=== PATIENT | female | born 1985 | race Caucasian/White ===

== ENCOUNTER 2018-04-10 00:42 | Observation (INO) | payer SELFPAY ==
[2018-04-10] MEDS ORDERED: ASPIRIN 81 MG TABLET, CHEWABLE PO ONE (01:01)
--- NOTE | 2018-04-10 01:02 | ER Document Report ---
ED Medical Screen (RME) - General Chief Complaint: Chest Pain Stated Complaint: CHEST PAIN/NAUSEA/SHORTNESS OF BREATH Time Seen by Provider: 04/10/18 00:55 Mode of Arrival: Ambulatory Information source: Patient Notes: Timothy is a 32-year-old female comes emergency room complaining of chest pain onset 2 hours prior to arrival. The pain woke her up out of sleep and is on the left side of her chest and radiates down her arm in the left side. States the whole side of her arm is tingly. She admits to being slightly short of breath. She states that she had a major MS back in May of this past year. She admits to be in a type II diabetic which is Lantus dependent so insulin- dependent diabetic taking oral medications as well. She states her family has a strong history of cardiac problems her mother father and all the people on that side of the family. She admits to smoking 1/2 pack cigarettes a day. - HPI Onset: Other - 2 hours prior to arrival Onset/Duration: Sudden, Persistent, Worse Quality of pain: Sharp, Stabbing, Throbbing Pain Level: 4 Associated Symptoms: Cough (nonproductive), Nausea. denies: Vomiting Exacerbated by: Movement, Other - Exertion Relieved by: Denies, Other - Still rates the pain a 7 out of 10 Similar symptoms previously: Yes Recently seen / treated by doctor: No - Related Data Smoking: Non-smoker Past Medical History - General Information source: Patient - Social History Cigarette use (# per day): Yes - Half-pack to a pack a day Chew tobacco use (# tins/day): No Frequency of alcohol use: None Drug Abuse: None Lives with: Family, Spouse/Significant other Family history: Reviewed & Not Pertinent Review of Systems - Review of Systems Constitutional: No symptoms reported EENT: No symptoms reported Cardiovascular: Chest pain Respiratory: Cough, Short of breath Gastrointestinal: No symptoms reported Genitourinary: No symptoms reported Female Genitourinary: No symptoms reported Musculoskeletal: No symptoms reported Skin: No symptoms reported Hematologic/Lymphatic: No symptoms reported Neurological/Psychological: No symptoms reported -: Yes All other systems reviewed and negative Physical Exam - Vital signs Interpretation: Hypertensive - Respiratory Respiratory status: No respiratory distress Chest status: Tender Breath sounds: Decreased air movement, Rhonchi, Wheezing Chest palpation: Normal - Cardiovascular Rhythm: Regular Heart sounds: Normal auscultation Murmur: No - Neurological Neuro grossly intact: Yes Cognition: Normal Orientation: AAOx4 Kenneth Coma Scale Eye Opening: Spontaneous [place] Coma Scale Verbal: Oriented [place] Coma Scale Motor: Obeys Commands [place] Coma Scale Total: 15 Speech: Normal Doctor's Discharge - Discharge Clinical Impression: Chest pain Qualifiers: Chest pain type: unspecified Qualified Code(s): R07.9 - Chest pain, unspecified Forms: Elevated Blood Pressure
--- NOTE | 2018-04-10 01:18 | ER Document Report ---
ED General - General Chief Complaint: Chest Pain Stated Complaint: CHEST PAIN/NAUSEA/SHORTNESS OF BREATH Time Seen by Provider: 04/10/18 00:55 Mode of Arrival: Ambulatory Notes: Patient is a 32-year-old female with a previous history of IA who presents with complaint of chest pain started tonight. She recently moved here from [place]. She had an IA in May of last year. She was seen in [facility]. There she had a heart cath which showed that she had a 70% blockage; however, her artery is too narrow to place a stent and therefore the continue with medical therapy. She currently is on metoprolol and aspirin. She states she has been on Plavix however because the better taste in her mouth and therefore they stopped the medication. She also used to be on a statin however she says "my cholesterol got too low" and therefore they stopped that medication as well. She does not yet have a doctor since moving to this area. She does take medications for diabetes as well. She says her blood sugar usually runs between 2 and 300. The chest pain is substernal left-sided and radiating into the neck and back. She feels a little short of breath with it. No leg pain or leg swelling. No history of PE or DVT. - Related Data Allergies/Adverse Reactions: trazodone Allergy (Verified 04/10/18 01:10) Past Medical History - General Information source: Patient - Social History Smoking Status: Unknown if Ever Smoked Cigarette use (# per day): Yes - Half-pack to a pack a day Chew tobacco use (# tins/day): No Frequency of alcohol use: None Drug Abuse: None Lives with: Family, Spouse/Significant other Family History: CAD Review of Systems - Review of Systems Notes: My Normal Review Basic REVIEW OF SYSTEMS: CONSTITUTIONAL : Denies fever, chills, or sweats. Denies recent illness. EENT: Denies eye, ear, throat, or mouth pain or symptoms. Denies nasal or sinus congestion. CARDIOVASCULAR: Has chest pain RESPIRATORY: Denies cough, cold, or chest congestion. Denies shortness of breath, difficulty breathing, or wheezing. GASTROINTESTINAL: Denies abdominal pain. Denies nausea, vomiting, or diarrhea. MUSCULOSKELETAL: Denies neck or back pain or joint pain or swelling. SKIN: Denies rash or skin lesions. NEUROLOGICAL: Denies altered mental status or loss of consciousness. ALL OTHER SYSTEMS REVIEWED AND NEGATIVE. Physical Exam - Vital signs Vitals: Temp Pulse Resp BP Pulse Ox 97.8 F 82 20 156/85 H 100 04/10/18 00:59 04/10/18 00:59 04/10/18 00:59 04/10/18 00:59 04/10/18 00:59 - Notes Notes: General Appearance: Well nourished, alert, cooperative, no acute distress, moderate obvious discomfort. Vitals: reviewed, See vital signs table. Eyes: PERRL, EOMI, Conjuctiva clear Mouth: No decreasd moisture Chest wall: No reproducible pain to palpation of chest wall. Lungs: No wheezing, No rales, No rhonci, No accessory muscle use, good air exchange bilaterally. Heart: Normal rate, Regular rythm, No murmur, no rub Abdomen: Normal BS, soft, No rigidity, No abdominal tenderness, No guarding, no rebound, no abdominal masses, no organomegaly Extremities: strength 5/5 in all extremities, good pulses in all extremities, no swelling or tenderness in the extremities, no edema. Skin: warm, dry, appropriate color, no rash Neuro: speech clear, oriented x 3, normal affect, responds appropriately to questions. Course - Re-evaluation Re-evalutation: 04/10/18 02:05 Patient still have significant pain after nitro. She says the nitro is never really helped in the past. We will give her a dose of morphine. I will recheck her EKG. initial troponin is negative. 04/10/18 02:06 04/10/18 03:01 Patient's repeat EKG is normal-appearing. She still having some pain but says it is improving some since morphine. She says she does have some anxiety because she is scared because of her history. I will give her small dose of Ativan. I talked to patient about admission to the hospital and she is agreeable to this. I will speak with the hospitalist. 04/10/18 04:32 Patient's chest pain has improved significantly but she still has some mild chest pain. Ativan did help with some of her anxiety. I did speak with the hospitalist, Dr. Rodgers, who agrees to evaluate the patient for admission. - Vital Signs Vital signs: Temp Pulse Resp BP Pulse Ox 97.8 F 82 16 138/77 H 96 04/10/18 00:59 04/10/18 00:59 04/10/18 03:31 04/10/18 03:31 04/10/18 03:31 - Laboratory Result Diagrams: 04/10/18 01:15 04/10/18 01:15 Laboratory results interpreted by me: 04/10/18 04/10/18 01:15 01:15 WBC 11.8 H RBC 5.50 H MCH 26.4 L RDW 15.0 H Absolute Neutrophils 8.9 H Sodium 136.9 L Potassium 5.2 H Glucose 209 H - EKG Interpretation by Me Additional EKG results interpreted by me: 04/10/18 01:17 EKG is reviewed and interpreted by me. EKG shows sinus rhythm with a rate of [address] segment elevation or depression. No ischemic T wave inversions. RI interval, QRS duration, QTc intervals are within normal range. No old EKG available for comparison. 04/10/18 02:22 EKG #2 is reviewed and interpreted by me. EKG shows sinus rhythm with a rate of [address] segment elevation or depression. No ischemic T wave inversions. RI interval, QRS duration, QTc intervals are within normal range. Discharge - Discharge Clinical Impression: Chest pain Qualifiers: Chest pain type: unspecified Qualified Code(s): R07.9 - Chest pain, unspecified Condition: Stable Disposition: ADMITTED OBSERVATION Admitting Provider: Hospitalist Unit Admitted: Telemetry Forms: Elevated Blood Pressure
[2018-04-10 01:32] LABS: ABSOLUTE BASOPHILS # (AUTO) 0.1 10^3/uL (0.0-0.2); ABSOLUTE EOSINOPHILS # (AUTO) 0.2 10^3/uL (0.0-0.6); ABSOLUTE MONOCYTES (AUTO) 0.6 10^3/uL (0.1-1.4); ABSOLUTE NEUT (AUTO) 8.9 10^3/uL (1.7-8.2); HEMATOCRIT 44.4 % (36.0-47.0); HEMOGLOBIN 14.5 g/dL (12.0-15.5); MEAN CORPUSCULAR HEMOGLOBIN 26.4 pg (27.0-33.4); MEAN CORPUSCULAR HGB CONC 32.7 g/dL (32.0-36.0); MEAN CORPUSCULAR VOLUME 81 fl (80-97); MONOCYTES % (AUTO) 5.1 % (3-13); PLATELET COUNT 296 10^3/uL (150-450); SEGMENTED NEUTROPHILS % (AUTO) 74.9 % (42-78); TOTAL CELLS COUNTED % (AUTO) 100 %; WHITE BLOOD COUNT 11.8 10^3/uL (4.0-10.5)
[2018-04-10] MEDS: NITROGLYCERIN 0.4 MG/TAB 25 TAB/BOTTLE SL PRN ×2 (01:33→02:16)
[2018-04-10 01:44] LABS: ALANINE AMINOTRANSFERASE 21 U/L (9-52); ALBUMIN 4.5 g/dL (3.5-5.0); ALKALINE PHOSPHATASE 111 U/L (38-126); ANION GAP 12 (5-19); ASPARTATE AMINO TRANSFERASE 16 U/L (14-36); BILIRUBIN,DIRECT 0.3 mg/dL (0.0-0.4); BILIRUBIN,TOTAL 0.4 mg/dL (0.2-1.3); BLOOD UREA NITROGEN 11 mg/dL (7-20); CALCIUM 9.6 mg/dL (8.4-10.2); CARBON DIOXIDE 24 mmol/L (22-30); CHLORIDE 101 mmol/L (98-107); GLUCOSE 209 mg/dL (75-110); POTASSIUM 5.2 mmol/L (3.6-5.0); SODIUM 136.9 mmol/L (137-145); TOTAL PROTEIN 7.3 g/dL (6.3-8.2)
[2018-04-10 01:55] LABS: CREATINE KINASE MB 0.53 ng/mL (<4.55)
[2018-04-10 01:57] LABS: TROPONIN I < 0.012 ng/mL
--- NOTE | 2018-04-10 02:04 | RADIOLOGY REPORT (SQ) ---
CLINICAL HISTORY: chest pain COMPARISON: None. TECHNIQUE: XR CHEST 1 VIEW 04/10/2018 1:25 AM CDT FINDINGS: Cardiac silhouette is normal in size. Lungs are clear without consolidation, atelectasis, mass or edema. There is no pleural effusion. There is no pneumothorax. There are no acute osseous findings. IMPRESSION: Clear lungs.
[2018-04-10] MEDS ORDERED: MORPHINE SULFATE 10 MG/ML INJ IV ONE ×2 (02:05→03:01)
[2018-04-10] MEDS ORDERED: LORAZEPAM INJ 2 MG/1 ML VIAL IV ONE (03:01)
[2018-04-10] MEDS ORDERED: PROMETHAZINE HCL INJ 25 MG/1 ML VIAL IV PRN (04:32)
[2018-04-10] MEDS ORDERED: PROMETHAZINE HCL 25 MG TABLET PO PRN (04:32)
[2018-04-10] MEDS ORDERED: ACETAMINOPHEN 325 MG TABLET PO PRN (04:32)
[2018-04-10] MEDS ORDERED: NITROGLYCERIN 0.4 MG/TAB 25 TAB/BOTTLE SL PRN (04:44)
[2018-04-10 04:48] LABS: APPEARANCE,URINE CLEAR; BILIRUBIN,URINE NEGATIVE (NEGATIVE); COLOR,URINE STRAW; GLUCOSE, URINE NEGATIVE (NEGATIVE); KETONES,URINE NEGATIVE (NEGATIVE); LEUKOCYTE ESTERASE,URINE NEGATIVE (NEGATIVE); NITRITE,URINE NEGATIVE (NEGATIVE); PROTEIN,URINE NEGATIVE (NEGATIVE); URINE SPECIFIC GRAVITY 1.011; UROBILINOGEN,URINE NEGATIVE mg/dL (<2.0)
[2018-04-10 05:02] LABS: URINE AMPHETAMINES SCREEN NEGATIVE; URINE BARBITURATES SCREEN NEGATIVE; URINE BENZODIAZEPINES SCREEN NEGATIVE; URINE COCAINE SCREEN NEGATIVE; URINE MARIJUANA (THC) SCREEN NEGATIVE; URINE METHADONE SCREEN NEGATIVE; URINE PHENCYCLIDINE SCREEN NEGATIVE
[2018-04-10] MEDS ORDERED: DEXTROSE 50%-WATER 25 GM/50 ML DISP.SYRIN IV PRN ×2 (05:21)
[2018-04-10] MEDS ORDERED: DEXTROSE 40% GEL 15 GM TUBE PO PRN ×2 (05:21)
[2018-04-10] MEDS ORDERED: GLUCAGON,HUMAN RECOMB 1 MG INJ IM PRN (05:21)
--- NOTE | 2018-04-10 06:13 | EKG REPORT ---
SEVERITY:- BORDERLINE ECG - SINUS RHYTHM BORDERLINE PROLONGED QT INTERVAL : Confirmed by: Pepito Hall MD 10-Apr-2018 06:13:24
--- NOTE | 2018-04-10 06:13 | EKG REPORT ---
SEVERITY:- NORMAL ECG - SINUS RHYTHM : Confirmed by: Pepito Hall MD 10-Apr-2018 06:13:14
[2018-04-10] MEDS: MORPHINE SULFATE 10 MG/ML INJ IV PRN ×4 (06:34→23:30)
[2018-04-10] MEDS ORDERED: METOPROLOL TARTRATE PF/INJ 5 MG/5 ML SDV IV PRN (06:37)
--- NOTE | 2018-04-10 06:37 | PDOC H&P ---
History of Present Illness Admission Date/PCP: 04/10/18 04:37 None Patient complains of: Chest pain History of Present Illness: ABRAHAM CROCKER is a 32 year old female with medical history of myocardial infarctions diagnosed May 2017 in [place] who comes to the emergency department complaining of chest pain. Patient tells me that she was sleeping and just woke up suddenly with severe nausea followed by left side chest pain radiated to the left shoulder "ache" in nature, 10/10 intensity, associated with numbness, tingling, sore, aching of both upper extremities. Took Pepcid but did not help well and she was feeling that it was hurting when she swallows. Complains of hands swelling, sweating, weakness, shaking, shortness of breath, dizziness. Denies vomiting, abdominal pain, diarrhea or urinary symptoms. Tells me that she feels similar when she had her heart attack last year. Tells me that she woke little distances as she feels tired easily Patient had a stress test in [place] July or August this year, as per her was inconclusive. Her last cardiac catheterization was May 2017 when she was diagnosed with DC, cardiology told her that the left arteries of her heart were abnormally small with 1 having 70% stenosis. She visited 2 different mortuary beautician for 2 different opinions one wanted to do a CABG with bypass and the other one just medical therapy. Tells me that recently was taken off statins. Nitroglycerin given in the emergency and several doses of morphine the patient still complains of pain 5-6/10 intensity. EKG shows sinus rhythm with a ventricular rate of 80 bpm, no ST elevations, ST depressions or T wave inversions, repeated EKG unremarkable. Past Medical History Cardiac Medical History: Reports: Myocardial Infarction - May 2017, Hyperlipidema, Hypertension Endocrine Medical History: Reports: Diabetes Mellitus Type 2 Psychiatric Medical History: Reports: General Anxiety Disorder, Post Traumatic Stress Disorder Past Surgical History Past Surgical History: Reports: Cholecystectomy Social History Lives with: Family, Spouse/Significant other Smoking Status: Current Every Day Smoker - 1 pack/day Frequency of Alcohol Use: None Hx Recreational Drug Use: No Hx Prescription Drug Abuse: No Past Social History Note: Moved from [place] January 2018, currently lives with her sister and fianc. - Advance Directive Resuscitation Status: Full Code Family History Family History: CAD Parental Family History Reviewed: Yes - As above Children Family History Reviewed: NA Sibling(s) Family History Reviewed.: NA Medication/Allergy Allergies/Adverse Reactions: trazodone Allergy (Verified 04/10/18 01:10) Review of Systems Review of Systems: As outlined in the HPI, all others negative Physical Exam Vital Signs: Temp Pulse Resp BP Pulse Ox 97.8 F 82 12 154/89 H 96 04/10/18 00:59 04/10/18 00:59 04/10/18 05:01 04/10/18 05:00 04/10/18 05:01 Additional comments: General appearance: Well-developed, obese, alert and cooperative, and appears to be in no acute distress Head: Normocephalic Eyes: PEERL, EOMI, vision is grossly intact. Ears: External auditory canal and tympanic membranes clear, hearing grossly intact. Nose: No nasal discharge. Throat: Oral cavity and pharynx normal. No inflammation, swelling, exudate or lesions. Neck: Neck supple, nontender without lymphadenopathy, masses or thyromegaly. Cardiac: Normal S1 and S2. No S3, S4 or murmurs. Rhythm is regular. There is no peripheral edema, cyanosis or pallor. Extremities are warm and well perfused. Capillary refill is less than 2 seconds. No carotid bruits. Thorax : No reproducible pain to palpation Lungs: Clear to auscultation and percussion without rales, rhonchi, wheezing or diminished breath sounds. Not using accessory muscles. Abdomen: Positive bowel sounds. Soft. Nondistended, nontender. No guarding or rebound. No masses. No hepatosplenomegaly Extremities: No significant deformity or joint abnormality. No edema. Peripheral pulses intact. No varicosities. Neurological: Cranial nerves II through XII grossly intact. Strength and sensation symmetric and intact throughout. Reflexes 2+ throughout. Skin: Skin normal color, texture and turgor with no lesions or eruptions, warm and dry. Psychiatric: The mental examination revealed the patient was oriented to person , place, and time. The patient was able to demonstrate good judgment on recent , without hallucinations, abnormal affect or abnormal behaviors. Results Laboratory Results: 04/10/18 04/10/18 04/10/18 01:15 01:15 01:15 WBC 11.8 H RBC 5.50 H Hgb 14.5 Hct 44.4 MCV 81 MCH 26.4 L MCHC 32.7 RDW 15.0 H Plt Count 296 Seg Neutrophils % 74.9 Lymphocytes % 17.0 Monocytes % 5.1 Eosinophils % 2.0 Basophils % 1.0 Absolute Neutrophils 8.9 H Absolute Lymphocytes 2.0 Absolute Monocytes 0.6 Absolute Eosinophils 0.2 Absolute Basophils 0.1 Sodium 136.9 L Potassium 5.2 H Chloride 101 Carbon Dioxide 24 Anion Gap 12 BUN 11 Creatinine 0.73 Est GFR ( Amer) > 60 Est GFR (Non-Af Amer) > 60 Glucose 209 H Calcium 9.6 Magnesium 1.9 Total Bilirubin 0.4 Direct Bilirubin 0.3 AST 16 ALT 21 Alkaline Phosphatase 111 CK-MB (CK-2) 0.53 Troponin I < 0.012 Total Protein 7.3 Albumin 4.5 Serum HCG, Qual Urine Color Urine Appearance Urine pH Ur Specific Dike Urine Protein Urine Glucose (UA) Urine Ketones Urine Blood Urine Nitrite Urine Bilirubin Urine Urobilinogen Ur Leukocyte Esterase Urine WBC (Auto) Urine Bacteria (Auto) Squamous Epi Cells Auto Urine Mucus (Auto) Urine Opiates Screen Urine Methadone Screen Ur Barbiturates Screen Ur Phencyclidine Scrn Ur Amphetamines Screen U Benzodiazepines Scrn Urine Cocaine Screen U Marijuana (THC) Screen 04/10/18 04/10/18 04/10/18 01:15 03:15 03:15 WBC RBC Hgb Hct MCV MCH MCHC RDW Plt Count Seg Neutrophils % Lymphocytes % Monocytes % Eosinophils % Basophils % Absolute Neutrophils Absolute Lymphocytes Absolute Monocytes Absolute Eosinophils Absolute Basophils Sodium Potassium Chloride Carbon Dioxide Anion Gap BUN Creatinine Est GFR ( Amer) Est GFR (Non-Af Amer) Glucose Calcium Magnesium Total Bilirubin Direct Bilirubin AST ALT Alkaline Phosphatase CK-MB (CK-2) Troponin I Total Protein Albumin Serum HCG, Qual NEGATIVE Urine Color STRAW Urine Appearance CLEAR Urine pH 6.0 Ur Specific Dike 1.011 Urine Protein NEGATIVE Urine Glucose (UA) NEGATIVE Urine Ketones NEGATIVE Urine Blood NEGATIVE Urine Nitrite NEGATIVE Urine Bilirubin NEGATIVE Urine Urobilinogen NEGATIVE Ur Leukocyte Esterase NEGATIVE Urine WBC (Auto) 0 Urine Bacteria (Auto) TRACE Squamous Epi Cells Auto 4 Urine Mucus (Auto) RARE Urine Opiates Screen UNCONFIRMED POSITIVE Urine Methadone Screen NEGATIVE Ur Barbiturates Screen NEGATIVE Ur Phencyclidine Scrn NEGATIVE Ur Amphetamines Screen NEGATIVE U Benzodiazepines Scrn NEGATIVE Urine Cocaine Screen NEGATIVE U Marijuana (THC) Screen NEGATIVE EKG Comments: Sinus rhythm with ventricular rate in the 80s, case elevation, ST depression or T wave impression Impressions: Chest X-Ray 04/10/18 01:25 IMPRESSION: Clear lungs. Assessment & Plan - Diagnosis (1) Chest pain Qualifiers: Chest pain type: unspecified Qualified Code(s): R07.9 - Chest pain, unspecified Is this a current diagnosis for this admission?: Yes Plan: Patient comes to the emergency department with sudden onset of chest pain, her symptoms are atypical but tells me that it is similar to when she had her heart attack May 2017. Last stress test July or August of this year, will have to request records. We will keep the patient on telemetry monitoring, complete cardiac markers x3, so far the first 1 is negative with 2 EKGs unremarkable. Stress test. Nitroglycerin sublingual and IV morphine as needed , of note that the patient request frequent dose of morphine. Hemoglobin A1c and lipid panel in the morning. (2) Diabetes mellitus type 2 in obese Is this a current diagnosis for this admission?: Yes Plan: Continue with home medications. Accu-Cheks q. before meals and at bedtime, insulin lispro sliding scale and hypoglycemia protocol. Hemoglobin A1c. (3) Hypertension Is this a current diagnosis for this admission?: Yes Plan: Continue home antihypertensive medications, IV Lopressor as needed. (4) Coronary artery disease Is this a current diagnosis for this admission?: Yes Plan: Patient with history of myocardial infarction on May 2017. Continue with home medications. Surprised that she was taken off of statins. To request records in [place]. (5) Nicotine dependence Qualifiers: Nicotine product type: cigarettes Is this a current diagnosis for this admission?: Yes Plan: Cigarettes 1 pack/day. Nicotine patch 21 mg/day - Time Time Spent: 50 to 70 Minutes
[2018-04-10] MEDS ORDERED: PANTOPRAZOLE SODIUM 40 MG VIAL IV ONE (06:38)
[2018-04-10 09:02] LABS: CHOLESTEROL 219.79 mg/dL (0-200); TRIGLYCERIDES 232 mg/dL (<150)
[2018-04-10] MEDS: ENOXAPARIN SODIUM INJ 40 MG/0.4 ML DISP.SYRIN SUBCUT SCH (09:10)
[2018-04-10 09:13] LABS: DIRECT LDL 155 mg/dL (<100)
[2018-04-10 09:18] LABS: VLDL CHOLESTEROL 46.4 mg/dL (10-31)
[2018-04-10] MEDS: NICOTINE 14 MG/24 HR PATCH.TD24 TD PRN (11:26)
[2018-04-10] MEDS ORDERED: FAMOTIDINE 20 MG TABLET PO PRN (11:54)
[2018-04-10] MEDS ORDERED: (PENDING PHARMACY ID) (Sertraline Hcl [Zoloft] 25 MG) PO SCH (12:00)
[2018-04-10] MEDS: SERTRALINE HCL 50 MG TABLET PO SCH (12:28)
[2018-04-10] MEDS: METOPROLOL TARTRATE 50 MG TABLET PO SCH ×2 (12:28→21:10)
[2018-04-10] MEDS: INSULIN GLARGINE,HUM.REC.ANLOG 300 UNIT/3 ML INSULN.PEN SUBCUT SCH (12:29)
--- NOTE | 2018-04-10 17:41 | Progress Note ---
Provider Note Provider Note: When I came in to see her, she was sitting propped up in the bed with her eyes closed, leaning slightly forward, and her mouth open and her tongue sticking out a little bit. She was a little difficult to arouse. When she finally woke up she could barely open her eyes, and her speech was slurred but her mouth movements were symmetrical. I was concerned that she was oversedated, and seeing as how her morphine was ordered every 3 hours, in interest of her safety and the desire to avoid any adverse event I increased the interval on her morphine from every 3 hours to 6 hours to avoid oversedation. Her first 2 troponins are negative. A third troponin is pending. Apparently they did not want to do her stress test today because the third troponin was not back at the time I saw her.
[2018-04-10] MEDS: INSULIN LISPRO 100 UNIT/ML 3 ML VIAL SUBCUT PRN ×2 (17:43→23:30)
[2018-04-10] MEDS: TEMAZEPAM 7.5 MG CAPSULE PO PRN (21:11)
[2018-04-11 05:23] LABS: CHOLESTEROL 228.52 mg/dL (0-200); TRIGLYCERIDES 304 mg/dL (<150)
[2018-04-11] MEDS: MORPHINE SULFATE 10 MG/ML INJ IV PRN ×3 (05:30→21:57)
[2018-04-11 05:34] LABS: DIRECT LDL 142 mg/dL (<100)
[2018-04-11 05:42] LABS: VLDL CHOLESTEROL 60.8 mg/dL (10-31)
[2018-04-11] MEDS: NICOTINE 14 MG/24 HR PATCH.TD24 TD PRN (12:08)
[2018-04-11] MEDS: LORATADINE 10 MG TABLET PO SCH (12:09)
[2018-04-11] MEDS: ASPIRIN 81 MG TABLET, ENT COATED PO SCH (12:09)
[2018-04-11] MEDS: METOPROLOL TARTRATE 50 MG TABLET PO SCH ×2 (12:09→21:58)
[2018-04-11] MEDS: SERTRALINE HCL 50 MG TABLET PO SCH (12:10)
[2018-04-11] MEDS: ENOXAPARIN SODIUM INJ 40 MG/0.4 ML DISP.SYRIN SUBCUT SCH (12:11)
--- NOTE | 2018-04-11 12:17 | PDOC PROGRESS REPORT ---
Subjective Progress Note for:: 04/11/18 Subjective:: ABRAHAM CROCKER is a 32 year old female with medical history of myocardial infarctions diagnosed May 2017 in [place] who comes to the emergency department complaining of chest pain. Patient tells me that she was sleeping and just woke up suddenly with severe nausea followed by left side chest pain radiated to the left shoulder "ache" in nature, 10/10 intensity, associated with numbness, tingling, sore, aching of both upper extremities. Patient was found to be somnolent by Dr. Jones yesterday who decreased her morphine to every 6 hours. She has been complaining that her pain is not adequately controlled. But her rating of her pain seems disproportionate to clinical findings. Serial troponins have been negative x4 EKG is essentially normal. Patient has this cardiac history from [place] and records have been requested. Reason For Visit: CHEST PAIN Physical Exam Vital Signs: Temp Pulse Resp BP Pulse Ox 97.5 F 72 16 107/61 97 04/11/18 07:35 04/11/18 07:35 04/11/18 07:35 04/11/18 07:35 04/11/18 07:35 Intake & Output 04/10/18 04/11/18 04/12/18 06:59 06:59 06:59 Intake Total 1016 Output Total 1400 Balance -384 General appearance: PRESENT: mild distress Head exam: PRESENT: atraumatic, normocephalic Neck exam: ABSENT: carotid bruit, JVD, lymphadenopathy, thyromegaly Respiratory exam: PRESENT: clear to auscultation shakila. ABSENT: rales, rhonchi, wheezes Cardiovascular exam: PRESENT: RRR, other - Dull constant pain left chest left shoulder. ABSENT: diastolic murmur, rubs, systolic murmur GI/Abdominal exam: PRESENT: normal bowel sounds, soft, tenderness - Mild midepigastric tenderness. ABSENT: distended, guarding, mass, organolmegaly, rebound Extremities exam: PRESENT: full ROM. ABSENT: calf tenderness, clubbing, pedal edema Psychiatric exam: PRESENT: anxious Results Laboratory Results: 04/11/18 03:47 Magnesium 2.0 Triglycerides 304 H Cholesterol 228.52 H LDL Cholesterol Direct 142 H VLDL Cholesterol 60.8 H HDL Cholesterol 34 L 04/10/18 04/10/18 04/10/18 07:59 13:40 19:15 Troponin I < 0.012 < 0.012 < 0.012 Impressions: Chest X-Ray 04/10/18 01:25 IMPRESSION: Clear lungs. Assessment & Plan - Diagnosis (1) Chest pain Qualifiers: Chest pain type: unspecified Qualified Code(s): R07.9 - Chest pain, unspecified Is this a current diagnosis for this admission?: Yes Plan: Chest pain in a patient who claims to have underlying coronary disease. Patient 's EKG is unimpressive troponins are serial negative x4 now. Patient was unable to get her stress test due to drinking a caffeinated beverage. Given the fact her pain is constant it seems unlikely this is cardiac. Her saturations were in the high 90s on room air. Because of the disproportionate level of pain and the ongoing complaint will obtain a CT a of the chest to rule out both pulmonary embolism and other underlying pathologies as patient is a smoker. Continue her IV morphine for the present we will not increase the frequency as there is no clear etiology for her pain. She is requesting anxiolytics as well which will be not be given due to her somnolent nature yesterday. I have discussed the case with Dr. Bonilla who will see the patient in consultation will obtain an echocardiogram we will also obtain an ESR and CRP for noncardiac causes of her chest pain. Have asked nursing to request cardiac catheterization records from [place] (2) Diabetes mellitus type 2 in obese Is this a current diagnosis for this admission?: Yes Plan: Hemoglobin A1c 8.9. Continue sliding scale and increase Lantus to 16 units (3) Hypertension Is this a current diagnosis for this admission?: Yes Plan: Normotensive no change in blood pressure medications continue to monitor (4) Coronary artery disease Is this a current diagnosis for this admission?: Yes Plan: I requested records from [place]. Consult cardiology. Patient's not at goal with her cholesterol and states that her statins were recently discontinued unclear if this was an allergic reaction or drug intolerance. Will have to it discuss further with patient as she is not at goal currently. (5) Nicotine dependence Qualifiers: Nicotine product type: cigarettes Is this a current diagnosis for this admission?: Yes Plan: Smoking cessation urged. Continue NicoDerm while in hospital - Time Time Spent with patient: 25-34 minutes
[2018-04-11] MEDS: INSULIN GLARGINE,HUM.REC.ANLOG 300 UNIT/3 ML INSULN.PEN SUBCUT SCH ×2 (12:23→14:25)
--- NOTE | 2018-04-11 14:15 | RADIOLOGY REPORT (SQ) ---
EXAM DESCRIPTION: CTA CHEST COMPLETED DATE/TIME: 04/11/2018 2:00 pm REASON FOR STUDY: left chest pain COMPARISON: None. TECHNIQUE: CT scan of the chest performed using helical scanning technique with dynamic intravenous contrast injection. Images reviewed with lung, soft tissue and bone windows. Reconstructed coronal and sagittal MPR images reviewed. Additional 3 dimensional post-processing performed to develop Maximal Intensity Projection images (PA P). All images stored on PACS. All CT scanners at this facility use dose modulation, iterative reconstruction, and/or weight based d osing when appropriate to reduce radiation dose to as low as reasonably achievable (ALARA). [facility]: Dose Right [facility]: CareDose [facility]: Dose Right [facility]: Teradose 4D [facility]: Vupen CONTRAST TYPE AND DOSE: contrast/concentration: Isovue 350.00 mg/ml; Total Contrast Delivered: 69.0 ml; Total Saline Delivered: 110.0 ml Contrast bolus optimized for the pulmonary arteries. Not diagnostic for the aorta. RENAL FUNCTION: BUN 11, creatinine 0.73 RADIATION DOSE: CT Rad equipment meets quality standard of care and radiation dose reduction techniq ues were employed. CTDIvol: 1.9 - 14.8 mGy. DLP: 545 mGy-cm. . LIMITATIONS: None. FINDINGS: LUNGS AND PLEURA: No masses, infiltrates, or pneumothorax. No pleural effusions or pleura l calcifications. AORTA AND GREAT VESSELS: No aneurysm. Contrast bolus not optimized for the aorta. HEART: No pericardial effusion. No significant coronary artery calcifications. PULMONARY ARTERIES: No emboli visualized in the main pulmonary arteries or the segmental branches. HILAR AND MEDIASTINAL STRUCTURES: No identified masses or abnormal nodes. HARDWARE: None in the chest. UPPER ABDOMEN: No significant findings. Limited exam. THYROID AND OTHER SOFT TISSUES: No thyroid masses. There are small bilateral axilla lymph nodes most likely reactive. BONES: No acute or significant finding. 3D MIPS: Confirm above findings. OTHER: No other significant finding. IMPRESSION: NORMAL CTA OF THE CHEST. NO PULMONARY EMBOLI. COMMENT: Quality ID # [id number]: Final reports with documentation of one or more dose reduction techniques (e.g., Automated exposure control, adjustment of the mA and/or kV according to patient size, use of iterative reconstruction technique) TECHNICAL DOCUMENTATION: JOB ID: [id number] [employer]- All Rights Reserved Reading location - IP[facility]workstation name: [facility]
[2018-04-11] MEDS: INSULIN LISPRO 100 UNIT/ML 3 ML VIAL SUBCUT PRN ×3 (14:25→21:59)
--- NOTE | 2018-04-11 18:05 | XCELERA REPORT ---
[address] [address] Transthoracic Echocardiogram Report Name: ABRAHAM CROCKER Age: 32 yrs Gender: Female : 1985 Patient Status: Inpatient Patient Location: [address] [place] [address] Study Date: 04/11/2018 02:52 PM Procedure: A complete two-dimensional transthoracic echocardiogram was performed (2D, M-mode, spectral and color flow Doppler). The study was technically difficult with many images being suboptimal in quality. Reason For Study: cad prior mi CP Ordering Physician: HECTOR SOUZA Performed By: Sherrie Nunez Interpretation Summary The study was technically difficult with many images being suboptimal in quality. The left ventricular ejection fraction is preserved. Consider additional methods to assess LVEF such as MUGA scan, CTA heart, cardiac MRI, TYRESE, etc. if clinically indicated. There is borderline concentric left ventricular hypertrophy. The left ventricle is grossly normal size. Doppler measurements suggest normal left ventricular diastolic function Wall motion cannot be accurately commented on, but no definite regional wall motion abnormalities noted. The right ventricular systolic function is normal. The right atrium is normal. The left atrial size is normal. There is no mitral regurgitation noted. There is no mitral valve stenosis. No aortic regurgitation is present. There is no aortic valve stenosis There is a trace or physiologic amount of tricuspid regurgitation There is no tricuspid stenosis. The aortic root is not well visualized but is probably normal size. The inferior vena cava was not well visualized There is no pericardial effusion. MMode/2D Measurements & Calculations RVDd: 2.5 cm LVIDd: 5.6 cm FS: 35.6 % Ao root diam: 2.8 cm IVSd: 0.76 cm LVIDs: 3.6 cm EDV(Teich): 155.7 ml Ao root area: 6.1 cm2 LVPWd: 0.91 cm ESV(Teich): 55.4 ml EF(Teich): 64.4 % Doppler Measurements & Calculations MV E max faith: MV dec slope: Ao V2 max: LV V1 max P.0 cm/sec 125.3 cm/sec 2.6 mmHg MV A max faith: 487.9 cm/sec2 Ao max PG: LV V1 max: 76.5 cm/sec MV dec time: 0.15 sec6.3 mmHg 80.8 cm/sec MV E/A: 0.97 PA V2 max: TR max faith: 75.2 cm/sec 218.8 cm/sec PA max P.3 mmHg TR max P.1 mmHg Left Ventricle The left ventricle is grossly normal size. There is borderline concentric left ventricular hypertrophy. The left ventricular ejection fraction is preserved. Consider additional methods to assess LVEF such as MUGA scan, CTA heart, cardiac MRI, TYRESE, etc. if clinically indicated. Doppler measurements suggest normal left ventricular diastolic function. Wall motion cannot be accurately commented on, but no definite regional wall motion abnormalities noted. Right Ventricle Borderline right ventricular enlargement. There is normal right ventricular wall thickness. The right ventricular systolic function is normal. Atria The right atrium is normal. The left atrial size is normal. Interarterial septum not well visualized and not well dopplered. Cannot comment on ASD/PFO presence. Mitral Valve The mitral valve leaflets are sclerotic, but show no functional abnormalities. There is no mitral valve stenosis. There is no mitral regurgitation noted. Aortic Valve The aortic valve is not well visualized secondary to technical limitations. There is no aortic valve stenosis. No aortic regurgitation is present. Tricuspid Valve The tricuspid valve is not well visualized secondary to technical limitations. There is no tricuspid stenosis. There is a trace or physiologic amount of tricuspid regurgitation. Pulmonic Valve The pulmonic valve is not well visualized. Great Vessels The aortic root is not well visualized but is probably normal size. The inferior vena cava was not well visualized. Effusions There is no pericardial effusion. : HECTOR SOUZA > Frannie Bonilla
--- NOTE | 2018-04-11 19:31 | PDOC CONSULTATION ---
Consultation Consult Date: 04/11/18 Attending physician:: KAREN SALMON Consult reason:: Chest pain History of Present Illness Admission Date/PCP: 04/10/18 04:37 Patient complains of: Chest pain History of Present Illness: ABRAHAM CROCKER is a 32 year old female with medical history of myocardial infarctions diagnosed May 2017 in [place] who comes to the emergency department complaining of chest pain. Patient tells me that she was sleeping and just woke up suddenly with severe nausea followed by left side chest pain radiated to the left shoulder "ache" in nature, 10/10 intensity, associated with numbness, tingling, sore, aching of both upper extremities. Took Pepcid but did not help well and she was feeling that it was hurting when she swallows. Complains of hands swelling, sweating, weakness, shaking, shortness of breath, dizziness. Denies vomiting, abdominal pain, diarrhea or urinary symptoms. Tells me that she feels similar when she had her heart attack last year. Tells me that she woke little distances as she feels tired easily Patient had a stress test in [place] July or August this year, as per her was inconclusive. Her last cardiac catheterization was May 2017 when she was diagnosed with HI, cardiology told her that the left arteries of her heart were abnormally small with 1 having 70% stenosis. She visited 2 different test puller for 2 different opinions one wanted to do a CABG with bypass and the other one just medical therapy. Tells me that recently was taken off statins. Nitroglycerin given in the emergency and several doses of morphine the patient still complains of pain 5-6/10 intensity. EKG shows sinus rhythm with a ventricular rate of 80 bpm, no ST elevations, ST depressions or T wave inversions, repeated EKG unremarkable. This history was reviewed with the patient and confirmed. There is still awaiting to get official report from the hospital where she had the heart catheterization performed. Past Medical History Cardiac Medical History: Reports: Myocardial Infarction - May 2017, Hyperlipidema, Hypertension Endocrine Medical History: Reports: Diabetes Mellitus Type 2 Psychiatric Medical History: Reports: Depression, General Anxiety Disorder, Post Traumatic Stress Disorder Past Surgical History Past Surgical History: Reports: Cardiac Catheterization, Cholecystectomy Social History Information Source: Patient Lives with: Family, Spouse/Significant other Smoking Status: Current Every Day Smoker Frequency of Alcohol Use: None Hx Recreational Drug Use: No Hx Prescription Drug Abuse: No - Advance Directive Resuscitation Status: Full Code Family History Family History: CAD Parental Family History Reviewed: Yes Children Family History Reviewed: Yes Sibling(s) Family History Reviewed.: Yes Medication/Allergy Home Medications: Aspirin [Ecotrin 81 mg EC Tablet] 81 mg PO DAILY 04/10/18 Famotidine [Pepcid 20 mg Tablet] 20 mg PO DAILYP PRN 04/10/18 Insulin Glargine,Hum.rec.anlog [Lantus Solostar] 12 units SQ DAILY 04/10/18 Loratadine [Claritin 10 mg Tablet] 10 mg PO DAILY 04/10/18 Metoprolol Tartrate [Lopressor 50 mg Tablet] 75 mg PO Q12 04/10/18 Sertraline HCl [Zoloft] 25 mg PO DAILY 04/10/18 Allergies/Adverse Reactions: trazodone Allergy (Verified 04/10/18 01:10) Review of Systems Review of Systems: Please see history of present illness and past medical history as wall. Constitutional: No fever or chills reported. Head : No recent chronic headaches, recent head injury. Eyes: No recent eye pain, diplopia, redness, discharge, acute visual changes. Ears: No recent chronic ear pain, acute hearing loss, ear discharge. Oral cavity: No recent ulcerations, bleeding, oral cavity discomfort. Neck: No recent acute neck pain reported. Hematologic: No recent easy bruising or bleeding. Lymphatic: No recent lymph node enlargement reported. Cardiovascular system review: See history of present illness. Respiratory system review: No hemoptysis or blood clots in the lungs reported. Shortness of breath on exertion Gastrointestinal system review: Negative for any recent acute hematemesis, melena. Genitourinary system review: No recent acute or chronic hematuria, flank pain, UTI etc. reported. Skin system review: Negative for any recent abnormal bruising, no rash, no pruritus reported. Neurologic: No prior history of strokes, mini strokes, seizure disorder. Psychologic: No history of major psychosis or major depression reported. Musculoskeletal: Minor aches and pains reported. No acute joint swelling reported. Endocrine: No recent polyuria, polydipsia, recent heat or cold intolerance. Physical Exam Vital Signs: Temp Pulse Resp BP Pulse Ox 98.3 F 64 16 137/81 H 100 04/11/18 15:32 04/11/18 15:32 04/11/18 15:32 04/11/18 15:32 04/11/18 15:32 Intake & Output 04/10/18 04/11/18 04/12/18 06:59 06:59 06:59 Intake Total 1016 857 Output Total 1400 1450 Balance -384 -593 Exam: GENERAL: well-nourished and in no acute distress. Alert and oriented x3 HEAD: Atraumatic, normocephalic. EYES: Pupils equal round and reactive to light, extraocular movements intact, sclera anicteric, conjunctiva are normal. ENT: TMs normal, nares patent, oropharynx clear without exudates. Moist mucous membranes. No oral ulcerations or bleeding gums noted NECK: supple without lymphadenopathy. Trachea is central. No cervical or axillary lymphadenopathy noted. Carotids are 2+, JVD WNL LUNGS: Respiration seems nonlabored, no significant accessory muscle action noted. Breath sounds clear to auscultation bilaterally and equal noted. No wheezes rales or rhonchi noted. No significant dullness noted on percussion. CHEST: Palpation of the chest wall shows significant chest wall tenderness. 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 ABDOMEN: Soft, no significant tenderness appreciated, normoactive bowel sounds. No guarding, no rebound. No rigidity noted . No masses appreciated. EXTREMITIES: Pedal pulses are 1-2+, no calf tenderness noted. No clubbing or cyanosis. negative pedal edema noted NEUROLOGICAL: Focused neurological exam showed no significant neurologic deficit. Normal speech, no focal weakness appreciated. PSYCH: Normal mood, normal affect. Judgment and insight within normal limits. SKIN: No significant ecchymosis, skin is noted to be warm. MUSCULOSKELETAL EXAM: No significant acute joint swelling noted. Results Laboratory Results: 04/11/18 04/11/18 03:47 03:47 Magnesium 2.0 C-Reactive Protein 33.0 H Triglycerides 304 H Cholesterol 228.52 H LDL Cholesterol Direct 142 H VLDL Cholesterol 60.8 H HDL Cholesterol 34 L 04/10/18 04/10/18 04/10/18 07:59 13:40 19:15 Troponin I < 0.012 < 0.012 < 0.012 EKG Comments: Shows sinus rhythm. No acute ST-T wave changes are noted. Impressions: Chest X-Ray 04/10/18 01:25 IMPRESSION: Clear lungs. Chest/Abdomen CTA 04/11/18 00:00 IMPRESSION: NORMAL CTA OF THE CHEST. NO PULMONARY EMBOLI. Assessment & Plan - Diagnosis (1) Chest pain Qualifiers: Chest pain type: unspecified Qualified Code(s): R07.9 - Chest pain, unspecified Is this a current diagnosis for this admission?: Yes (2) Dyslipidemia Is this a current diagnosis for this admission?: Yes (3) Coronary artery disease Qualifiers: Coronary Disease-Associated Artery/Lesion type: [place] artery [place] vs. transplanted heart: [place] heart Is this a current diagnosis for this admission?: Yes (4) Diabetes mellitus type 2 in obese Is this a current diagnosis for this admission?: Yes (5) Hypertension Qualifiers: Hypertension type: essential hypertension Qualified Code(s): I10 - Essential (primary) hypertension Is this a current diagnosis for this admission?: Yes (6) Nicotine dependence Qualifiers: Nicotine product type: cigarettes Is this a current diagnosis for this admission?: Yes - Notes Notes: Chest pain: Multiple different etiologies exist. Patient does have some chest wall tenderness. Patient has known history of CAD and multiple cardiac risk factors. Agree that a nuclear stress test is indicated. This was therefore scheduled. 2D echocardiogram reviewed shows normal LVEF. Dyslipidemia: We will start patient on statin therapy. CAD: To be evaluated further with a nuclear stress test. In the meantime will recommend aggressive risk factor modification and medical management. Diabetes: This is being expertly managed by the hospitalist. Hypertension: Blood pressure goal is 135/85 or less in this young lady with diabetes and known CAD. Nicotine dependence: Patient has been advised to quit smoking. Obesity: Patient will benefit from weight loss and possible evaluation for sleep apnea syndrome if clinically indicated. - Time Time Spent: 30 to 50 Minutes - CODE STATUS was discussed, patient remains full code. Surrogate decision-maker patient's . Multiple medical problems were addressed. More than 50% of the time spent coordinating care, discussing management plans with involved caregivers. Management plans discussed with involved personnels. Medical decision making was of moderate to high complexity , patient's has multiple comorbidities. Medications reviewed and adjusted accordingly: Yes
--- NOTE | 2018-04-11 21:05 | EKG REPORT ---
SEVERITY:- NORMAL ECG - SINUS RHYTHM : Confirmed by: Frannie Bonilla 11-Apr-2018 21:04:59
[2018-04-11] MEDS: TEMAZEPAM 7.5 MG CAPSULE PO PRN (21:58)
[2018-04-11] MEDS ORDERED: ATORVASTATIN CALCIUM 40 MG TABLET PO SCH (22:00)
[2018-04-12] MEDS: MORPHINE SULFATE 10 MG/ML INJ IV PRN ×2 (05:35→11:48)
[2018-04-12 06:05] LABS: ABSOLUTE BASOPHILS # (AUTO) 0.1 10^3/uL (0.0-0.2); ABSOLUTE EOSINOPHILS # (AUTO) 0.2 10^3/uL (0.0-0.6); ABSOLUTE LYMPHOCYTES (AUTO) 2.3 10^3/uL (0.5-4.7); ABSOLUTE MONOCYTES (AUTO) 0.5 10^3/uL (0.1-1.4); ABSOLUTE NEUT (AUTO) 7.1 10^3/uL (1.7-8.2); BASOPHILS % (AUTO) 0.6 % (0-2); HEMATOCRIT 40.9 % (36.0-47.0); HEMOGLOBIN 13.5 g/dL (12.0-15.5); LYMPHOCYTES % (AUTO) 22.5 % (13-45); MEAN CORPUSCULAR HEMOGLOBIN 26.2 pg (27.0-33.4); MEAN CORPUSCULAR HGB CONC 33.1 g/dL (32.0-36.0); MEAN CORPUSCULAR VOLUME 79 fl (80-97); MONOCYTES % (AUTO) 4.7 % (3-13); PLATELET COUNT 255 10^3/uL (150-450); RED BLOOD COUNT 5.15 10^6/uL (3.72-5.28); RED CELL DISTRIBUTION WIDTH 14.8 % (11.5-14.0); SEGMENTED NEUTROPHILS % (AUTO) 70.2 % (42-78); TOTAL CELLS COUNTED % (AUTO) 100 %; WHITE BLOOD COUNT 10.2 10^3/uL (4.0-10.5)
[2018-04-12 06:28] LABS: ANION GAP 10 (5-19); BLOOD UREA NITROGEN 14 mg/dL (7-20); CALCIUM 9.6 mg/dL (8.4-10.2); CARBON DIOXIDE 26 mmol/L (22-30); CHLORIDE 100 mmol/L (98-107); GLUCOSE 169 mg/dL (75-110); POTASSIUM 5.1 mmol/L (3.6-5.0); SODIUM 136.4 mmol/L (137-145)
[2018-04-12] MEDS ORDERED: FAMOTIDINE 20 MG TABLET PO SCH (10:00)
[2018-04-12] MEDS ORDERED: RANOLAZINE 500 MG TAB.SR.12H PO SCH (10:00)
[2018-04-12] MEDS: ENOXAPARIN SODIUM INJ 40 MG/0.4 ML DISP.SYRIN SUBCUT SCH (10:01)
[2018-04-12] MEDS: LORATADINE 10 MG TABLET PO SCH (10:02)
[2018-04-12] MEDS: METOPROLOL TARTRATE 50 MG TABLET PO SCH (10:02)
[2018-04-12] MEDS: SERTRALINE HCL 50 MG TABLET PO SCH (10:03)
[2018-04-12] MEDS: ASPIRIN 81 MG TABLET, ENT COATED PO SCH (10:04)
[2018-04-12] MEDS: INSULIN GLARGINE,HUM.REC.ANLOG 300 UNIT/3 ML INSULN.PEN SUBCUT SCH (10:06)
--- NOTE | 2018-04-12 10:46 | EKG REPORT ---
SEVERITY:- NORMAL ECG - SINUS RHYTHM : Confirmed by: Frannie Bonilla 12-Apr-2018 10:45:10
[2018-04-12] MEDS: INSULIN LISPRO 100 UNIT/ML 3 ML VIAL SUBCUT PRN (11:48)
[2018-04-12] MEDS ORDERED: METOPROLOL TARTRATE 50 MG TABLET PO SCH (11:50)
[2018-04-12] MEDS ORDERED: AMINOPHYLLINE INJ/PF 250 MG/10 ML SDV IV ONE (11:52)
[2018-04-12] MEDS ORDERED: REGADENOSON INJ 0.4 MG/5 ML DISP.SYRIN IV ONE (11:52)
[2018-04-12 12:20] VITALS: BP 138/80
[2018-04-12] MEDS: NICOTINE 14 MG/24 HR PATCH.TD24 TD PRN (12:36)
--- NOTE | 2018-04-12 13:22 | DRAGON STRESS TEST REPORT ---
INTRAVENOUS LEXISCAN CARDIOLITE STRESS TEST USING SINGLE PHOTON EMMISION COMPUTERIZED TOMOGRAPHIC. DATE OF PROCEDURE: April 12, 2018, INDICATION : Chest pain CARDIAC RISK FACTORS: Diabetes, hypertension, history of previous HI and CAD RESTING EKG: Sinus rhythm, no acute ST-T wave changes are noted STRESS EKG: No significant ST segment changes noted with LexiScan bolus REASON FOR TERMINATION: Protocol. PROCEDURE REPORT: Baseline heart rate 70 beats per minute with blood pressure of 129/68. Patient had no significant complaints. Patient was bolused with Lexiscan 0.4 mg intravenously followed by saline bolus. Heart rate at 2 minutes post bolus 98 with a blood pressure of 113/68. 3 minutes post bolus heart rate 87 with blood pressure of 116/77. No significant EKG changes were noted. Patient had no significant complaints during the procedure or postprocedure. CONCLUSIONS: Normal EKG and hemodynamic response to IV LexiScan. NUCLEAR DATA: At rest the patient was given 12.46 millicuries of technetium 99 sestamibi injected intravenously. As per protocol rest gated SPECT images were obtained. On day of stress test, the patient was given intravenous LexiScan at a dose of 0.4 mg in 5 mL intravenously, followed by flush with normal saline. Subsequently the stress dose of 38.4 millicuries of technetium 99 sestamibi was injected intravenously. As per protocol stress gated images were obtained. NUCLEAR INTERPRETATION: Both raw and processed data were used for interpretation. Visual, qualitative, computer-generated quantitative data was used. There was good myocardial uptake of technetium compound. Motion artifact and soft tissue attenuations were noted. Increased visceral uptake was noted. No definitive areas of transient perfusion defect noted, No definitive areas of fixed perfusion defect or scars noted. EKG gated imaging showed LV EF at 61 %, rest and stress gated EF similar visually. T. I D. ratio was 1.23. Lung heart ratio noted to be within normal limits 0.31. No significant extracardiac and abnormal radiotracer activities were noted. RV free wall uptake was noted to be WNL. IMPRESSION: Also refer to comments under nuclear interpretation. Also test results needs to be interpreted in the context of pretest probability. 1. No definitive areas of transient perfusion defect noted. 2. There is no definitive scintigraphic evidence of myocardial infarction/scar. 3. EKG gated imaging shows left ventricular ejection fraction of approx. 61 %. 4. Clinical correlation requested as worse disease and or balanced ischemia could be missed. In approximately 10% of the cases Lexiscan may not cause adequate vasodilatory stress. RECOMMENDATIONS: Aggressive risk factor modification and medical management. Further evaluation may be needed if continued symptoms or other high risk indicators are noted on clinical evaluation. Close cardiology follow-up is also recommended. Clinical correlation with echocardiogram derived ejection fraction. Inability to exercise by itself can lead to increased cardiovascular event risks. Consider cardiology consultation and or follow-up if clinically indicated. I am available for cardiology evaluation and consultation if requested by the microsystems engineer, unless patient already has a baker bench. Dr. Max Bonilla. MRCP Board certified in cardiology and sleep medicine. Board certified in nuclear cardiology, adult echocardiography. JAZMIN
--- NOTE | 2018-04-12 14:13 | PDOC DISCHARGE SUMMARY ---
General - Admit/Disc Date/PCP Admission Date/Primary Care Provider: 04/10/18 04:37 Discharge Date: 04/12/18 - Discharge Diagnosis (1) Chest pain Is this a current diagnosis for this admission?: Yes Summary: Noncardiac in nature. Negative stress test normal echocardiogram negative troponins x4 (2) Diabetes mellitus type 2 in obese Is this a current diagnosis for this admission?: Yes Summary: Hemoglobin A1c 9.0 patient received diabetes education is recommended that she have her regimen adjusted to minimize insulin other atherogenic drugs due to her early onset coronary disease. (3) Hypertension Is this a current diagnosis for this admission?: Yes Summary: Normotensive on current regimen (4) Coronary artery disease Is this a current diagnosis for this admission?: Yes Summary: Cardiac cath from May 2017 revealed a normal ejection fraction a 50% LAD a proximal 70% first diagonal and proximal 70% obtuse marginal. Stress test was negative. It was suspected patient may have had vasospasm during the first catheterization. She will follow-up with cardiology. She is been counseled on aggressive dietary and medical treatments for her coronary artery disease. Additionally strongly counseled on smoking cessation (5) Nicotine dependence Is this a current diagnosis for this admission?: Yes Summary: Up to 2 packs a day counseled that in light she discontinue smoking her coronary disease will accelerate given her young age this is a risk factor that she can maintain control of. - Additional Information Resuscitation Status: Full Code Discharge Diet: As Tolerated, Cardiac, Diabetic Discharge Activity: Activity As Tolerated, Balance Activity w/Rest Prescriptions: Amlodipine Besylate 2.5 mg PO DAILY #30 tab Atorvastatin Calcium [Lipitor 40 mg Tablet] 40 mg PO QHS #30 tablet Ranolazine [Ranexa 500 mg Tab.sr] 500 mg PO Q12 #60 tab.sr.12h Home Medications: Aspirin [Ecotrin 81 mg EC Tablet] 81 mg PO DAILY 04/10/18 Insulin Glargine,Hum.rec.anlog [Lantus Solostar] 12 units SQ DAILY 04/10/18 Loratadine [Claritin 10 mg Tablet] 10 mg PO DAILY 04/10/18 Sertraline HCl [Zoloft] 25 mg PO DAILY 04/10/18 Acetaminophen [Tylenol 325 mg Tablet] 650 mg PO Q4HP PRN tablet 04/12/18 Amlodipine Besylate 2.5 mg PO DAILY #30 tab 04/12/18 Atorvastatin Calcium [Lipitor 40 mg Tablet] 40 mg PO QHS #30 tablet 04/12/18 Famotidine [Pepcid 20 mg Tablet] 20 mg PO BID tablet 04/12/18 Metoprolol Tartrate [Lopressor 50 mg Tablet] 50 mg PO Q12 #60 04/12/18 Nicotine [Nicoderm 14 mg/24 Hr Transdermal Patch] 1 each TD DAILYP PRN patch.td24 04/12/18 Ranolazine [Ranexa 500 mg Tab.sr] 500 mg PO Q12 #60 tab.sr.12h 04/12/18 History of Present Illness Patient complains of: Chest pain History of Present Illness: ABRAHAM CROCKER is a 32 year old female with medical history of myocardial infarctions diagnosed May 2017 in [place] who comes to the emergency department complaining of chest pain. Patient tells me that she was sleeping and just woke up suddenly with severe nausea followed by left side chest pain radiated to the left shoulder "ache" in nature, 10/10 intensity, associated with numbness, tingling, sore, aching of both upper extremities. Took Pepcid but did not help well and she was feeling that it was hurting when she swallows. Complains of hands swelling, sweating, weakness, shaking, shortness of breath, dizziness. Denies vomiting, abdominal pain, diarrhea or urinary symptoms. Tells me that she feels similar when she had her heart attack last year. Tells me that she woke little distances as she feels tired easily Patient had a stress test in [place] July or August this year, as per her was inconclusive. Her last cardiac catheterization was May 2017 Hospital Course Hospital Course: She was admitted to a telemetry bed. Serial cardiac enzymes were negative x4. EKG remained normal throughout the hospital stay. Her pain was a deep dull with some sharp characteristics that was left-sided chest pain radiating to the shoulder. It never eased up the first 24 hours. It was suspected this was musculoskeletal or pleuritic. A CTA was performed which ruled out pulmonary embolism or other intrathoracic etiologies for her chest pain. Medical records from [place] were requested patient did have a cardiac catheterization in May 2017 that showed a normal ejection fraction. She had a non-STEMI RI with a troponin peak of 0.4 at that time. Her anatomy showed a 70% first diagonal 70% obtuse marginal and a 50% LAD. She was placed on Lipitor 80. She states that 1 of her doctors discontinued her statin because her cholesterol was too low. She was counseled that she needs the statin she was concerned about drug effects if she decided to get . She was counseled that given her multiple comorbid conditions she needs to plan a and not just get . And she would be high risk. Her cholesterol was poorly controlled due to the lack of drug therapy she was reinitiated on Lipitor 40. A nuclear stress test was performed which showed no inducible ischemia. Echocardiogram showed normal ejection fraction. Consultation with cardiology was obtained and it was recommended she follow-up with Dr. Bonilla post discharge. Ranexa was initiated as there was concern of possible vasospasm on the catheterization her beta-earle was decreased to 50 mg twice daily and amlodipine 2.5 mg daily was added. She was counseled on tobacco cessation as she is a heavy smoker and it is accelerating her disease process. Is also recommended she see an farm management agent to have her medical regimen minimize insulin and other pro-atherogenic drugs while maximizing her control. She did not have a primary care provider and a consultation with diabetes education as well as discharge planning was obtained prior to discharge. As her chest pain was noncardiac it was recommended she use Pepcid on an ongoing basis for reflux and if the pain in the shoulder continues then possible pleurisy or musculoskeletal cause could be treated with Aleve [id number]. Physical Exam Vital Signs: Temp Pulse Resp BP Pulse Ox 98.1 F 62 16 138/80 H 100 04/12/18 12:41 04/12/18 12:41 04/12/18 12:41 04/12/18 12:41 04/12/18 12:41 Intake & Output 04/11/18 04/12/18 04/13/18 06:59 06:59 06:59 Intake Total 1016 857 Output Total 1400 1450 Balance -384 -593 Weight 86.5 kg General appearance: PRESENT: no acute distress, well-developed, well-nourished Eye exam: PRESENT: conjunctiva pink, EOMI, PERRLA. ABSENT: scleral icterus Neck exam: ABSENT: carotid bruit, JVD, lymphadenopathy, thyromegaly Respiratory exam: PRESENT: clear to auscultation sh[place]ila. ABSENT: rales, rhonchi, wheezes Cardiovascular exam: PRESENT: RRR. ABSENT: diastolic murmur, rubs, systolic murmur GI/Abdominal exam: PRESENT: normal bowel sounds, soft. ABSENT: distended, guarding, mass, organolmegaly, rebound, tenderness Neurological exam: PRESENT: alert, awake, oriented to person, oriented to place , oriented to time, oriented to situation, CN II-XII grossly intact. ABSENT: altered, reflexes normal, abnormal gait, ataxia, motor sensory deficit, normal gait, aphasic, other Psychiatric exam: PRESENT: depressed, flat affect Results Laboratory Results: 04/12/18 05:35 04/12/18 05:35 04/12/18 04/12/18 05:35 05:35 WBC 10.2 RBC 5.15 Hgb 13.5 Hct 40.9 MCV 79 L MCH 26.2 L MCHC 33.1 RDW 14.8 H Plt Count 255 Seg Neutrophils % 70.2 Lymphocytes % 22.5 Monocytes % 4.7 Eosinophils % 2.0 Basophils % 0.6 Absolute Neutrophils 7.1 Absolute Lymphocytes 2.3 Absolute Monocytes 0.5 Absolute Eosinophils 0.2 Absolute Basophils 0.1 Sodium 136.4 L Potassium 5.1 H Chloride 100 Carbon Dioxide 26 Anion Gap 10 BUN 14 Creatinine 0.84 Est GFR ( Amer) > 60 Est GFR (Non-Af Amer) > 60 Glucose 169 H Calcium 9.6 Magnesium 1.8 04/10/18 04/10/18 04/10/18 07:59 13:40 19:15 Troponin I < 0.012 < 0.012 < 0.012 Impressions: Chest X-Ray 04/10/18 01:25 IMPRESSION: Clear lungs. Chest/Abdomen CTA 04/11/18 00:00 IMPRESSION: NORMAL CTA OF THE CHEST. NO PULMONARY EMBOLI. Qualifiers - * PATIENT BEING DISCHARGED WITH ANY OF THE FOLLOWING DIAGNOSIS: No Plan Time Spent: Greater than 30 Minutes
--- NOTE | 2018-04-12 19:42 | PDOC PROGRESS REPORT ---
Subjective Progress Note for:: 04/12/18 Subjective:: Patient seems to be doing better with gradual improvement. Patient continues with some chest pain but all her cardiac enzymes and EKGs were negative. Chest pain had musculoskeletal quality therefore patient underwent a nuclear stress testing. This procedure, risk benefits were discussed with the patient in detail. Patient denying any PND, orthopnea. Patient denied any sustained palpitations, dizziness, syncope, near syncope. Patient denying any fever chills. Patient denying any other significant discomfort. Patient is maintaining sinus rhythm. Review of systems: Rest review of systems negative. Medications: Medications have been reviewed. Reason For Visit: CHEST PAIN Physical Exam Vital Signs: Temp Pulse Resp BP Pulse Ox 98.1 F 62 16 138/80 H 100 04/12/18 12:41 04/12/18 12:41 04/12/18 12:41 04/12/18 12:41 04/12/18 12:41 Intake & Output 04/11/18 04/12/18 04/13/18 06:59 06:59 06:59 Intake Total 1016 857 Output Total 1400 1450 Balance -384 -593 Weight 86.5 kg Exam: GENERAL: well-nourished and in no acute distress. Alert and oriented x3 HEAD: Atraumatic, normocephalic. EYES: Pupils equal round and reactive to light, extraocular movements intact, sclera anicteric, conjunctiva are normal. ENT: TMs normal, nares patent, oropharynx clear without exudates. Moist mucous membranes. No oral ulcerations or bleeding gums noted NECK: supple without lymphadenopathy. Trachea is central. No cervical or axillary lymphadenopathy noted. Carotids are 2+, JVD WNL LUNGS: Respiration seems nonlabored, no significant accessory muscle action noted. Breath sounds clear to auscultation bilaterally and equal noted. No wheezes rales or rhonchi noted. No significant dullness noted on percussion. CHEST: Palpation of the chest wall shows positive significant chest wall tenderness. HEART: [place] [employer], No PSH, 1/6 FREDI aortic area, 1/6 estrada systolic murmur mitral area, no rubs, no gallops. ABDOMEN: Soft, no significant tenderness appreciated, normoactive bowel sounds. No guarding, no rebound. No rigidity noted . No masses appreciated. EXTREMITIES: Pedal pulses are 1-2+, no calf tenderness noted. No clubbing or cyanosis. negative pedal edema noted NEUROLOGICAL: Focused neurological exam showed no significant neurologic deficit. Normal speech, no focal weakness appreciated. PSYCH: Normal mood, normal affect. Judgment and insight within normal limits. SKIN: No significant ecchymosis, skin is noted to be warm. MUSCULOSKELETAL EXAM: No significant acute joint swelling noted. Results Laboratory Results: 04/12/18 05:35 04/12/18 05:35 04/12/18 04/12/18 05:35 05:35 WBC 10.2 RBC 5.15 Hgb 13.5 Hct 40.9 MCV 79 L MCH 26.2 L MCHC 33.1 RDW 14.8 H Plt Count 255 Seg Neutrophils % 70.2 Lymphocytes % 22.5 Monocytes % 4.7 Eosinophils % 2.0 Basophils % 0.6 Absolute Neutrophils 7.1 Absolute Lymphocytes 2.3 Absolute Monocytes 0.5 Absolute Eosinophils 0.2 Absolute Basophils 0.1 Sodium 136.4 L Potassium 5.1 H Chloride 100 Carbon Dioxide 26 Anion Gap 10 BUN 14 Creatinine 0.84 Est GFR ( Amer) > 60 Est GFR (Non-Af Amer) > 60 Glucose 169 H Calcium 9.6 Magnesium 1.8 04/10/18 04/10/18 04/10/18 07:59 13:40 19:15 Troponin I < 0.012 < 0.012 < 0.012 EKG Comments: Shows sinus rhythm without any sustained tachycardia or bradycardia. Impressions: Chest X-Ray 04/10/18 01:25 IMPRESSION: Clear lungs. Chest/Abdomen CTA 04/11/18 00:00 IMPRESSION: NORMAL CTA OF THE CHEST. NO PULMONARY EMBOLI. Assessment & Plan - Diagnosis (1) Chest pain Qualifiers: Chest pain type: unspecified Qualified Code(s): R07.9 - Chest pain, unspecified Is this a current diagnosis for this admission?: Yes (2) Dyslipidemia Is this a current diagnosis for this admission?: Yes (3) Coronary artery disease Qualifiers: Coronary Disease-Associated Artery/Lesion type: [place] artery [place] vs. transplanted heart: [place] heart Is this a current diagnosis for this admission?: Yes (4) Diabetes mellitus type 2 in obese Is this a current diagnosis for this admission?: Yes (5) Hypertension Qualifiers: Hypertension type: essential hypertension Qualified Code(s): I10 - Essential (primary) hypertension Is this a current diagnosis for this admission?: Yes (6) Nicotine dependence Qualifiers: Nicotine product type: cigarettes Is this a current diagnosis for this admission?: Yes - Notes Notes: Chest pain: Patient claims chest pain is improved. This was evaluated with a nuclear stress test. Nuclear stress test was negative for any significant areas of ischemia or any significant areas of scar. The nuclear stress test is felt to be relatively low risk. Patient informed that occasionally single- vessel disease and balanced ischemia could be missed. Patient advised aggressive risk factor modification and medical therapy. Patient informed that further evaluation may become necessary if symptoms worsens or there is a development of new symptoms indicative of angina or angina equivalent symptom. Dyslipidemia: We will start patient on statin therapy. Patient was actually started on Lipitor 40 mg p.o. nightly. CAD: Patient has been advised aggressive risk factor modification and medical management. Patient to report any worsening chest pain. Diabetes: This is being expertly managed by the hospitalist. Hypertension: Blood pressure goal is 135/85 or less in this young lady with diabetes and known CAD. Nicotine dependence: Patient has been advised to quit smoking. Obesity: Patient will benefit from weight loss and possible evaluation for sleep apnea syndrome if clinically indicated. - Time Time with patient: Greater than 35 minutes - Patient was seen multiple times. Total time exceeds 40 minutes. In the morning nuclear stress test procedure, risks benefits, alternatives were discussed. Patient seen during the stress test. Patient also seen after stress test when results were discussed with the patient in detail. Patient's questions were answered. Nuclear stress test results were discussed with the patient. Patient was informed that no definitive evidence of pharmacologic stress-induced ischemia noted. No definite fixed defects were noted. Patient informed that occasionally significant single vessel disease or balanced ischemia could be missed. However based on the current study results, would recommend aggressive risk factor modification and medical therapy. It may also be worthwhile to consider evaluation or empiric management of other causes of chest pain. Should no other cause be found and if persistent in having chest pain, then cardiac catheterization should be considered. Right now, recommendations are for aggressive risk factor modification and medical management. More than 50% of the time spent coordinating care, discussing management plans with involved caregivers. Management plans discussed with involved personnels. Medical decision making was of moderate to high complexity, patient's has multiple comorbidities. Medications reviewed and adjusted accordingly: Yes
[2018-04-13] MEDS ORDERED: AMLODIPINE BESYLATE 2.5 MG TABLET PO SCH (10:00)
== END 2018-04-12 14:47 | disposition home or self-care (01) ==
LOC: ER 00:42 → EH 04:37 → 5 06:19
PROVIDERS: ADMIT Internal Medicine; ATTEND Internal Medicine
DX: R07.89 Other chest pain (principal); E11.9 Type 2 diabetes mellitus without complications; I10 Essential (primary) hypertension; I25.10 Atherosclerotic heart disease of native coronary artery without angina pectoris; E66.9 Obesity, unspecified; F17.210 Nicotine dependence, cigarettes, uncomplicated; R20.0 Anesthesia of skin; R20.2 Paresthesia of skin; R11.0 Nausea; R53.83 Other fatigue; M79.89 Other specified soft tissue disorders; R61 Generalized hyperhidrosis; R06.02 Shortness of breath; R42 Dizziness and giddiness; K21.9 Gastro-esophageal reflux disease without esophagitis; F32.9 Major depressive disorder, single episode, unspecified; E78.5 Hyperlipidemia, unspecified; R47.81 Slurred speech; R40.0 Somnolence; F41.9 Anxiety disorder, unspecified; R05 Cough; I25.2 Old myocardial infarction; Z68.32 Body mass index [BMI] 32.0-32.9, adult; Z23 Encounter for immunization; Z82.49 Family history of ischemic heart disease and other diseases of the circulatory system; Z79.82 Long term (current) use of aspirin; Z79.4 Long term (current) use of insulin; Z90.49 Acquired absence of other specified parts of digestive tract
CPT/HCPCS: 93005 ×2; 96376; 99285; 96374; 96375; 36415 ×3; 82553; 82962 ×3; 83735 ×3; 84703; 85025 ×2; 85652; 86140; 80048; 80053; 81001; 84484; 80307; 83036 ×2; 80061 ×2; 93306; 93017; 71045; 78452; 71275; 90686; 93010 ×2; G0008; A9500; J2785; J1815 ×4; J2270 ×3; J1650 ×2; J2060; J3490 ×2; J0280; Q9969; 90471; G0378

== ENCOUNTER 2018-05-04 21:40 | Emergency (ER) | payer SELFPAY ==
--- NOTE | 2018-05-04 22:48 | ER Document Report ---
ED General - General Chief Complaint: Dizziness Stated Complaint: DIZZY, SHORT OF BREATH, Time Seen by Provider: 05/04/18 22:31 Notes: Is a 32-year-old female with a history of acute coronary syndrome/and STEMI, who was not stented, and who is noncompliant with her medications for hypertension hyper lipidemia with a strong family history of coronary disease who presents with abrupt onset of "blackness in my head started turning" 45 minutes prior to arrival while laying still in bed. She describes dizziness and vertigo like the world is spinning with some nausea. She also is having trouble with gait, and her sister reports she is been reliably falling to the right since she started walking 45 minutes ago. She has no unilateral weakness numbness tingling or speech deficits. She is not aware that she is ever had a stroke. No history of brain tumors, no recent major surgeries, no active bleeding. She seen at the [facility] but is not connected with a primary care physician. She is morbidly obese. TRAVEL OUTSIDE OF THE [place] IN LAST 30 DAYS: No - Related Data Allergies/Adverse Reactions: trazodone Allergy (Verified 05/04/18 23:01) Past Medical History - Social History Smoking Status: Current Every Day Smoker Smoking Education Provided: Yes - The patient ED visit today was directly related to their abuse of tobacco. Frequency of alcohol use: None Family History: CAD Patient has suicidal ideation: No Patient has homicidal ideation: No - Past Medical History Cardiac Medical History: Reports: Hx Heart Attack - May 2017, Hx Hypercholesterolemia, Hx Hypertension Endocrine Medical History: Reports: Hx Diabetes Mellitus Type 2 Renal/ Medical History: Denies: Hx Peritoneal Dialysis Psychiatric Medical History: Reports: Hx Depression, Hx Post Traumatic Stress Disorder Past Surgical History: Reports: Hx Cardiac Catheterization, Hx Cholecystectomy Review of Systems - Review of Systems Notes: REVIEW OF SYSTEMS GEN: Denies fever, chills, weight loss ENT: Denies sore throat, nasal discharge, ear pain EYES: Denies blurry vision, eye pain, discharge CV: Denies chest pain, palpitations, edema RESP: Denies cough, shortness of breath, wheezing GI: Denies abdominal pain, nausea, vomiting, diarrhea MSK: Denies joint pain/swelling, edema, SKIN: Denies rash, skin lesions LYMPH: Denies swollen glands/lymph nodes NEURO: Dizziness vertigo incoordination of gait and ataxia PSYCH: Denies depression, suicidal or homicidal ideation PHYSICAL EXAMINATION General: No acute distress, well-nourished Head: Atraumatic, normocephalic ENT: Mouth normal, oropharynx moist, no exudates or tonsillar enlargement Eyes: Conjunctiva normal, pupils equal, lids normal Neck: No JVD, supple, no guarding CVS: Normal rate, regular rhythm, no murmurs Resp: No resp distress, equal and normal breath sounds bilaterally GI: Nondistended, soft, no tenderness to palpation, no rebound or guarding Ext: No deformities, no edema, normal range of motion in upper and lower ext Back: No CVA or midline TTP Skin: No rash, warm Lymphatic: No lymphadeopathy noted Neuro: Awake, alert. Face symmetric. GCS 15. Rightward beating nystagmus on lateral gaze. Mild right dysmetria. Truncal and gait ataxia with reliable falling to the right. Drinks and sensation in bilateral upper and lower extremities is intact. Neglect, no aphasia no memory deficits. 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 Differential would include migraine, peripheral vertigo, however her ataxia is concerning in the setting of multiple cardiac risk factors. She is well within the window for TPA. Activated acute stroke with charge nurse, ordered CT/CTA, spoke with transfer center at [facility] at 10:45 PM. Initial stroke scale is 3. 05/04/18 23:[address] Frances from [facility], assuming no large vessel occlusion or bleed he agrees with the ministration of TPA. This was ordered, but will hold pending read of CT, coagulation factors, and a discussion with the patient. 11:10 PM I discussed with the patient at length, along with her sister, who incidentally has received TPA in the past for a stroke, and she is still not sure. We have time given that her last known normal was 1 hour and 13 minutes ago. Sooner the better so I will speak with them soon for decision. She was counseled on the risks and benefits of TPA. Awaiting call from radiology, and hospitalist from [facility] who will accept the patient to the ICU. My read of the CT shows no bleed, read of the CTA shows no large vessel occlusion. Formal read negative of CTA. Patient is receiving TPA and has signed a consent. Included 4% bleed, 2% . 05/04/18 23:36 05/05/18 00:26 Reassessed at 12:20 AM. Nursing notes that she had an episode of anxiety and shortness of breath typical for her, and I have given her 0.5 mg of Ativan dose. Reassessing her she is now calm with no respiratory distress or signs of allergy. TPA infusion is running, NIH stroke score is still 3 with the persistence of her dysmetria and nystagmus but I am unable to test her ataxia at this time. [facility] transport is 30 minutes out. - Vital Signs Vital signs: Temp Pulse Resp BP Pulse Ox 98.1 F 91 15 131/68 H 97 05/04/18 21:48 05/05/18 00:15 05/05/18 00:16 05/05/18 00:16 05/05/18 00:16 - Laboratory Result Diagrams: 05/04/18 22:22 05/04/18 22:22 Laboratory results interpreted by me: 05/04/18 05/04/18 05/04/18 22:22 22:22 23:03 WBC 13.2 H RDW 14.9 H Absolute Neutrophils 9.2 H Glucose 216 H POC Glucose 220 H AST 40 H Critical Care Note - Critical Care Note Total time excluding time spent on procedures (mins): 71 Comments: The above patient is critically ill. Not including procedures, but including direct re-evaluations, speaking with patient and/or consultants, interpreting results, and documenting, I spent the total amount of minute listed listed above on critical care time Discharge - Discharge Clinical Impression: Vertigo Stroke Qualifiers: CVA mechanism: other Qualified Code(s): I63.89 - Other cerebral infarction Condition: Critical Disposition: [facility]
[2018-05-04] MEDS ORDERED: ALTEPLASE INJ 100 MG VIAL IV ONE (22:49)
[2018-05-04] MEDS ORDERED: LABETALOL HCL INJ 20 MG/4 ML DISP.SYRIN IV ONE ×2 (22:49→23:00)
[2018-05-04 23:12] LABS: ABSOLUTE BASOPHILS # (AUTO) 0.1 10^3/uL (0.0-0.2); ABSOLUTE EOSINOPHILS # (AUTO) 0.2 10^3/uL (0.0-0.6); ABSOLUTE MONOCYTES (AUTO) 0.6 10^3/uL (0.1-1.4); ABSOLUTE NEUT (AUTO) 9.2 10^3/uL (1.7-8.2); BASOPHILS % (AUTO) 0.9 % (0-2); EOSINOPHILS % (AUTO) 1.6 % (0-6); HEMATOCRIT 40.9 % (36.0-47.0); HEMOGLOBIN 13.7 g/dL (12.0-15.5); MEAN CORPUSCULAR HGB CONC 33.5 g/dL (32.0-36.0); MEAN CORPUSCULAR VOLUME 81 fl (80-97); MONOCYTES % (AUTO) 4.4 % (3-13); PLATELET COUNT 299 10^3/uL (150-450); RED BLOOD COUNT 5.08 10^6/uL (3.72-5.28); RED CELL DISTRIBUTION WIDTH 14.9 % (11.5-14.0); SEGMENTED NEUTROPHILS % (AUTO) 70.1 % (42-78); TOTAL CELLS COUNTED % (AUTO) 100 %; WHITE BLOOD COUNT 13.2 10^3/uL (4.0-10.5)
[2018-05-04 23:13] LABS: INTERNATIONAL RATION (INR) 0.82; PROTHROMBIN TIME 11.7 SEC (11.4-15.4)
--- NOTE | 2018-05-04 23:15 | RADIOLOGY REPORT (SQ) ---
EXAM DESCRIPTION: XR CHEST 1 VIEW COMPLETED DATE/TME: 05/04/2018 00:00 CLINICAL HISTORY: 32 years Female r/o stroke COMPARISON: 04/10/2018 FINDINGS: The cardiomediastinal silhouette appears unremarkable. No consolidating infiltrates or pleural effusions. No pneumothorax. IMPRESSION: No acute abnormality is identified.
--- NOTE | 2018-05-04 23:18 | RADIOLOGY REPORT (SQ) ---
EXAM DESCRIPTION: CT NECK ANGIOGRAPHY WITHOUT THEN WITH IV CONTRAST COMPLETED DATE/TME: 05/04/2018 22:45 CLINICAL HISTORY: 32 years, Female, R cerebellar sx COMPARISON: None. TECHNIQUE: 349 Images stored on PACS. All CT scanners at this facility use dose modulation, iterative reconstruction, and/or weight based dosing when appropriate to reduce radiation dose to as low as reasonably achievable (ALARA). [facility]: Dose Right [facility]: CareDose [facility]: Dose Right [facility]: Teradose 4D [facility]: [employer] LIMITATIONS: None. FINDINGS: Axial images were obtained with coronal and sagittal MIPS reconstructions, performed on a dedicated workstation. The origins of the great vessels are widely patent. The left common carotid artery originates from the innominate. Visualized lung apices are unremarkable. The bilateral subclavian arteries are widely patent. The cervical portions of the vertebral arteries are widely patent bilaterally. The bilateral common carotid arteries are widely patent. The cervical portions of the internal carotid arteries are widely patent bilaterally. No CTA evidence for stenosis, vascular encasement, or displacement. Imaging was continued into the brain. The vertebral basilar system is unremarkable. The petrous portions of the internal carotid arteries are widely patent. The [place] of [place] appears intact. Surrounding soft tissues are unremarkable. IMPRESSION: Unremarkable CTA of the neck. TECHNICAL DOCUMENTATION: Quality ID # [id number]: Final reports with documentation of one or more dose reduction techniques (e.g., Automated exposure control, adjustment of the mA and/or kV according to patient size, use of iterative reconstruction technique) 2010 [employer]- All Rights Reserved
--- NOTE | 2018-05-04 23:20 | RADIOLOGY REPORT (SQ) ---
EXAM DESCRIPTION: CT HEAD WITHOUT IV CONTRAST COMPLETED DATE/TME: 05/04/2018 22:43 CLINICAL HISTORY: 32 years Female stroke, right cerebellar symptoms, acute onset vertigo COMPARISON: None. TECHNIQUE: Contiguous axial CT images obtained through the brain without IV contrast. This exam was performed according to our department optimization program which includes automated exposure control, adjustment of the mA and/or kv according to patient size and/or use of iterative reconstruction technique. FINDINGS: The ventricles and sulci are within normal limits for the patient's age. No midline shift or mass effect. No masses identified. No acute intracranial hemorrhage. No fluid or significant mucosal thickening in the visualized paranasal sinuses. No depressed calvarial fractures. IMPRESSION: No acute intracranial abnormality is identified. Dr. Kim was called and notified of the findings at 10:19 PM central time.
[2018-05-04 23:24] LABS: ALANINE AMINOTRANSFERASE 20 U/L (9-52); ALBUMIN 4.4 g/dL (3.5-5.0); ALKALINE PHOSPHATASE 110 U/L (38-126); ANION GAP 12 (5-19); ASPARTATE AMINO TRANSFERASE 40 U/L (14-36); BILIRUBIN,DIRECT 0.3 mg/dL (0.0-0.4); BILIRUBIN,TOTAL 0.3 mg/dL (0.2-1.3); BLOOD UREA NITROGEN 15 mg/dL (7-20); CALCIUM 9.2 mg/dL (8.4-10.2); CARBON DIOXIDE 29 mmol/L (22-30); CHLORIDE 101 mmol/L (98-107); CREATINE KINASE 37 U/L (30-135); GLUCOSE 216 mg/dL (75-110); POTASSIUM 4.8 mmol/L (3.6-5.0); SODIUM 142.4 mmol/L (137-145); TOTAL PROTEIN 7.6 g/dL (6.3-8.2)
[2018-05-04 23:35] LABS: CREATINE KINASE MB 0.33 ng/mL (<4.55)
[2018-05-04 23:36] LABS: TROPONIN I < 0.012 ng/mL
[2018-05-04] MEDS ORDERED: LORAZEPAM INJ 2 MG/1 ML VIAL IV ONE (23:51)
--- NOTE | 2018-05-05 00:15 | RADIOLOGY REPORT (SQ) ---
EXAM DESCRIPTION: CT HEAD ANGIOGRAPHY WITHOUT THEN WITH IV CONTRAST COMPLETED DATE/TME: 05/04/2018 22:45 CLINICAL HISTORY: 32 years, Female, R cerebellar sx COMPARISON: None. TECHNIQUE: 128 Images stored on PACS. All CT scanners at this facility use dose modulation, iterative reconstruction, and/or weight based dosing when appropriate to reduce radiation dose to as low as reasonably achievable (ALARA). [facility]: Dose Right [facility]: CareDose [facility]: Dose Right [facility]: Teradose 4D [facility]: Criers Podium LIMITATIONS: None. FINDINGS: The vertebral basilar system is unremarkable. Negative for basilar tip aneurysm. The petrous and remaining intracranial portions of the internal carotid arteries are widely patent. There is no CTA evidence for aneurysm or arteriovenous malformation. No CTA evidence for stenosis, vascular encasement, or displacement. [place] is intact and unremarkable IMPRESSION: Unremarkable CTA brain TECHNICAL DOCUMENTATION: Quality ID # 436: Final reports with documentation of one or more dose reduction techniques (e.g., Automated exposure control, adjustment of the mA and/or kV according to patient size, use of iterative reconstruction technique) 2010 [employer]- All Rights Reserved
[2018-05-05 01:00] VITALS: BP 118/73
--- NOTE | 2018-05-05 10:41 | EKG REPORT ---
SEVERITY:- NORMAL ECG - SINUS RHYTHM : Confirmed by: Frannie Bonilla 05-May-2018 10:40:43
== END 2018-05-05 01:16 | disposition short-term general hospital (02) ==
LOC: ER 21:40
DX: R42 Dizziness and giddiness (principal); I63.89 Other cerebral infarction; R06.02 Shortness of breath; F17.200 Nicotine dependence, unspecified, uncomplicated; E78.00 Pure hypercholesterolemia, unspecified; I10 Essential (primary) hypertension; E11.9 Type 2 diabetes mellitus without complications; I25.2 Old myocardial infarction; Z90.49 Acquired absence of other specified parts of digestive tract
CPT/HCPCS: 93005; 99291; 96374; 96375; 36415; 82553; 82962; 82550; 85025; 85610; 85730; 80053; 84484; 71045; 70450; 70496; 70498; 93010; J3490; J2997; J2060

== ENCOUNTER 2018-07-26 01:55 | Emergency (ER) | payer SELFPAY ==
[2018-07-26 02:22] VITALS: BP 157/84
--- NOTE | 2018-07-26 22:54 | EKG REPORT ---
SEVERITY:- NORMAL ECG - SINUS RHYTHM : Confirmed by: Frannie Bonilla 26-Jul-2018 22:53:31
== END 2018-07-26 04:55 | disposition left against medical advice (07) ==
LOC: ER 01:55
DX: Z53.21 Procedure and treatment not carried out due to patient leaving prior to being seen by health care provider (principal); R07.9 Chest pain, unspecified
CPT/HCPCS: 93005; 93010

== ENCOUNTER 2018-08-07 10:58 | Observation (INO) | payer SELFPAY ==
--- NOTE | 2018-08-07 11:50 | RADIOLOGY REPORT (SQ) ---
EXAM DESCRIPTION: CHEST SINGLE VIEW COMPLETED DATE/TIME: 08/07/2018 11:39 am REASON FOR STUDY: cp COMPARISON: 05/04/2018 EXAM PARAMETERS: NUMBER OF VIEWS: One view. TECHNIQUE: Single frontal radiographic view of the chest acquired. RADIATION DOSE: NA LIMITATIONS: None. FINDINGS: LUNGS AND PLEURA: No opacities, masses or pneumothorax. No pleural effusion. MEDIASTINUM AND HILAR STRUCTURES: No masses. Contour normal. HEART AND VASCULAR STRUCTURES: Heart normal in size. Normal vasculature. BONES: No acute findings. HARDWARE: None in the chest. OTHER: No other significant finding. IMPRESSION: 1. No significant interval changes since the previous examination dated 05/04/2018. No acute findings. TECHNICAL DOCUMENTATION: JOB ID: [id number] [employer]- All Rights Reserved Reading location - IP/workstation name: [email or web address]
--- NOTE | 2018-08-07 12:06 | ER Document Report ---
ED Medical Screen (RME) - General Chief Complaint: Chest Pain Stated Complaint: CHEST PAIN Time Seen by Provider: 08/07/18 12:01 Notes: Patient is a 32-year-old female with history of heart disease that presents to the emergency department for chief complaint of chest pain. Patient reports started around 3 AM this morning describes as a heaviness in her left chest and squeezing in nature, has had pain like this before, states she has had elevated troponins before, she took 4 baby aspirin at home this morning. ROS: Other than noted above, the 12 point review of systems was reviewed with the patient and were negative, all pertinent findings are included in the HPI. PHYSICAL EXAMINATION: Vital signs reviewed. GENERAL: Patient appears uncomfortable HEAD: Atraumatic, normocephalic. EYES: Pupils equal round extraocular movements intact, conjunctiva are normal. ENT: Nares patent NECK: Normal range of motion CV: Heart regular rate and rhythm LUNGS: No respiratory distress Musculoskeletal: Normal range of motion NEUROLOGICAL: Normal speech PSYCH: Normal mood, normal affect. MDM: Patient seen and examined for rapid initial assessment. Vital signs reviewed. A comprehensive ED assessment and evaluation of the patient, analysis of test results and completion of the medical decision making process will be conducted by additional ED providers. *Note is created using voice recognition software and may contain spelling, syntax or grammatical errors. TRAVEL OUTSIDE OF THE [place] IN LAST 30 DAYS: No - Related Data Allergies/Adverse Reactions: trazodone Allergy (Verified 05/04/18 23:01) Past Medical History - Social History Family history: Reviewed & Not Pertinent - Past Medical History Cardiac Medical History: Reports: Hx Heart Attack - May 2017, Hx Hypercholesterolemia, Hx Hypertension Endocrine Medical History: Reports: Hx Diabetes Mellitus Type 2 Renal/ Medical History: Denies: Hx Peritoneal Dialysis Psychiatric Medical History: Reports: Hx Depression, Hx Post Traumatic Stress Disorder Past Surgical History: Reports: Hx Cardiac Catheterization, Hx Cholecystectomy - Immunizations History of Influenza Vaccine for 03/2017 - 08/2017 Season: No Physical Exam - Vital signs Vitals: Temp Pulse Resp BP Pulse Ox 98.7 F 93 22 H 165/108 H 100 08/07/18 11:12 08/07/18 11:12 08/07/18 11:12 08/07/18 11:12 08/07/18 11:12 Course - Vital Signs Vital signs: Temp Pulse Resp BP Pulse Ox 98.7 F 93 22 H 165/108 H 100 08/07/18 11:12 08/07/18 11:12 08/07/18 11:12 08/07/18 11:12 08/07/18 11:12
[2018-08-07] MEDS ORDERED: MORPHINE SULFATE 10 MG/ML INJ IV ONE ×2 (12:07→16:28)
[2018-08-07] MEDS ORDERED: ONDANSETRON HCL INJ/PF 4 MG/2 ML SDV IV ONE (12:07)
[2018-08-07 14:50] LABS: ALANINE AMINOTRANSFERASE 16 U/L (9-52); ALBUMIN 3.3 g/dL (3.5-5.0); ALKALINE PHOSPHATASE 116 U/L (38-126); ANION GAP 8 (5-19); ASPARTATE AMINO TRANSFERASE 34 U/L (14-36); BILIRUBIN,DIRECT 0.4 mg/dL (0.0-0.4); BILIRUBIN,TOTAL 0.7 mg/dL (0.2-1.3); BLOOD UREA NITROGEN 23 mg/dL (7-20); CALCIUM 9.6 mg/dL (8.4-10.2); CARBON DIOXIDE 26 mmol/L (22-30); CHLORIDE 111 mmol/L (98-107); GLUCOSE 83 mg/dL (75-110); POTASSIUM 3.8 mmol/L (3.6-5.0); SODIUM 145.3 mmol/L (137-145); TOTAL PROTEIN 6.8 g/dL (6.3-8.2)
[2018-08-07 15:51] LABS: ABSOLUTE BASOPHILS # (AUTO) 0.1 10^3/uL (0.0-0.2); ABSOLUTE EOSINOPHILS # (AUTO) 0.1 10^3/uL (0.0-0.6); ABSOLUTE LYMPHOCYTES (AUTO) 3.2 10^3/uL (0.5-4.7); ABSOLUTE MONOCYTES (AUTO) 0.4 10^3/uL (0.1-1.4); ABSOLUTE NEUT (AUTO) 8.3 10^3/uL (1.7-8.2); EOSINOPHILS % (AUTO) 1.1 % (0-6); HEMATOCRIT 47.1 % (36.0-47.0); HEMOGLOBIN 15.9 g/dL (12.0-15.5); LYMPHOCYTES % (AUTO) 26.6 % (13-45); MEAN CORPUSCULAR HEMOGLOBIN 26.8 pg (27.0-33.4); MEAN CORPUSCULAR HGB CONC 33.6 g/dL (32.0-36.0); MEAN CORPUSCULAR VOLUME 80 fl (80-97); MONOCYTES % (AUTO) 3.1 % (3-13); PLATELET COUNT 302 10^3/uL (150-450); RED BLOOD COUNT 5.92 10^6/uL (3.72-5.28); RED CELL DISTRIBUTION WIDTH 14.4 % (11.5-14.0); SEGMENTED NEUTROPHILS % (AUTO) 68.2 % (42-78); TOTAL CELLS COUNTED % (AUTO) 100 %; WHITE BLOOD COUNT 12.1 10^3/uL (4.0-10.5)
[2018-08-07] MEDS ORDERED: NORMAL SALINE 1000 ML 1,000 ML IV ONE (16:24)
--- NOTE | 2018-08-07 17:04 | EKG REPORT ---
SEVERITY:- BORDERLINE ECG - SINUS RHYTHM BORDERLINE PROLONGED QT INTERVAL : Confirmed by: Pepito Hall MD 07-Aug-2018 17:04:13
--- NOTE | 2018-08-07 17:26 | RADIOLOGY REPORT (SQ) ---
EXAM DESCRIPTION: CT ABD/PELVIS NO ORAL OR IV COMPLETED DATE/TIME: 08/07/2018 5:03 pm REASON FOR STUDY: acute renal failure COMPARISON: None. TECHNIQUE: CT scan of the abdomen and pelvis performed without intravenous or oral contrast. Images reviewed with lung, soft tissue, and bone windows. Reconstructed coronal and sagittal MPR images revi ewed. All images stored on PACS. All CT scanners at this facility use dose modulation, iterative reconstruction, and/or weight based d osing when appropriate to reduce radiation dose to as low as reasonably achievable (ALARA). [facility]: Dose Right [facility]: CareDose [facility]: Dose Right [facility]: Teradose 4D [facility]: Smart Trigence RADIATION DOSE: CT Rad equipment meets quality standard of care and radiation dose reduction techniq ues were employed. CTDIvol: 13.6 mGy. DLP: 747 mGy-cm.mGy. LIMITATIONS: None. FINDINGS: LOWER CHEST: No significant findings. No nodules or infiltrates. NON-CONTRASTED LIVER, SPLEEN, ADRENALS: Evaluation limited by lack of IV contrast. No identified sign ificant masses. PANCREAS: No masses. No peripancreatic inflammatory changes. GALLBLADDER: Surgically absent. RIGHT KIDNEY AND URETER: No suspicious masses. Assessment limited by lack of IV contrast. No signif icant calcifications. No hydronephrosis or hydroureter. LEFT KIDNEY AND URETER: No suspicious masses. Assessment limited by lack of IV contrast. No signifi cant calcifications. No hydronephrosis or hydroureter. AORTA AND RETROPERITONEUM: No aneurysm. No retroperitoneal masses or adenopathy. BOWEL AND PERITONEAL CAVITY: No obvious masses or inflammatory changes. No free fluid. APPENDIX: Normal. PELVIS, BLADDER, AND ABDOMINAL WALL:No abnormal masses. No free fluid. Bladder normal. BONES: No significant findings. OTHER: No other significant finding. IMPRESSION: NO SIGNIFICANT OR ACUTE PROCESS IN THE ABDOMEN OR PELVIS. COMMENT: Quality ID # 436: Final reports with documentation of one or more dose reduction techniques (e.g., Automated exposure control, adjustment of the mA and/or kV according to patient size, use of iterative reconstruction technique) TECHNICAL DOCUMENTATION: JOB ID: [id number] [employer]- All Rights Reserved Reading location - IP/workstation name: [email or web address]
--- NOTE | 2018-08-07 17:48 | ER Document Report ---
ED General - General Chief Complaint: Chest Pain Stated Complaint: CHEST PAIN Time Seen by Provider: 08/07/18 12:01 Mode of Arrival: Ambulatory Information source: Patient Notes: This is a 32-year-old female with a history of PTSD, hypertension, diabetes, anxiety. Patient presents to the emergency room with decreased p.o. intake, weakness, dizziness. She does have some sharp chest pain which is worsened with movement. She denies any nausea or vomiting. She denies any abdominal pain. TRAVEL OUTSIDE OF THE [place] IN LAST 30 DAYS: No - HPI Onset: Last week Onset/Duration: Gradual Quality of pain: No pain Severity: None Pain Level: Denies Associated symptoms: Nausea, Weakness, Other - Decreased p.o. intake. denies: Fever Exacerbated by: Other - Patient does complain of chest wall pain with movement Relieved by: Denies Similar symptoms previously: Yes Recently seen / treated by doctor: No - Related Data Allergies/Adverse Reactions: trazodone Allergy (Verified 05/04/18 23:01) Past Medical History - General Information source: Patient - Social History Smoking Status: Current Every Day Smoker Cigarette use (# per day): Yes - 1 pack/day Chew tobacco use (# tins/day): No Frequency of alcohol use: None Drug Abuse: None Lives with: Family Family History: CAD Patient has suicidal ideation: No Patient has homicidal ideation: No - Past Medical History Cardiac Medical History: Reports: Hx Heart Attack - May 2017, Hx Hypercholesterolemia, Hx Hypertension Endocrine Medical History: Reports: Hx Diabetes Mellitus Type 2 Renal/ Medical History: Denies: Hx Peritoneal Dialysis Psychiatric Medical History: Reports: Hx Depression, Hx Post Traumatic Stress Disorder Past Surgical History: Reports: Hx Cardiac Catheterization, Hx Cholecystectomy Review of Systems - Review of Systems Constitutional: denies: Chills, Fever EENT: No symptoms reported Cardiovascular: Dizziness, Lightheaded, Other - Chest wall pain. denies: Chest pain, Palpitations Respiratory: Cough. denies: Short of breath Gastrointestinal: Nausea. denies: Abdomen distended, Abdominal pain, Vomiting Genitourinary: No symptoms reported Female Genitourinary: No symptoms reported Musculoskeletal: See HPI Skin: No symptoms reported Hematologic/Lymphatic: No symptoms reported Neurological/Psychological: No symptoms reported Physical Exam - Vital signs Vitals: Temp Pulse Resp BP Pulse Ox 98.7 F 93 22 H 165/108 H 100 08/07/18 11:12 08/07/18 11:12 08/07/18 11:12 08/07/18 11:12 08/07/18 11:12 Notes: Physical exam: GENERAL: This is a 32-year-old female who is alert and oriented x3, no acute dis tress HEAD: Atraumatic, normocephalic. EYES: Pupils equal round and reactive to light, extraocular movements intact, sclera anicteric, conjunctiva are normal. ENT: TMs normal, nares patent, oropharynx clear without exudates. Dry mucous membranes. NECK: Normal range of motion, supple without obvious mass or JVD. LUNGS: Breath sounds clear to auscultation bilaterally and equal. No wheezes rales or rhonchi. HEART: Regular rate and rhythm without murmurs, rubs or gallops. ABDOMEN: Soft, normoactive bowel sounds. No tenderness to palpation. No guarding, no rebound. No masses appreciated. EXTREMITIES: Normal range of motion, no pitting or edema. No clubbing or cyanosis. NEUROLOGICAL: Cranial nerves II through XII grossly intact. Normal speech, moving all extremities. PSYCH: Normal mood, normal affect. SKIN: Warm, Dry, normal turgor, no rashes or lesions noted. Course - Vital Signs Vital signs: Temp Pulse Resp BP Pulse Ox 98.7 F 93 22 H 165/108 H 100 08/07/18 11:12 08/07/18 11:12 08/07/18 11:12 08/07/18 11:12 08/07/18 11:12 - Laboratory Result Diagrams: 08/07/18 15:35 08/07/18 13:45 Laboratory results interpreted by me: 08/07/18 08/07/18 13:45 15:35 WBC 12.1 H RBC 5.92 H Hgb 15.9 H Hct 47.1 H MCH 26.8 L RDW 14.4 H Absolute Neutrophils 8.3 H Sodium 145.3 H Chloride 111 H BUN 23 H Creatinine 3.71 H Est GFR ( Amer) 17 L Est GFR (Non-Af Amer) 14 L Albumin 3.3 L - Diagnostic Test Radiology reviewed: Image reviewed, Reports reviewed - CT of the chest shows no hydronephrosis. X-ray shows no infiltrates - EKG Interpretation by Me Rate: Normal Rhythm: NSR - EKG shows normal sinus rhythm with a ventricular rate of 85, no acute ST-T wave changes Critical Care Note - Critical Care Note Total time excluding time spent on procedures (mins): 60 Discharge - Discharge Clinical Impression: Acute kidney injury, Dehydration Condition: Stable Admitting Provider: Hospitalist - Dr Mariano Unit Admitted: Telemetry
[2018-08-07] MEDS ORDERED: RINGERS SOLUTION,LACTATED 1,000 ML IV ONE (17:57)
[2018-08-07] MEDS ORDERED: ONDANSETRON HCL INJ/PF 4 MG/2 ML SDV IV PRN (18:21)
[2018-08-07] MEDS ORDERED: DEXTROSE 40% GEL 15 GM TUBE PO PRN ×2 (18:25)
[2018-08-07] MEDS ORDERED: DEXTROSE 50%-WATER 25 GM/50 ML DISP.SYRIN IV PRN ×2 (18:25)
[2018-08-07] MEDS ORDERED: GLUCAGON,HUMAN RECOMB 1 MG INJ IM PRN (18:25)
[2018-08-07] MEDS ORDERED: NORMAL SALINE 1000 ML 1,000 ML IV PRN (18:27)
--- NOTE | 2018-08-07 18:37 | PDOC H&P ---
History of Present Illness History of Present Illness: ABRAHAM CROCKER is a 32 year old female patient with past medical history of hypertension, hyperlipidemia, diabetes mellitus, and anxiety depression and PTSD presents with chief complaint of generalized weakness and chest pain. Patient recently moved from [place] to [place] and she does not have any primary care physician. She reported that she ran out of her diabetic medications. She describes the chest pain as sharp precipitated by deep breathing and not reproducible. Since patient has history of OR and also her mom and her aunt from heart attack in their early 50s patient's worked up with EKG and troponin. Her EKG is normal and her 2 sets of cardiac enzymes also negative. Her blood work is remarkable for acute kidney injury with creatinine of 3.71. Her creatinine was normal in April 2018. Past Medical History Cardiac Medical History: Reports: Myocardial Infarction - May 2017, Hyperlipidema, Hypertension Endocrine Medical History: Reports: Diabetes Mellitus Type 2 Psychiatric Medical History: Reports: Depression, Post Traumatic Stress Disorder Past Surgical History Past Surgical History: Reports: Cardiac Catheterization, Cholecystectomy Social History Lives with: Family Smoking Status: Current Every Day Smoker Frequency of Alcohol Use: None Hx Recreational Drug Use: No Hx Prescription Drug Abuse: No - Advance Directive Resuscitation Status: Full Code Family History Family History: CAD, DM, Hyperlipidemia, Hypertension, Other - CKD Parental Family History Reviewed: Yes Children Family History Reviewed: Yes Sibling(s) Family History Reviewed.: Yes Medication/Allergy Home Medications: Aspirin [Ecotrin 81 mg EC Tablet] 81 mg PO DAILY 04/10/18 Insulin Glargine,Hum.rec.anlog [Lantus Solostar] 12 units SQ DAILY 04/10/18 Loratadine [Claritin 10 mg Tablet] 10 mg PO DAILY 04/10/18 Sertraline HCl [Zoloft] 25 mg PO DAILY 04/10/18 Acetaminophen [Tylenol 325 mg Tablet] 650 mg PO Q4HP PRN tablet 04/12/18 Amlodipine Besylate 2.5 mg PO DAILY #30 tab 04/12/18 Atorvastatin Calcium [Lipitor 40 mg Tablet] 40 mg PO QHS #30 tablet 04/12/18 Famotidine [Pepcid 20 mg Tablet] 20 mg PO BID tablet 04/12/18 Metoprolol Tartrate [Lopressor 50 mg Tablet] 50 mg PO Q12 #60 04/12/18 Nicotine [Nicoderm 14 mg/24 Hr Transdermal Patch] 1 each TD DAILYP PRN patch.td24 04/12/18 Ranolazine [Ranexa 500 mg Tab.sr] 500 mg PO Q12 #60 tab.sr.12h 04/12/18 Allergies/Adverse Reactions: trazodone Allergy (Verified 05/04/18 23:01) Review of Systems Constitutional: PRESENT: as per HPI Eyes: PRESENT: as per HPI Cardiovascular: PRESENT: as per HPI Respiratory: PRESENT: as per HPI Gastrointestinal: PRESENT: as per HPI Genitourinary: PRESENT: as per HPI Neurological: PRESENT: as per HPI Physical Exam Vital Signs: Temp Pulse Resp BP Pulse Ox 98.7 F 93 22 H 165/108 H 100 08/07/18 11:12 08/07/18 11:12 08/07/18 11:12 08/07/18 11:12 08/07/18 11:12 Intake & Output 08/06/18 08/07/18 08/08/18 06:59 06:59 06:59 Weight 84.1 kg General appearance: PRESENT: no acute distress Head exam: PRESENT: atraumatic Eye exam: PRESENT: conjunctiva pink Mouth exam: PRESENT: moist Neck exam: ABSENT: carotid bruit, JVD, lymphadenopathy, thyromegaly Respiratory exam: PRESENT: clear to auscultation [place]. ABSENT: rales, rhonchi, wheezes Cardiovascular exam: PRESENT: RRR. ABSENT: diastolic murmur, rubs, systolic murmur GI/Abdominal exam: PRESENT: normal bowel sounds, soft. ABSENT: distended, guarding, mass, organolmegaly, rebound, tenderness Neurological exam: PRESENT: alert, awake, oriented to time, oriented to situation Results Laboratory Results: 08/07/18 15:35 08/07/18 13:45 08/07/18 08/07/18 08/07/18 12:44 12:44 12:44 WBC Cancelled RBC Cancelled Hgb Cancelled Hct Cancelled MCV Cancelled MCH Cancelled MCHC Cancelled RDW Cancelled Plt Count Cancelled Seg Neutrophils % Cancelled Lymphocytes % Cancelled Monocytes % Cancelled Eosinophils % Cancelled Basophils % Cancelled Absolute Neutrophils Cancelled Absolute Lymphocytes Cancelled Absolute Monocytes Cancelled Absolute Eosinophils Cancelled Absolute Basophils Cancelled Sodium Cancelled Potassium Cancelled Chloride Cancelled Carbon Dioxide Cancelled Anion Gap Cancelled BUN Cancelled Creatinine Cancelled Est GFR ( Amer) Cancelled Est GFR (Non-Af Amer) Cancelled Glucose Cancelled Calcium Cancelled Total Bilirubin Cancelled AST Cancelled ALT Cancelled Alkaline Phosphatase Cancelled Total Protein Cancelled Albumin Cancelled Serum HCG, Qual Cancelled 08/07/18 08/07/18 08/07/18 13:45 13:45 13:45 WBC Cancelled RBC Cancelled Hgb Cancelled Hct Cancelled MCV Cancelled MCH Cancelled MCHC Cancelled RDW Cancelled Plt Count Cancelled Seg Neutrophils % Cancelled Lymphocytes % Cancelled Monocytes % Cancelled Eosinophils % Cancelled Basophils % Cancelled Absolute Neutrophils Cancelled Absolute Lymphocytes Cancelled Absolute Monocytes Cancelled Absolute Eosinophils Cancelled Absolute Basophils Cancelled Sodium 145.3 H Potassium 3.8 Chloride 111 H Carbon Dioxide 26 Anion Gap 8 BUN 23 H Creatinine 3.71 H Est GFR ( Amer) 17 L Est GFR (Non-Af Amer) 14 L Glucose 83 Calcium 9.6 Total Bilirubin 0.7 AST 34 ALT 16 Alkaline Phosphatase 116 Total Protein 6.8 Albumin 3.3 L Serum HCG, Qual NEGATIVE 08/07/18 15:35 WBC 12.1 H RBC 5.92 H Hgb 15.9 H Hct 47.1 H MCV 80 MCH 26.8 L MCHC 33.6 RDW 14.4 H Plt Count 302 Seg Neutrophils % 68.2 Lymphocytes % 26.6 Monocytes % 3.1 Eosinophils % 1.1 Basophils % 1.0 Absolute Neutrophils 8.3 H Absolute Lymphocytes 3.2 Absolute Monocytes 0.4 Absolute Eosinophils 0.1 Absolute Basophils 0.1 Sodium Potassium Chloride Carbon Dioxide Anion Gap BUN Creatinine Est GFR ( Amer) Est GFR (Non-Af Amer) Glucose Calcium Total Bilirubin AST ALT Alkaline Phosphatase Total Protein Albumin Serum HCG, Qual 08/07/18 08/07/18 08/07/18 12:44 13:45 15:35 Troponin I Cancelled < 0.012 < 0.012 Impressions: Chest X-Ray 08/07/18 00:00 IMPRESSION: 1. No significant interval changes since the previous examination dated 05/04/2018. No acute findings. Abdomen/Pelvis CT 08/07/18 16:28 IMPRESSION: NO SIGNIFICANT OR ACUTE PROCESS IN THE ABDOMEN OR PELVIS. Assessment & Plan - Diagnosis (1) Acute kidney injury Is this a current diagnosis for this admission?: Yes Plan: CT scan of the abdomen and pelvis is negative for hydronephrosis and and hydroureter. We will hydrate her aggressively and will avoid nephrotoxic agents. (2) ATYPICAL CHEST PAIN Is this a current diagnosis for this admission?: Yes Plan: Chest pain precipitated by deep breathing. 2 sets of cardiac enzymes are negative her EKG is normal. (3) Diabetes mellitus Is this a current diagnosis for this admission?: Yes Plan: Patient has been started on glipizide and Lantus. And also she is on a sliding scale. (4) Hypertension Qualifiers: Hypertension type: essential hypertension Qualified Code(s): I10 - Essential (primary) hypertension Is this a current diagnosis for this admission?: Yes Plan: Continue home medication
[2018-08-07] MEDS: METOPROLOL TARTRATE 50 MG TABLET PO SCH (20:11)
[2018-08-07] MEDS: ENOXAPARIN SODIUM INJ 40 MG/0.4 ML DISP.SYRIN SUBCUT SCH (20:14)
[2018-08-07] MEDS: OXYCODONE-ACETAMINOPHEN 5-325 MG TABLET PO PRN (21:11)
[2018-08-07] MEDS: INSULIN LISPRO 100 UNIT/ML 3 ML VIAL SUBCUT SCH (21:55)
[2018-08-07] MEDS ORDERED: FAMOTIDINE 20 MG TABLET PO SCH ×2 (22:00)
[2018-08-07] MEDS ORDERED: INSULIN GLARGINE,HUM.REC.ANLOG 300 UNIT/3 ML INSULN.PEN SUBCUT SCH (22:00)
[2018-08-08] MEDS: OXYCODONE-ACETAMINOPHEN 5-325 MG TABLET PO PRN ×2 (03:13→10:47)
[2018-08-08] MEDS ORDERED: HYDROXYZINE HCL 2 MG/ML SYRUP 60 ML PO PRN (05:33)
[2018-08-08] MEDS ORDERED: HYDROXYZINE HCL 2 MG/ML SYRUP 60 ML ONE (05:59)
[2018-08-08] MEDS ORDERED: HYDROXYZINE HCL 10 MG TABLET PO PRN (06:20)
[2018-08-08 06:22] LABS: ANION GAP 8 (5-19); BLOOD UREA NITROGEN 11 mg/dL (7-20); CALCIUM 8.7 mg/dL (8.4-10.2); CARBON DIOXIDE 27 mmol/L (22-30); CHLORIDE 104 mmol/L (98-107); CHOLESTEROL 128.45 mg/dL (0-200); GLUCOSE 271 mg/dL (75-110); SODIUM 139.1 mmol/L (137-145); TRIGLYCERIDES 274 mg/dL (<150)
[2018-08-08 06:33] LABS: DIRECT LDL 74 mg/dL (<100)
[2018-08-08 06:45] LABS: APPEARANCE,URINE CLEAR; BILIRUBIN,URINE NEGATIVE (NEGATIVE); COLOR,URINE STRAW; GLUCOSE, URINE >=500 mg/dL (NEGATIVE); KETONES,URINE NEGATIVE (NEGATIVE); LEUKOCYTE ESTERASE,URINE NEGATIVE (NEGATIVE); NITRITE,URINE NEGATIVE (NEGATIVE); PROTEIN,URINE NEGATIVE (NEGATIVE); URINE SPECIFIC GRAVITY 1.011; UROBILINOGEN,URINE NEGATIVE mg/dL (<2.0)
[2018-08-08 06:59] LABS: URINE AMPHETAMINES SCREEN NEGATIVE; URINE BARBITURATES SCREEN NEGATIVE; URINE BENZODIAZEPINES SCREEN NEGATIVE; URINE COCAINE SCREEN NEGATIVE; URINE MARIJUANA (THC) SCREEN NEGATIVE; URINE METHADONE SCREEN NEGATIVE; URINE PHENCYCLIDINE SCREEN NEGATIVE
[2018-08-08 07:02] LABS: POTASSIUM 5.1 mmol/L (3.6-5.0); VLDL CHOLESTEROL 54.8 mg/dL (10-31)
[2018-08-08] MEDS ORDERED: GLIPIZIDE 5 MG TABLET PO SCH (08:00)
[2018-08-08] MEDS: INSULIN LISPRO 100 UNIT/ML 3 ML VIAL SUBCUT SCH (08:48)
[2018-08-08] MEDS ORDERED: LORAZEPAM INJ 2 MG/1 ML VIAL IV ONE (10:29)
[2018-08-08] MEDS: METOPROLOL TARTRATE 50 MG TABLET PO SCH (11:40)
[2018-08-08] MEDS: ENOXAPARIN SODIUM INJ 40 MG/0.4 ML DISP.SYRIN SUBCUT SCH (11:42)
[2018-08-08 13:03] VITALS: BP 127/67
[2018-08-09] MEDS ORDERED: POTASSIUM CHLORIDE 20 MEQ/50 ML RTU IV SCH (09:00)
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
== END 2018-08-08 13:16 | disposition home or self-care (01) ==
LOC: ER 10:58 → EH 18:32 → INTOOBSV 18:32
PROVIDERS: ADMIT Internal Medicine; ATTEND Internal Medicine
DX: R07.89 Other chest pain (principal); I25.10 Atherosclerotic heart disease of native coronary artery without angina pectoris; E11.9 Type 2 diabetes mellitus without complications; E66.9 Obesity, unspecified; Z91.14 Patient's other noncompliance with medication regimen; Z59.7 Insufficient social insurance and welfare support; F31.89 Other bipolar disorder; I25.2 Old myocardial infarction; F40.01 Agoraphobia with panic disorder; N17.9 Acute kidney failure, unspecified; I10 Essential (primary) hypertension; R53.1 Weakness; R42 Dizziness and giddiness; R05 Cough; E86.0 Dehydration; F17.210 Nicotine dependence, cigarettes, uncomplicated; Z82.49 Family history of ischemic heart disease and other diseases of the circulatory system; Z90.49 Acquired absence of other specified parts of digestive tract
CPT/HCPCS: 93005; 96376; 99291; 96361; 96374; 96375; 36415 ×2; 82962 ×2; 84703; 85025; 80048; 80053; 81001; 84484; 80307; 83036; 80061; 71045; 74176; 93010; J1815; J2270; J2060; J2405; J7030 ×2; J7120; G0378

== ENCOUNTER 2018-10-15 14:29 | Observation (INO) | payer SELFPAY ==
[2018-10-15] MEDS ORDERED: ASPIRIN 81 MG TABLET, CHEWABLE PO ONE (14:45)
--- NOTE | 2018-10-15 14:47 | ER Document Report ---
ED Medical Screen (RME) - General Chief Complaint: Chest Pain Stated Complaint: CHEST PAIN Time Seen by Provider: 10/15/18 14:44 Mode of Arrival: Wheelchair Information source: Patient Notes: 33-year-old female visited the ED for complaint of left chest pain going down the left arm. She states is been hurting for 2 days with a steady ache but when she tries to move she has cramping and squeezing to the left chest. She states it got worse during the night last night. She states that she had an MD in 2017 but they did not do any stents because her vessels to the left side of her heart were too small to put stents or balloons in. She does have a history of high blood pressure cholesterol diabetes type 2 as well as depression. She states she does continue to smoke a pack a day. Patient is alert oriented respirations regular and unlabored speaking in full sentences. I have greeted and performed a rapid initial assessment of this patient. A comprehensive ED assessment and evaluation of the patient, analysis of test results and completion of medical decision making process will be conducted by an additional ED providers. TRAVEL OUTSIDE OF THE [place] IN LAST 30 DAYS: No - Related Data Allergies/Adverse Reactions: trazodone Allergy (Verified 08/08/18 09:16) Past Medical History - Social History Family history: Reviewed & Not Pertinent - Past Medical History Cardiac Medical History: Reports: Hx Heart Attack - May 2017, Hx Hypercholesterolemia, Hx Hypertension Endocrine Medical History: Reports: Hx Diabetes Mellitus Type 2 Renal/ Medical History: Denies: Hx Peritoneal Dialysis Psychiatric Medical History: Reports: Hx Depression, Hx Post Traumatic Stress Disorder Past Surgical History: Reports: Hx Cardiac Catheterization, Hx Cholecystectomy - Immunizations History of Influenza Vaccine for 03/2017 - 08/2017 Season: No Physical Exam - Vital signs Vitals: Temp Pulse Resp BP Pulse Ox 98.3 F 81 22 H 159/80 H 99 10/15/18 14:38 10/15/18 14:38 10/15/18 14:38 10/15/18 14:38 10/15/18 14:38 Course - Vital Signs Vital signs: Temp Pulse Resp BP Pulse Ox 98.3 F 81 22 H 159/80 H 99 10/15/18 14:38 10/15/18 14:38 10/15/18 14:38 10/15/18 14:38 10/15/18 14:38
--- NOTE | 2018-10-15 15:13 | RADIOLOGY REPORT (SQ) ---
EXAM DESCRIPTION: CHEST 2 VIEWS COMPLETED DATE/TIME: 10/15/2018 3:03 pm REASON FOR STUDY: left chest pain COMPARISON: 08/07/2018 EXAM PARAMETERS: NUMBER OF VIEWS: two views TECHNIQUE: Digital Frontal and Lateral radiographic views of the chest acquired. RADIATION DOSE: NA LIMITATIONS: none FINDINGS: LUNGS AND PLEURA: No opacities, masses or pneumothorax. No pleural effusion. MEDIASTINUM AND HILAR STRUCTURES: No masses or contour abnormalities. HEART AND VASCULAR STRUCTURES: Heart normal size. No evidence for failure. BONES: No acute findings. HARDWARE: None in the chest. OTHER: No other significant finding. IMPRESSION: No acute abnormality of the lungs. TECHNICAL DOCUMENTATION: JOB ID: [id number] [employer]- All Rights Reserved Reading location - IP/workstation name: [email or web address]
[2018-10-15 15:35] LABS: ABSOLUTE BASOPHILS # (AUTO) 0.1 10^3/uL (0.0-0.2); ABSOLUTE EOSINOPHILS # (AUTO) 0.3 10^3/uL (0.0-0.6); ABSOLUTE LYMPHOCYTES (AUTO) 3.6 10^3/uL (0.5-4.7); ABSOLUTE MONOCYTES (AUTO) 0.6 10^3/uL (0.1-1.4); ABSOLUTE NEUT (AUTO) 6.4 10^3/uL (1.7-8.2); BASOPHILS % (AUTO) 0.6 % (0-2); HEMATOCRIT 40.2 % (36.0-47.0); HEMOGLOBIN 13.6 g/dL (12.0-15.5); LYMPHOCYTES % (AUTO) 32.8 % (13-45); MEAN CORPUSCULAR HEMOGLOBIN 27.3 pg (27.0-33.4); MEAN CORPUSCULAR HGB CONC 33.8 g/dL (32.0-36.0); MEAN CORPUSCULAR VOLUME 81 fl (80-97); MONOCYTES % (AUTO) 5.2 % (3-13); PLATELET COUNT 298 10^3/uL (150-450); RED BLOOD COUNT 4.98 10^6/uL (3.72-5.28); RED CELL DISTRIBUTION WIDTH 15.1 % (11.5-14.0); SEGMENTED NEUTROPHILS % (AUTO) 58.4 % (42-78); TOTAL CELLS COUNTED % (AUTO) 100 %
[2018-10-15 15:51] LABS: AMORPHOUS SEDIMENT,URINE TRACE /HPF; APPEARANCE,URINE CLEAR; BILIRUBIN,URINE NEGATIVE (NEGATIVE); COLOR,URINE STRAW; GLUCOSE, URINE >=500 mg/dL (NEGATIVE); KETONES,URINE NEGATIVE (NEGATIVE); LEUKOCYTE ESTERASE,URINE MODERATE (NEGATIVE); NITRITE,URINE NEGATIVE (NEGATIVE); PROTEIN,URINE NEGATIVE (NEGATIVE); URINE SPECIFIC GRAVITY 1.011; UROBILINOGEN,URINE NEGATIVE mg/dL (<2.0)
[2018-10-15 15:53] LABS: ALANINE AMINOTRANSFERASE 36 U/L (9-52); ALBUMIN 4.2 g/dL (3.5-5.0); ALKALINE PHOSPHATASE 119 U/L (38-126); ANION GAP 15 (5-19); ASPARTATE AMINO TRANSFERASE 25 U/L (14-36); BILIRUBIN,DIRECT 0.3 mg/dL (0.0-0.4); BILIRUBIN,TOTAL 0.3 mg/dL (0.2-1.3); BLOOD UREA NITROGEN 12 mg/dL (7-20); CALCIUM 9.3 mg/dL (8.4-10.2); CARBON DIOXIDE 26 mmol/L (22-30); CHLORIDE 101 mmol/L (98-107); CREATINE KINASE 29 U/L (30-135); GLUCOSE 318 mg/dL (75-110); LIPASE 149.2 U/L (23-300); POTASSIUM 4.5 mmol/L (3.6-5.0); SODIUM 142.1 mmol/L (137-145)
[2018-10-15 16:09] LABS: CREATINE KINASE MB < 0.22 ng/mL (<4.55); TROPONIN I < 0.012 ng/mL
--- NOTE | 2018-10-15 16:10 | EKG REPORT ---
SEVERITY:- BORDERLINE ECG - SINUS RHYTHM BORDERLINE PROLONGED QT INTERVAL : Confirmed by: Pepito Hall MD 15-Oct-2018 16:09:46
[2018-10-15] MEDS ORDERED: NITROGLYCERIN 0.4 MG/TAB 25 TAB/BOTTLE SL ONE (18:07)
[2018-10-15] MEDS ORDERED: CEFTRIAXONE 1 GM/D5W RTU 1 GM/50 ML RTUPB IV ONE (18:07)
--- NOTE | 2018-10-15 18:08 | ER Document Report ---
ED General - General Chief Complaint: Chest Pain Stated Complaint: CHEST PAIN Time Seen by Provider: 10/15/18 14:44 Mode of Arrival: Wheelchair Notes: 33-year-old female with history of myocardial infarction in 2017, diabetes, hypertension, who is a smoker presents to the emergency department for chest pain similar to her previous heart attack. States that the pain is substernal that radiates straight to her back and up and down her left neck and left arm. Has associated diaphoresis and nausea. No shortness of breath. No recent fevers, chills, vomiting, diarrhea. Patient complaining of symptoms consistent with previous UTIs no other complaints TRAVEL OUTSIDE OF THE [place] IN LAST 30 DAYS: No - Related Data Allergies/Adverse Reactions: trazodone Allergy (Verified 08/08/18 09:16) Past Medical History - General Information source: Patient - Social History Smoking Status: Current Every Day Smoker Family History: CAD, DM, Hyperlipidemia, Hypertension, Other - CKD Patient has suicidal ideation: No Patient has homicidal ideation: No - Past Medical History Cardiac Medical History: Reports: Hx Heart Attack - May 2017, Hx Hypercholesterolemia, Hx Hypertension Endocrine Medical History: Reports: Hx Diabetes Mellitus Type 2 Renal/ Medical History: Denies: Hx Peritoneal Dialysis Psychiatric Medical History: Reports: Hx Depression, Hx Post Traumatic Stress Disorder Past Surgical History: Reports: Hx Cardiac Catheterization, Hx Cholecystectomy Review of Systems - Review of Systems Constitutional: See HPI EENT: No symptoms reported Cardiovascular: See HPI Respiratory: See HPI Gastrointestinal: See HPI Genitourinary: See HPI Female Genitourinary: No symptoms reported Musculoskeletal: No symptoms reported Skin: No symptoms reported Hematologic/Lymphatic: No symptoms reported Neurological/Psychological: No symptoms reported Physical Exam - Vital signs Vitals: Temp Pulse Resp BP Pulse Ox 98.3 F 81 22 H 159/80 H 99 10/15/18 14:38 10/15/18 14:38 10/15/18 14:38 10/15/18 14:38 10/15/18 14:38 - Notes Notes: PHYSICAL EXAMINATION: Reviewed vital signs and charting by RN GENERAL: Alert, interacts well. In acute distress. HEAD: Normocephalic, atraumatic. EYES: Pupils equal and round. Extraocular movements intact. ENT: Oral mucosa moist, tongue midline. NECK: Full range of motion. Supple. Trachea midline. LUNGS: Clear to auscultation bilaterally, no wheezes, rales, or rhonchi. No respiratory distress. HEART: Regular rate and rhythm. No murmur ABDOMEN: soft, non-tender. Non-distended. Bowel sounds present. no McBurney's point tenderness, no Babin sign. EXTREMITIES: Moves all 4 extremities spontaneously. No edema, No cyanosis. Normal distal neurovascular exam NEUROLOGIC: Oriented and appropriate. Normal speech. PSYCH: Normal affect, normal mood. SKIN: Warm, dry, normal turgor. No rashes or lesions noted. Course - Re-evaluation Re-evalutation: 10/15/18 18:06 Patient with significant cardiac history. Pain consistent with previous RI. I initiated call to hospitalist and spoke with who accepted the patient for telemetry observation. I will initiate treatment for her UTI. I will initiate pain control. - Vital Signs Vital signs: Temp Pulse Resp BP Pulse Ox 98.3 F 81 18 142/74 H 96 10/15/18 14:38 10/15/18 14:38 10/15/18 19:02 10/15/18 19:02 10/15/18 19:02 - Laboratory Result Diagrams: 10/15/18 15:06 10/15/18 15:06 Laboratory results interpreted by me: 10/15/18 10/15/18 10/15/18 15:06 15:06 15:06 WBC 11.0 H RDW 15.1 H Glucose 318 H Creatine Kinase 29 L Urine Glucose (UA) >=500 H Ur Leukocyte Esterase MODERATE H Discharge - Discharge Clinical Impression: Chest pain Qualifiers: Chest pain type: unspecified Qualified Code(s): R07.9 - Chest pain, unspecified Condition: Stable Disposition: ADMITTED OBSERVATION Admitting Provider: Giovana (Hospitalist) Unit Admitted: Telemetry
--- NOTE | 2018-10-15 18:50 | PDOC H&P ---
History of Present Illness Admission Date/PCP: 10/15/18 18:15 History of Present Illness: ABRAHAM CROCKER is a 33 year old female past medical history of myocardial infarction in 2017 in [place] (had a left heart cath, was told she had 70% stenosis, intervention was done), TIA on 05/07/2018, diabetes type 2, hypertension, current smoker presenting to ED complaining of wrist pain for the last 2 days. Left-sided chest pain, aching nature, 8/10 on severity scale, radiating to left shoulder and back, constant for the last 2 days, worse with breathing and movement, better with staying still and resting. Been taking Tylenol and aspirin with no help. Also complaining of generalized fatigue, subjective fever, nausea, dysuria, cloudy urine, and urgency. Is denying any vomiting, shortness of breath, abdominal pain, diarrhea, constipation. In ED SBP 155, temperature 98.3, pulse 81, RR 17-24, SPO2 84 to 99% on room air. WBC 11, glucose 318, 100s less than 0.012, EKG no acute changes, chest x-ray no acute changes, UA moderate leukocyte esterase, WBC 34. This was consulted for admission. Past Medical History Cardiac Medical History: Reports: Myocardial Infarction - May 2017, Hyperlipidema, Hypertension Endocrine Medical History: Reports: Diabetes Mellitus Type 2 Psychiatric Medical History: Reports: Depression, Post Traumatic Stress Disorder Past Surgical History Past Surgical History: Reports: Cardiac Catheterization, Cholecystectomy Social History Smoking Status: Current Every Day Smoker Frequency of Alcohol Use: None Hx Recreational Drug Use: No Hx Prescription Drug Abuse: No Family History Family History: CAD, DM, Hyperlipidemia, Hypertension, Other - CKD Parental Family History Reviewed: Yes Children Family History Reviewed: Yes Sibling(s) Family History Reviewed.: Yes Medication/Allergy Home Medications: Aspirin [Adult Low Dose Aspirin EC] 81 mg PO DAILY 08/08/18 Atorvastatin Calcium [Lipitor 40 mg Tablet] 40 mg PO QHS 08/08/18 Famotidine [Pepcid 20 mg Tablet] 20 mg PO BID 08/08/18 Glipizide [Glucotrol 5 mg Tablet] 5 mg PO BID 08/08/18 Insulin Glargine,Hum.rec.anlog [Lantus Insulin 100 Unit/mL] 12 units SQ DAILY 08/08/18 Loratadine [Claritin 10 mg Tablet] 10 mg PO DAILY 08/08/18 Metoprolol Tartrate [Lopressor 50 mg Tablet] 75 mg PO Q12 08/08/18 Sertraline HCl [Zoloft] 25 mg PO DAILY 08/08/18 Allergies/Adverse Reactions: trazodone Allergy (Verified 08/08/18 09:16) Review of Systems Review of Systems: as per hpi Physical Exam Vital Signs: Temp Pulse Resp BP Pulse Ox 98.3 F 81 24 H 155/77 H 95 10/15/18 14:38 10/15/18 14:38 10/15/18 18:05 10/15/18 17:02 10/15/18 18:05 Intake & Output 10/14/18 10/15/18 10/16/18 06:59 06:59 06:59 Weight 87.2 kg General appearance: PRESENT: no acute distress, obese, well-developed, well-nourished Head exam: PRESENT: atraumatic, normocephalic Respiratory exam: PRESENT: clear to auscultation [place]. ABSENT: rales, rhonchi, wheezes Cardiovascular exam: PRESENT: RRR. ABSENT: diastolic murmur, rubs, systolic murmur GI/Abdominal exam: PRESENT: normal bowel sounds, soft. ABSENT: distended, guard ing, mass, organolmegaly, rebound, tenderness Extremities exam: PRESENT: full ROM. ABSENT: calf tenderness, clubbing, pedal edema Neurological exam: PRESENT: alert, awake, oriented to person, oriented to place, oriented to time, oriented to situation, CN II-XII grossly intact. ABSENT: motor sensory deficit Psychiatric exam: PRESENT: anxious Results Laboratory Results: 10/15/18 15:06 10/15/18 15:06 10/15/18 10/15/18 10/15/18 15:06 15:06 15:06 WBC 11.0 H RBC 4.98 Hgb 13.6 Hct 40.2 MCV 81 MCH 27.3 MCHC 33.8 RDW 15.1 H Plt Count 298 Seg Neutrophils % 58.4 Lymphocytes % 32.8 Monocytes % 5.2 Eosinophils % 3.0 Basophils % 0.6 Absolute Neutrophils 6.4 Absolute Lymphocytes 3.6 Absolute Monocytes 0.6 Absolute Eosinophils 0.3 Absolute Basophils 0.1 Sodium 142.1 Potassium 4.5 Chloride 101 Carbon Dioxide 26 Anion Gap 15 BUN 12 Creatinine 0.77 Est GFR ( Amer) > 60 Est GFR (Non-Af Amer) > 60 Glucose 318 H Calcium 9.3 Total Bilirubin 0.3 AST 25 ALT 36 Alkaline Phosphatase 119 Total Protein 7.0 Albumin 4.2 Lipase 149.2 Urine Color STRAW Urine Appearance CLEAR Urine pH 7.0 Ur Specific [place] 1.011 Urine Protein NEGATIVE Urine Glucose (UA) >=500 H Urine Ketones NEGATIVE Urine Blood NEGATIVE Urine Nitrite NEGATIVE Ur Leukocyte Esterase MODERATE H Urine WBC (Auto) 34 Urine RBC (Auto) 0 10/15/18 10/15/18 15:06 15:06 Creatine Kinase 29 L CK-MB (CK-2) < 0.22 Troponin I < 0.012 Impressions: Chest X-Ray 10/15/18 14:45 IMPRESSION: No acute abnormality of the lungs. Assessment and Plan - Diagnosis (1) Chest pain Qualifiers: Chest pain type: unspecified Qualified Code(s): R07.9 - Chest pain, unspecified Is this a current diagnosis for this admission?: Yes Plan: HEART Score 4 Admit to telemetry, antiplatelets, trend troponins, statins, beta-blockers, JUANY inhibitors, morphine, nitroglycerin sublingual. Stress test for risk stratification. (2) Coronary artery disease Qualifiers: Coronary Disease-Associated Artery/Lesion type: [place] artery [place] vs. transplanted heart: [place] heart Is this a current diagnosis for this admission?: No Plan: Antiplatelets, statins, JUANY, beta blockers. (3) Diabetes mellitus Is this a current diagnosis for this admission?: No Plan: Diabetic diet. Long-acting insulin, pre-meal insulin, adding scale insulin, adjust dosage as needed. (5) Hypertension Qualifiers: Hypertension type: essential hypertension Qualified Code(s): I10 - Essential (primary) hypertension Is this a current diagnosis for this admission?: No Plan: Restart home meds. Optimize blood pressure. Adjust dosage as needed. Follow- up with PCP. (6) Tobacco abuse Is this a current diagnosis for this admission?: No Plan: Advised on quitting. NicoDerm patch.
[2018-10-15] MEDS ORDERED: NITROGLYCERIN 0.4 MG/TAB 25 TAB/BOTTLE SL PRN (18:51)
[2018-10-15] MEDS ORDERED: HYDRALAZINE HCL INJ/PF 20 MG/1 ML SDV IV PRN (18:51)
[2018-10-15] MEDS ORDERED: GLUCAGON,HUMAN RECOMB 1 MG INJ SUBCUT PRN (18:54)
[2018-10-15] MEDS ORDERED: PROMETHAZINE HCL INJ 25 MG/1 ML VIAL IV PRN (18:54)
[2018-10-15] MEDS ORDERED: MAG HYDROX/AL HYDROX/SIMETH SUSP 30 ML UDCUP PO PRN (18:54)
[2018-10-15] MEDS ORDERED: ACETAMINOPHEN 325 MG TABLET PO PRN (18:54)
[2018-10-15] MEDS ORDERED: DEXTROSE 40% GEL 15 GM TUBE PO PRN ×4 (18:54→18:57)
[2018-10-15] MEDS ORDERED: DEXTROSE 50%-WATER 25 GM/50 ML DISP.SYRIN IV PRN ×4 (18:54→18:57)
[2018-10-15] MEDS ORDERED: IPRATROPIUM/ALBUTEROL 0.5-2.5 MG/3 ML AMPUL NEB PRN (18:54)
[2018-10-15] MEDS ORDERED: ONDANSETRON 4 MG TAB.RAPDIS PO PRN (18:54)
[2018-10-15] MEDS ORDERED: NORMAL SALINE 1000 ML 1,000 ML IV PRN (18:54)
[2018-10-15] MEDS ORDERED: GLUCAGON,HUMAN RECOMB 1 MG INJ IM PRN (18:57)
[2018-10-15] MEDS: MORPHINE SULFATE 10 MG/ML INJ IV PRN (20:10)
[2018-10-15] MEDS: METOPROLOL TARTRATE 50 MG TABLET PO SCH ×2 (22:13→22:34)
[2018-10-15] MEDS: FAMOTIDINE 20 MG TABLET PO SCH (22:14)
[2018-10-15] MEDS: ATORVASTATIN CALCIUM 40 MG TABLET PO SCH (22:14)
[2018-10-15] MEDS: HEPARIN SOD (PORCINE) 5,000 UNIT/ML 1 ML SYRINGE SUBCUT SCH (22:14)
[2018-10-15] MEDS: INSULIN LISPRO 100 UNIT/ML 3 ML VIAL SUBCUT SCH (22:15)
[2018-10-16] MEDS: MORPHINE SULFATE 10 MG/ML INJ IV PRN ×5 (00:18→19:40)
[2018-10-16 05:12] LABS: ABSOLUTE EOSINOPHILS # (AUTO) 0.2 10^3/uL (0.0-0.6); ABSOLUTE MONOCYTES (AUTO) 0.5 10^3/uL (0.1-1.4); ABSOLUTE NEUT (AUTO) 5.8 10^3/uL (1.7-8.2); BASOPHILS % (AUTO) 0.5 % (0-2); EOSINOPHILS % (AUTO) 2.3 % (0-6); HEMOGLOBIN 12.7 g/dL (12.0-15.5); LYMPHOCYTES % (AUTO) 31.3 % (13-45); MEAN CORPUSCULAR HEMOGLOBIN 26.9 pg (27.0-33.4); MEAN CORPUSCULAR HGB CONC 33.3 g/dL (32.0-36.0); MEAN CORPUSCULAR VOLUME 81 fl (80-97); MONOCYTES % (AUTO) 5.2 % (3-13); PLATELET COUNT 240 10^3/uL (150-450); RED BLOOD COUNT 4.71 10^6/uL (3.72-5.28); RED CELL DISTRIBUTION WIDTH 15.1 % (11.5-14.0); SEGMENTED NEUTROPHILS % (AUTO) 60.7 % (42-78); TOTAL CELLS COUNTED % (AUTO) 100 %; WHITE BLOOD COUNT 9.6 10^3/uL (4.0-10.5)
[2018-10-16] MEDS: HEPARIN SOD (PORCINE) 5,000 UNIT/ML 1 ML SYRINGE SUBCUT SCH ×3 (05:15→23:07)
[2018-10-16 05:31] LABS: ANION GAP 13 (5-19); BLOOD UREA NITROGEN 10 mg/dL (7-20); CALCIUM 9.1 mg/dL (8.4-10.2); CARBON DIOXIDE 24 mmol/L (22-30); CHLORIDE 103 mmol/L (98-107); CHOLESTEROL 142.73 mg/dL (0-200); GLUCOSE 205 mg/dL (75-110); POTASSIUM 4.5 mmol/L (3.6-5.0); SODIUM 139.5 mmol/L (137-145); TRIGLYCERIDES 222 mg/dL (<150)
[2018-10-16 05:42] LABS: DIRECT LDL 88 mg/dL (<100)
[2018-10-16 05:44] LABS: VLDL CHOLESTEROL 44.4 mg/dL (10-31)
--- NOTE | 2018-10-16 08:16 | EKG REPORT ---
SEVERITY:- BORDERLINE ECG - SINUS RHYTHM BORDERLINE PROLONGED QT INTERVAL : Confirmed by: Frannie Bonilla 16-Oct-2018 08:16:06
[2018-10-16] MEDS: DOCUSATE SODIUM 100 MG CAPSULE PO SCH (09:34)
[2018-10-16] MEDS: SERTRALINE HCL 50 MG TABLET PO SCH (09:35)
[2018-10-16] MEDS: FAMOTIDINE 20 MG TABLET PO SCH ×2 (09:35→23:07)
[2018-10-16] MEDS: ASPIRIN 81 MG TABLET, ENT COATED PO SCH (09:36)
[2018-10-16] MEDS: INSULIN LISPRO 100 UNIT/ML 3 ML VIAL SUBCUT SCH ×4 (09:36→23:06)
[2018-10-16 09:45] LABS: CREATINE KINASE MB < 0.22 ng/mL (<4.55); TROPONIN I < 0.012 ng/mL
[2018-10-16] MEDS: METOPROLOL TARTRATE 50 MG TABLET PO SCH ×2 (09:50→23:07)
[2018-10-16] MEDS ORDERED: LISINOPRIL 5 MG TABLET PO SCH (10:00)
[2018-10-16] MEDS ORDERED: CEFTRIAXONE 1 GM/D5W RTU 1 GM/50 ML RTUPB IV SCH (10:00)
[2018-10-16] MEDS: CEFTRIAXONE SODIUM 1,000 MG in DEXTROSE 5%-WATER 50 ML IV SCH (13:21)
--- NOTE | 2018-10-16 13:42 | PDOC PROGRESS REPORT ---
Subjective Progress Note for:: 10/16/18 Subjective:: 33 year old female past medical history of myocardial infarction in 2017 in [place] (had a left heart cath, was told she had 70% stenosis, intervention was done), TIA on 05/07/2018, diabetes type 2, hypertension, current smoker presenting to ED complaining of wrist pain for the last 2 days. Left-sided chest pain, aching nature, 8/10 on severity scale, radiating to left shoulder and back, constant for the last 2 days, worse with breathing and movement, better with staying still and resting. Been taking Tylenol and aspirin with no help. Also complaining of generalized fatigue, subjective fever, nausea, dysuria, cloudy urine, and urgency. Is denying any vomiting, shortness of breath, abdominal pain, diarrhea, constipation. In ED SBP 155, temperature 98.3, pulse 81, RR 17-24, SPO2 84 to 99% on room air. WBC 11, glucose 318, 100s less than 0.012, EKG no acute changes, chest x-ray no acute changes, UA moderate leukocyte esterase, WBC 34. This was consulted for admission. 10/16/[id number]-enrf-old female with history of coronary artery disease status post DC in 2017 status post left heart cath there as 70% stenosis of the one of the vessels, history of TIA in 2018, type 2 diabetes mellitus, hypertension, chronic smoker admitted for chest pains. Continued to have chest pains this morning. Troponins are negative.stress test was canceled because of continued chest pains. I spoke to Dr. Cronin in [facility] time he saw the patient in April 2018. As per him chest pains are most likely related to anxiety and psychiatric issues rather than a cardiac. He did not recommended stress test at that time. Patient was here in July for chest pains on supposed to follow-up with Dr. Cronin as an outpatient for stress test. She missed appointments. She is not competent to medications. And she does not have any cardiac catheter was done in [facility]. Last time she has cardiac cath was in [place]. Patient is still complaining of anxiety and chest pains. She also thinks most of her chest pain is due to anxiety. Reason For Visit: CHEST PAIN Physical Exam Vital Signs: Temp Pulse Resp BP Pulse Ox 97.9 F 70 16 151/84 H 100 10/16/18 11:17 10/16/18 11:17 10/16/18 11:17 10/16/18 11:17 10/16/18 11:17 Intake & Output 10/15/18 10/16/18 10/17/18 06:59 06:59 06:59 Intake Total 462 Balance 462 Weight 89.2 kg General appearance: PRESENT: no acute distress Head exam: PRESENT: atraumatic Eye exam: PRESENT: PERRLA Mouth exam: PRESENT: moist, tongue midline Neck exam: ABSENT: carotid bruit, JVD, lymphadenopathy, thyromegaly Respiratory exam: PRESENT: clear to auscultation shakila. ABSENT: rales, rhonchi, wheezes Cardiovascular exam: PRESENT: RRR. ABSENT: diastolic murmur, rubs, systolic murmur GI/Abdominal exam: PRESENT: normal bowel sounds, soft. ABSENT: distended, guarding, mass, organolmegaly, rebound, tenderness Rectal exam: PRESENT: deferred Neurological exam: PRESENT: alert, awake, oriented to person, oriented to place, oriented to time, oriented to situation, CN II-XII grossly intact. ABSENT: motor sensory deficit Psychiatric exam: PRESENT: appropriate affect, normal mood. ABSENT: homicidal i deation, suicidal ideation Skin exam: PRESENT: dry, intact, warm. ABSENT: cyanosis, rash Results Laboratory Results: 10/16/18 04:08 10/16/18 04:08 10/15/18 10/15/18 10/15/18 15:06 15:06 15:06 WBC 11.0 H RBC 4.98 Hgb 13.6 Hct 40.2 MCV 81 MCH 27.3 MCHC 33.8 RDW 15.1 H Plt Count 298 Seg Neutrophils % 58.4 Lymphocytes % 32.8 Monocytes % 5.2 Eosinophils % 3.0 Basophils % 0.6 Absolute Neutrophils 6.4 Absolute Lymphocytes 3.6 Absolute Monocytes 0.6 Absolute Eosinophils 0.3 Absolute Basophils 0.1 Sodium 142.1 Potassium 4.5 Chloride 101 Carbon Dioxide 26 Anion Gap 15 BUN 12 Creatinine 0.77 Est GFR ( Amer) > 60 Est GFR (Non-Af Amer) > 60 Glucose 318 H Calcium 9.3 Total Bilirubin 0.3 AST 25 ALT 36 Alkaline Phosphatase 119 Total Protein 7.0 Albumin 4.2 Triglycerides Cholesterol LDL Cholesterol Direct VLDL Cholesterol HDL Cholesterol Lipase 149.2 Urine Color STRAW Urine Appearance CLEAR Urine pH 7.0 Ur Specific [place] 1.011 Urine Protein NEGATIVE Urine Glucose (UA) >=500 H Urine Ketones NEGATIVE Urine Blood NEGATIVE Urine Nitrite NEGATIVE Ur Leukocyte Esterase MODERATE H Urine WBC (Auto) 34 Urine RBC (Auto) 0 10/16/18 10/16/18 04:08 04:08 WBC 9.6 RBC 4.71 Hgb 12.7 Hct 38.0 MCV 81 MCH 26.9 L MCHC 33.3 RDW 15.1 H Plt Count 240 Seg Neutrophils % 60.7 Lymphocytes % 31.3 Monocytes % 5.2 Eosinophils % 2.3 Basophils % 0.5 Absolute Neutrophils 5.8 Absolute Lymphocytes 3.0 Absolute Monocytes 0.5 Absolute Eosinophils 0.2 Absolute Basophils 0.0 Sodium 139.5 Potassium 4.5 Chloride 103 Carbon Dioxide 24 Anion Gap 13 BUN 10 Creatinine 0.69 Est GFR ( Amer) > 60 Est GFR (Non-Af Amer) > 60 Glucose 205 H Calcium 9.1 Total Bilirubin AST ALT Alkaline Phosphatase Total Protein Albumin Triglycerides 222 H Cholesterol 142.73 LDL Cholesterol Direct 88 VLDL Cholesterol 44.4 H HDL Cholesterol 38 L Lipase Urine Color Urine Appearance Urine pH Ur Specific [place] Urine Protein Urine Glucose (UA) Urine Ketones Urine Blood Urine Nitrite Ur Leukocyte Esterase Urine WBC (Auto) Urine RBC (Auto) 10/15/18 15:06 Clean Catch Midstream Urine Culture - Final Group B Beta Streptococcus 10/15/18 10/15/18 10/15/18 15:06 15:06 18:15 Creatine Kinase 29 L CK-MB (CK-2) < 0.22 Troponin I < 0.012 < 0.012 10/15/18 10/16/18 10/16/18 23:55 08:55 08:55 Creatine Kinase 22 L CK-MB (CK-2) < 0.22 Troponin I < 0.012 < 0.012 Impressions: Chest X-Ray 10/15/18 14:45 IMPRESSION: No acute abnormality of the lungs. Assessment and Plan - Diagnosis (1) Chest pain Qualifiers: Chest pain type: unspecified Qualified Code(s): R07.9 - Chest pain, unspecified Is this a current diagnosis for this admission?: Yes Plan: HEART Score 4 Admit to telemetry, antiplatelets, trend troponins, statins, beta-blockers, JUANY inhibitors, morphine, nitroglycerin sublingual. Stress test for risk stratification. 10/16/2018-stress test was canceled this morning because of the chest pains. Plan is to arrange for the stress test tomorrow if chest pain-free. In the meantime she is on beta-blockers, JUANY inhibitor nurse, morphine, nitroglycerin and troponin series. She is also on telemetry monitoring. Plan is to continue the present management. (2) Tobacco abuse Is this a current diagnosis for this admission?: No Plan: Advised on quitting. NicoDerm patch. 10/16/2018-patient is a chronic smoker and she was a nicotine patch smoking counseling was provided for more than 10 minutes strongly advised to quit smoking. (3) Diabetes mellitus Qualifiers: Diabetes mellitus type: type 2 Is this a current diagnosis for this admission?: No Plan: Diabetic diet. Long-acting insulin, pre-meal insulin, adding scale insulin, adjust dosage as needed. 10/16/2018-patient is an diabetic diet. On insulin sliding scale before meals and at bedtime. Today's blood sugar is 67 and hemoglobin A1c is 9.4. Dietary consult was requested. Presently on glipizide 5 mg p.o. twice daily, insulin sl iding scale. (4) Hypertension Qualifiers: Hypertension type: essential hypertension Qualified Code(s): I10 - Essential (primary) hypertension Is this a current diagnosis for this admission?: No Plan: Restart home meds. Optimize blood pressure. Adjust dosage as needed. Follow- up with PCP. 10/16/2018-patient has history of hypertension blood pressure today is 151/84. Patient is on lisinopril 2.5 mg p.o. daily, metoprolol 75 mg p.o. every 12 hours. To increase lisinopril to 10 mg p.o. daily. (5) Bipolar disorder with depression Is this a current diagnosis for this admission?: Yes Plan: 10/16/2018-patient has history of bipolar disorder with depression. She is also having anxiety attacks panic attacks during the hospital stay. Psych consult is going to be requested. - Time Time Spent with patient: 25-34 minutes Smoking Cessation Education: over 10 minutes Medications reviewed and adjusted accordingly: Yes Anticipated discharge: Home
[2018-10-16] MEDS: LORATADINE 10 MG TABLET PO SCH (15:36)
[2018-10-16] MEDS: NICOTINE 21 MG/24 HR PATCH.TD24 TD SCH (15:36)
[2018-10-16] MEDS: LISINOPRIL 5 MG TABLET PO SCH (16:46)
[2018-10-16] MEDS: GLIPIZIDE 5 MG TABLET PO SCH ×2 (16:46→19:37)
[2018-10-16] MEDS: ATORVASTATIN CALCIUM 40 MG TABLET PO SCH (23:07)
[2018-10-17] MEDS: MORPHINE SULFATE 10 MG/ML INJ IV PRN ×4 (00:58→14:36)
[2018-10-17] MEDS: HEPARIN SOD (PORCINE) 5,000 UNIT/ML 1 ML SYRINGE SUBCUT SCH ×3 (06:03→21:58)
[2018-10-17 07:12] LABS: ABSOLUTE EOSINOPHILS # (AUTO) 0.2 10^3/uL (0.0-0.6); ABSOLUTE LYMPHOCYTES (AUTO) 2.5 10^3/uL (0.5-4.7); ABSOLUTE MONOCYTES (AUTO) 0.4 10^3/uL (0.1-1.4); ABSOLUTE NEUT (AUTO) 5.1 10^3/uL (1.7-8.2); BASOPHILS % (AUTO) 0.3 % (0-2); EOSINOPHILS % (AUTO) 2.8 % (0-6); HEMATOCRIT 36.4 % (36.0-47.0); MEAN CORPUSCULAR HEMOGLOBIN 26.1 pg (27.0-33.4); MEAN CORPUSCULAR HGB CONC 32.9 g/dL (32.0-36.0); MEAN CORPUSCULAR VOLUME 80 fl (80-97); MONOCYTES % (AUTO) 5.3 % (3-13); PLATELET COUNT 230 10^3/uL (150-450); RED BLOOD COUNT 4.57 10^6/uL (3.72-5.28); SEGMENTED NEUTROPHILS % (AUTO) 61.6 % (42-78); TOTAL CELLS COUNTED % (AUTO) 100 %; WHITE BLOOD COUNT 8.3 10^3/uL (4.0-10.5)
[2018-10-17 07:36] LABS: ALANINE AMINOTRANSFERASE 33 U/L (9-52); ALBUMIN 3.5 g/dL (3.5-5.0); ALKALINE PHOSPHATASE 102 U/L (38-126); ANION GAP 12 (5-19); ASPARTATE AMINO TRANSFERASE 20 U/L (14-36); BILIRUBIN,DIRECT 0.2 mg/dL (0.0-0.4); BILIRUBIN,TOTAL 0.3 mg/dL (0.2-1.3); BLOOD UREA NITROGEN 11 mg/dL (7-20); CALCIUM 8.9 mg/dL (8.4-10.2); CARBON DIOXIDE 23 mmol/L (22-30); CHLORIDE 106 mmol/L (98-107); GLUCOSE 165 mg/dL (75-110); POTASSIUM 4.6 mmol/L (3.6-5.0); SODIUM 141.2 mmol/L (137-145); TOTAL PROTEIN 5.9 g/dL (6.3-8.2)
[2018-10-17] MEDS: INSULIN LISPRO 100 UNIT/ML 3 ML VIAL SUBCUT SCH ×4 (08:37→21:57)
[2018-10-17] MEDS: NICOTINE 21 MG/24 HR PATCH.TD24 TD SCH (10:26)
[2018-10-17] MEDS: FAMOTIDINE 20 MG TABLET PO SCH ×2 (10:26→21:57)
[2018-10-17] MEDS: DOCUSATE SODIUM 100 MG CAPSULE PO SCH (10:26)
[2018-10-17] MEDS: LORATADINE 10 MG TABLET PO SCH (10:26)
[2018-10-17] MEDS: ASPIRIN 81 MG TABLET, ENT COATED PO SCH (10:26)
[2018-10-17] MEDS: SERTRALINE HCL 50 MG TABLET PO SCH (10:30)
[2018-10-17] MEDS: CEFTRIAXONE SODIUM 1,000 MG in DEXTROSE 5%-WATER 50 ML IV SCH (10:33)
[2018-10-17] MEDS: GLIPIZIDE 5 MG TABLET PO SCH ×2 (10:33→17:44)
[2018-10-17] MEDS: METOPROLOL TARTRATE 50 MG TABLET PO SCH ×2 (11:39→21:57)
[2018-10-17] MEDS: LISINOPRIL 5 MG TABLET PO SCH (11:39)
[2018-10-17] MEDS ORDERED: REGADENOSON INJ 0.4 MG/5 ML DISP.SYRIN IV ONE (13:45)
[2018-10-17] MEDS ORDERED: AMINOPHYLLINE INJ/PF 250 MG/10 ML SDV IV ONE (13:45)
--- NOTE | 2018-10-17 15:07 | PDOC DISCHARGE SUMMARY ---
General - Admit/Disc Date/PCP Admission Date/Primary Care Provider: 10/15/18 18:15 Discharge Date: 10/17/18 - Discharge Diagnosis (1) Chest pain Is this a current diagnosis for this admission?: Yes Summary: 33-year-old female history of coronary artery disease according to her stent placement in [place] came to the emergency room with complaints of chest pain. Unable to do the stress test yesterday because of the continued chest pains and she had a stress test done today which was negative. Patient can go home today. No acute events during the hospital stay. (2) Tobacco abuse Is this a current diagnosis for this admission?: No Summary: 10/17/2018-patient is a chronic smoker smoking counseling was provided nicotine patch provided during the hospital stay patient is strongly advised not to smoke. (3) Diabetes mellitus Is this a current diagnosis for this admission?: No Summary: 10/17/2018-patient has history of type 2 diabetes mellitus hemoglobin is A1c is 9.6 diet exercise lifestyle modifications compliant medication was advised. Diet reconsult was done during the hospital stay. Blood sugar this morning is 104. Stable. (4) Hypertension Is this a current diagnosis for this admission?: No Summary: 10/17/2018-patient has history of hypertension blood pressure today is 108/64 stable. Patient advised about low-salt diet. Patient is going home today advised him to follow-up with primary care physician in 1 week time. (5) Bipolar disorder with depression Is this a current diagnosis for this admission?: Yes Summary: 10/17/2018-patient has history of bipolar disorder associated with anxiety and depression. No acute events during the hospital stay. Patient was strongly advised to follow-up with psychiatrist in 1 week time. Psych consult was requested here. - Additional Information Discharge Diet: Cardiac Discharge Activity: Activity As Tolerated Home Medications: Aspirin [Adult Low Dose Aspirin EC] 81 mg PO DAILY 08/08/18 Atorvastatin Calcium [Lipitor 40 mg Tablet] 40 mg PO QHS 08/08/18 Famotidine [Pepcid 20 mg Tablet] 20 mg PO BID 08/08/18 Glipizide [Glucotrol 5 mg Tablet] 5 mg PO BID 08/08/18 Loratadine [Claritin 10 mg Tablet] 10 mg PO DAILY 08/08/18 Metoprolol Tartrate [Lopressor 50 mg Tablet] 75 mg PO Q12 08/08/18 Sertraline HCl [Zoloft] 25 mg PO DAILY 08/08/18 History of Present Illness History of Present Illness: ABRAHAM CROCKER is a 33 year old female 33 year old female past medical history of myocardial infarction in 2017 in [place] (had a left heart cath, was told she had 70% stenosis, intervention was done), TIA on 05/07/2018, diabetes type 2, hypertension, current smoker presenting to ED complaining of wrist pain for the last 2 days. Left-sided chest pain, aching nature, 8/10 on severity scale, radiating to left shoulder and back, constant for the last 2 days, worse with breathing and movement, better with staying still and resting. Been taking Tylenol and aspirin with no help. Also complaining of generalized fatigue, subjective fever, nausea, dysuria, cloudy urine, and urgency. Is denying any vomiting, shortness of breath, abdominal pain, diarrhea, constipation. In ED SBP 155, temperature 98.3, pulse 81, RR 17-24, SPO2 84 to 99% on room air. WBC 11, glucose 318, 100s less than 0.012, EKG no acute changes, chest x-ray no acute changes, UA moderate leukocyte esterase, WBC 34. This was consulted for admission. Physical Exam Vital Signs: Temp Pulse Resp BP Pulse Ox 98.2 F 66 16 108/63 98 10/17/18 08:06 10/17/18 08:06 10/17/18 08:06 10/17/18 08:06 10/17/18 08:06 Intake & Output 10/16/18 10/17/18 10/18/18 06:59 06:59 06:59 Intake Total 462 286 800 Balance 462 286 800 Weight 89.2 kg 89.2 kg General appearance: PRESENT: no acute distress Head exam: PRESENT: atraumatic Eye exam: PRESENT: PERRLA Mouth exam: PRESENT: dry mucosa Neck exam: ABSENT: carotid bruit, JVD, lymphadenopathy, thyromegaly Respiratory exam: PRESENT: decreased breath sounds Cardiovascular exam: PRESENT: RRR. ABSENT: diastolic murmur, rubs, systolic murmur GI/Abdominal exam: PRESENT: normal bowel sounds, soft. ABSENT: distended, guarding, mass, organolmegaly, rebound, tenderness Rectal exam: PRESENT: deferred Neurological exam: PRESENT: alert, awake, oriented to person, oriented to place, oriented to time, oriented to situation, CN II-XII grossly intact. ABSENT: motor sensory deficit Psychiatric exam: PRESENT: appropriate affect, normal mood. ABSENT: homicidal ideation, suicidal ideation Results Laboratory Results: 10/17/18 06:00 10/17/18 06:00 10/17/18 10/17/18 06:00 06:00 WBC 8.3 RBC 4.57 Hgb 12.0 Hct 36.4 MCV 80 MCH 26.1 L MCHC 32.9 RDW 15.0 H Plt Count 230 Seg Neutrophils % 61.6 Lymphocytes % 30.0 Monocytes % 5.3 Eosinophils % 2.8 Basophils % 0.3 Absolute Neutrophils 5.1 Absolute Lymphocytes 2.5 Absolute Monocytes 0.4 Absolute Eosinophils 0.2 Absolute Basophils 0.0 Sodium 141.2 Potassium 4.6 Chloride 106 Carbon Dioxide 23 Anion Gap 12 BUN 11 Creatinine 0.65 Est GFR ( Amer) > 60 Est GFR (Non-Af Amer) > 60 Glucose 165 H Calcium 8.9 Magnesium 2.0 Total Bilirubin 0.3 AST 20 ALT 33 Alkaline Phosphatase 102 Total Protein 5.9 L Albumin 3.5 10/15/18 10/15/18 10/15/18 15:06 15:06 18:15 Creatine Kinase 29 L CK-MB (CK-2) < 0.22 Troponin I < 0.012 < 0.012 10/15/18 10/16/18 10/16/18 23:55 08:55 08:55 Creatine Kinase 22 L CK-MB (CK-2) < 0.22 Troponin I < 0.012 < 0.012 Impressions: Chest X-Ray 10/15/18 14:45 IMPRESSION: No acute abnormality of the lungs. Qualifiers - * PATIENT BEING DISCHARGED WITH ANY OF THE FOLLOWING DIAGNOSIS: No VTE patient discharged on overlapping Therapy?: No Plan Discharge Plan: Patient is discharged home today Time Spent: Greater than 30 Minutes
--- NOTE | 2018-10-17 19:16 | DRAGON STRESS TEST REPORT ---
Intravenous Lexiscan Cardiolite stress test using single photon emmision computerized tomography. Date of procedure: 10/17/2018. Ordering Provider: Dr. Akhtar. Patient's status: In Patient. Indication: Chest pain in a patient with a history of non-ST elevation CA in the past and history of coronary artery disease.. Coronary risk factors: Diabetes mellitus, hypertension, dyslipidemia, tobacco abuse disorder, and family history of coronary artery disease disease. Resting EKG: Sinus Rhythm. Within Normal Limits. Stress EKG: No changes of ischemia. The patient develops chest pressure and shortness of breath, without wheezing. There are no EKG changes. In spite of the patient drinking Pepsi she continued to have shortness of breath and chest pressure. Again there were no EKG changes and there were no wheezing on examination. The symptoms resolved after the patient was given 25 mg of Aminophyllin intravenously slowly. Note her blood pressure and heart rate were stable. Reason for termination: Protocol. Conclusions: Normal EKG and hemodynamic response to IV Lexiscan. Nuclear data: At rest the patient was given 13.93 millicuries of technetium 99m sestamibi injected intravenously. As per protocol rest non gated SPECT images were obtained. Subsequently the patient was given intravenous Lexiscan at a dose of 0.4 mg in 5 mL intravenously, followed by flush with normal saline. Subsequently the stress dose of 40.5 millicuries of technetium 99m sestamibi was injected intravenously. As per protocol stress gated images were obtained. Nuclear interpretation: Review of images showed that all segments of the myocardium had normal perfusion at rest, and normal perfusion post stress with IV Lexiscan. All segments of the myocardium had normal motion, contraction, and thickening by gated study. T. I D. ratio was normal at 1.15. There is no transient ischemic dilatation of the left ventricle. Computer read rest, and stress left ventricular ejection fraction were 63 %, and 64 %, respectively. Conclusion: 1. There is no scintigraphic evidence of Lexiscan induced myocardial ischemia. 2. There is no scintigraphic evidence of myocardial infarction/scar. Recommendations: Aggressive risk factor modification, and treating the underlying co- morbidities. MTDD
[2018-10-17] MEDS: LORAZEPAM INJ 2 MG/1 ML VIAL IV PRN (20:11)
[2018-10-17] MEDS: ATORVASTATIN CALCIUM 40 MG TABLET PO SCH (21:57)
[2018-10-18] MEDS: LORAZEPAM INJ 2 MG/1 ML VIAL IV PRN ×4 (02:39→18:12)
[2018-10-18] MEDS: HEPARIN SOD (PORCINE) 5,000 UNIT/ML 1 ML SYRINGE SUBCUT SCH ×2 (07:21→13:08)
[2018-10-18] MEDS: INSULIN LISPRO 100 UNIT/ML 3 ML VIAL SUBCUT SCH ×3 (08:47→18:15)
[2018-10-18 08:50] LABS: ABSOLUTE BASOPHILS # (AUTO) 0.1 10^3/uL (0.0-0.2); ABSOLUTE EOSINOPHILS # (AUTO) 0.2 10^3/uL (0.0-0.6); ABSOLUTE LYMPHOCYTES (AUTO) 2.6 10^3/uL (0.5-4.7); ABSOLUTE MONOCYTES (AUTO) 0.6 10^3/uL (0.1-1.4); ABSOLUTE NEUT (AUTO) 6.8 10^3/uL (1.7-8.2); BASOPHILS % (AUTO) 0.7 % (0-2); EOSINOPHILS % (AUTO) 2.3 % (0-6); HEMATOCRIT 37.6 % (36.0-47.0); HEMOGLOBIN 12.4 g/dL (12.0-15.5); LYMPHOCYTES % (AUTO) 25.6 % (13-45); MEAN CORPUSCULAR HEMOGLOBIN 26.2 pg (27.0-33.4); MEAN CORPUSCULAR HGB CONC 33.1 g/dL (32.0-36.0); MEAN CORPUSCULAR VOLUME 79 fl (80-97); MONOCYTES % (AUTO) 5.5 % (3-13); PLATELET COUNT 253 10^3/uL (150-450); RED BLOOD COUNT 4.74 10^6/uL (3.72-5.28); RED CELL DISTRIBUTION WIDTH 14.7 % (11.5-14.0); SEGMENTED NEUTROPHILS % (AUTO) 65.9 % (42-78); TOTAL CELLS COUNTED % (AUTO) 100 %; WHITE BLOOD COUNT 10.3 10^3/uL (4.0-10.5)
[2018-10-18 09:13] LABS: ANION GAP 13 (5-19); BLOOD UREA NITROGEN 12 mg/dL (7-20); CALCIUM 9.6 mg/dL (8.4-10.2); CARBON DIOXIDE 24 mmol/L (22-30); CHLORIDE 103 mmol/L (98-107); GLUCOSE 182 mg/dL (75-110); POTASSIUM 4.9 mmol/L (3.6-5.0); SODIUM 139.9 mmol/L (137-145)
[2018-10-18] MEDS: NICOTINE 21 MG/24 HR PATCH.TD24 TD SCH (09:18)
[2018-10-18] MEDS: METOPROLOL TARTRATE 50 MG TABLET PO SCH (09:19)
[2018-10-18] MEDS: LISINOPRIL 5 MG TABLET PO SCH (09:19)
[2018-10-18] MEDS: ASPIRIN 81 MG TABLET, ENT COATED PO SCH (09:20)
[2018-10-18] MEDS: SERTRALINE HCL 50 MG TABLET PO SCH (09:20)
[2018-10-18] MEDS: DOCUSATE SODIUM 100 MG CAPSULE PO SCH (09:20)
[2018-10-18] MEDS: FAMOTIDINE 20 MG TABLET PO SCH (09:20)
[2018-10-18] MEDS: LORATADINE 10 MG TABLET PO SCH (09:22)
[2018-10-18] MEDS: GLIPIZIDE 5 MG TABLET PO SCH ×2 (09:23→18:18)
[2018-10-18] MEDS: CEFTRIAXONE SODIUM 1,000 MG in DEXTROSE 5%-WATER 50 ML IV SCH (09:42)
--- NOTE | 2018-10-18 14:27 | Progress Note ---
Provider Note Provider Note: 10/18/2018-this is an addendum to the discharge summary done yesterday. Cortisol level came back around 27. Slightly above the normal range. Normal cortisol ranges 4.46 to 22.7. 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
[2018-10-18 18:24] VITALS: BP 134/83
== END 2018-10-18 18:46 | disposition home or self-care (01) ==
LOC: ER 14:29 → EH 18:15 → 5 20:06
PROVIDERS: ADMIT Internal Medicine; ATTEND Internal Medicine
DX: R07.9 Chest pain, unspecified (principal); I25.10 Atherosclerotic heart disease of native coronary artery without angina pectoris; F17.210 Nicotine dependence, cigarettes, uncomplicated; E11.9 Type 2 diabetes mellitus without complications; I10 Essential (primary) hypertension; F31.9 Bipolar disorder, unspecified; F41.9 Anxiety disorder, unspecified; E78.5 Hyperlipidemia, unspecified; R61 Generalized hyperhidrosis; R11.0 Nausea; N39.0 Urinary tract infection, site not specified; R53.83 Other fatigue; I25.2 Old myocardial infarction; Z95.5 Presence of coronary angioplasty implant and graft; Z79.899 Other long term (current) drug therapy; Z79.82 Long term (current) use of aspirin; Z86.73 Personal history of transient ischemic attack (TIA), and cerebral infarction without residual deficits; Z90.49 Acquired absence of other specified parts of digestive tract; Z82.49 Family history of ischemic heart disease and other diseases of the circulatory system; Z79.4 Long term (current) use of insulin; Z87.440 Personal history of urinary (tract) infections
CPT/HCPCS: 93005 ×2; 99285; 96365; 36415 ×4; 87040; 87086; 82553 ×2; 82962 ×4; 82550 ×2; 83690; 83735; 85025 ×4; 81025; 87088; 80048 ×2; 80053 ×2; 81001; 84484 ×2; 82533; 83036 ×2; 80061; 93017; 71046; 78452; 93010 ×2; G0378 ×4; A9500; J2785; J1644 ×3; J1815 ×4; J2270 ×3; J2060 ×2; J0696 ×4; J0280; Q9969; J7060

== ENCOUNTER 2018-11-05 11:10 | Emergency (ER) | payer SELFPAY ==
[2018-11-05 12:12] LABS: ABSOLUTE BASOPHILS # (AUTO) 0.1 10^3/uL (0.0-0.2); ABSOLUTE EOSINOPHILS # (AUTO) 0.3 10^3/uL (0.0-0.6); ABSOLUTE LYMPHOCYTES (AUTO) 3.4 10^3/uL (0.5-4.7); ABSOLUTE MONOCYTES (AUTO) 0.9 10^3/uL (0.1-1.4); ABSOLUTE NEUT (AUTO) 10.5 10^3/uL (1.7-8.2); BASOPHILS % (AUTO) 0.4 % (0-2); EOSINOPHILS % (AUTO) 1.8 % (0-6); HEMATOCRIT 39.2 % (36.0-47.0); HEMOGLOBIN 12.9 g/dL (12.0-15.5); LYMPHOCYTES % (AUTO) 22.5 % (13-45); MEAN CORPUSCULAR HEMOGLOBIN 26.7 pg (27.0-33.4); MEAN CORPUSCULAR HGB CONC 32.8 g/dL (32.0-36.0); MEAN CORPUSCULAR VOLUME 81 fl (80-97); PLATELET COUNT 254 10^3/uL (150-450); RED BLOOD COUNT 4.82 10^6/uL (3.72-5.28); RED CELL DISTRIBUTION WIDTH 15.5 % (11.5-14.0); SEGMENTED NEUTROPHILS % (AUTO) 69.3 % (42-78); TOTAL CELLS COUNTED % (AUTO) 100 %; WHITE BLOOD COUNT 15.1 10^3/uL (4.0-10.5)
--- NOTE | 2018-11-05 12:35 | ER Document Report ---
ED General - General Chief Complaint: Chest Pain Stated Complaint: CHEST PAIN Time Seen by Provider: 11/05/18 11:46 Primary Care Provider: [facility] [Primary Care Provider] - Follow up as needed Notes: 33 year old female past medical history of myocardial infarction in 2016 in [place] (had a left heart cath, was told she had 70% stenosis, intervention was done), TIA on 05/07/2018, diabetes type 2, hypertension, current smoker presenting to ED complaining of chest pain since this afternoon. She describes it as "exactly like my heart attack". She states that it is hard to breathe, has nausea, her hands are clammy. She states the severe pain comes in waves but is constant, described as stabbing/squeezing. It is in her left chest and radiates through to her back. She took a baby aspirin this morning and some extra strength Tylenol but it did not help. TRAVEL OUTSIDE OF THE [place] IN LAST 30 DAYS: No - Related Data Allergies/Adverse Reactions: trazodone Allergy (Verified 11/05/18 11:14) Past Medical History - Social History Smoking Status: Current Every Day Smoker Frequency of alcohol use: None Drug Abuse: None Family History: CAD, DM, Hyperlipidemia, Hypertension, Other - CKD Patient has suicidal ideation: No Patient has homicidal ideation: No - Past Medical History Cardiac Medical History: Reports: Hx Heart Attack - May 2017, Hx Hypercholesterolemia, Hx Hypertension Endocrine Medical History: Reports: Hx Diabetes Mellitus Type 2 Renal/ Medical History: Denies: Hx Peritoneal Dialysis Psychiatric Medical History: Reports: Hx Depression, Hx Post Traumatic Stress Disorder Past Surgical History: Reports: Hx Breast Surgery - R breast duct excision, Hx Cardiac Catheterization, Hx Cholecystectomy Review of Systems - Review of Systems Constitutional: See HPI EENT: No symptoms reported Cardiovascular: See HPI Respiratory: See HPI Gastrointestinal: See HPI Genitourinary: See HPI Female Genitourinary: No symptoms reported Musculoskeletal: See HPI Skin: No symptoms reported Hematologic/Lymphatic: No symptoms reported Neurological/Psychological: No symptoms reported Physical Exam - Vital signs Vitals: Temp Pulse Resp BP Pulse Ox 98.3 F 83 16 153/74 H 100 11/05/18 11:22 11/05/18 11:22 11/05/18 11:22 11/05/18 11:22 11/05/18 11:22 - Notes Notes: PHYSICAL EXAMINATION: Reviewed vital signs and charting by RN GENERAL: Well-appearing, well-nourished and in no acute distress. HEAD: Atraumatic, normocephalic. No scalp deformity, depression, or crepitance. LUNGS: Breath sounds present, equal, and clear to auscultation bilaterally. No wheezes, rales, or rhonchi. HEART: Regular rate and rhythm without murmurs, rubs, or gallops. 2+ peripheral pulses. Normal capillary refill. ABDOMEN: Soft, suprapubic tenderness, nondistended. Normoactive bowel sounds. No guarding, no rebound. No masses appreciated. BACK: Normal contour, no midline tenderness. Rectal exam deferred. PELVC: Deferred. EXTREMITIES: Normal range of motion, no pitting or edema. No cyanosis. PSYCH: Normal mood, normal affect. No suicidal thoughts/ideations. No homocidal thoughts/ideations. No hallucinations. SKIN: Warm, dry, normal turgor, no rashes or lesions noted. Course - Re-evaluation Re-evalutation: 11/05/18 12:39 Overall well-appearing. Patient with a negative Cardiolite stress test on 10/15/2018. Presenting with similar symptoms. Basic chest pain work-up initiated. 11/05/18 17:19 Patient with 2 negative troponins. HEART Score 2 for risk factors. I have low suspicion at this time because patient had a negative stress test 3 weeks ago and admits that anxiety may be playing a part to her symptoms. At this time I am comfortable discharging her with close follow-up with her primary care doctor. Chest x-ray was negative for widened mediastinum, I have very low suspicion for aortic dissection, aortic aneurysm, PE, pneumothorax. I understand patient has a significant history but she has presented here previously with similar symptoms and with the recent negative stress test I am comfortable with close follow-up with her primary doctor. Vital signs have been stable throughout her course and currently within normal limits. Patient currently chest pain-free. 11/05/18 17:23 - Vital Signs Vital signs: Temp Pulse Resp BP Pulse Ox 98.3 F 83 17 154/75 H 99 11/05/18 11:22 11/05/18 11:22 11/05/18 15:01 11/05/18 15:01 11/05/18 15:01 - Laboratory Result Diagrams: 11/05/18 11:49 11/05/18 11:49 Laboratory results interpreted by me: 11/05/18 11/05/18 11/05/18 11:49 11:49 11:49 WBC 15.1 H MCH 26.7 L RDW 15.5 H Absolute Neutrophils 10.5 H Sodium 136.5 L Glucose 335 H Lipase Urine Glucose (UA) >=500 H 11/05/18 12:56 WBC MCH RDW Absolute Neutrophils Sodium Glucose Lipase 335.0 H Urine Glucose (UA) Discharge - Discharge Clinical Impression: Chest pain Qualifiers: Chest pain type: unspecified Qualified Code(s): R07.9 - Chest pain, unspecified Condition: Good Disposition: HOME, SELF-CARE Additional Instructions: You were seen today for chest pain. The exact cause of your pain is unclear. However, based on your cardiac enzyme testing, chest x-ray, and EKG it does not appear that it is from an immediately life-threatening cause at this time. Although your testing here is normal is critical that you follow-up with your primary care physician for continued evaluation of this chest pain and possible stress testing. I recommended you see your physician within the next 24-48 hours to be evaluated for consideration of a stress test. Please return to emergency department immediately if you have worsening of your chest pain, shortness of breath, vomiting, become unable to exert yourself due to pain or difficulty breathing, you pass out, or have any pain that radiates into your arms, jaw, or back. Please also return if you have any additional symptoms that are concerning to you. Referrals: [facility] [Primary Care Provider] - Follow up as needed
[2018-11-05 12:36] LABS: ALANINE AMINOTRANSFERASE 30 U/L (9-52); ALBUMIN 4.1 g/dL (3.5-5.0); ALKALINE PHOSPHATASE 106 U/L (38-126); ANION GAP 14 (5-19); ASPARTATE AMINO TRANSFERASE 15 U/L (14-36); BILIRUBIN,DIRECT 0.2 mg/dL (0.0-0.4); BILIRUBIN,TOTAL 0.2 mg/dL (0.2-1.3); BLOOD UREA NITROGEN 13 mg/dL (7-20); CALCIUM 9.7 mg/dL (8.4-10.2); CARBON DIOXIDE 23 mmol/L (22-30); CHLORIDE 100 mmol/L (98-107); GLUCOSE 335 mg/dL (75-110); SODIUM 136.5 mmol/L (137-145); TOTAL PROTEIN 6.8 g/dL (6.3-8.2)
--- NOTE | 2018-11-05 13:02 | RADIOLOGY REPORT (SQ) ---
EXAM DESCRIPTION: CHEST SINGLE VIEW COMPLETED DATE/TIME: 11/05/2018 12:48 pm REASON FOR STUDY: chest pain COMPARISON: 10/15/2018 TECHNIQUE: Single frontal radiographic view of the chest acquired. NUMBER OF VIEWS: One view. LIMITATIONS: None. FINDINGS: LUNGS AND PLEURA: No pneumothorax. No consolidation or pleural effusion. MEDIASTINUM AND HILAR STRUCTURES: Stable. HEART AND VASCULAR STRUCTURES: Stable. BONES: No acute findings. HARDWARE: None in the chest. OTHER: No other significant finding. IMPRESSION: NO ACUTE FINDINGS. TECHNICAL DOCUMENTATION: JOB ID: [id number] [employer]- All Rights Reserved Reading location - IP/workstation name: [email or web address]
[2018-11-05 13:10] LABS: APPEARANCE,URINE SLIGHTLY-CLOUDY; BILIRUBIN,URINE NEGATIVE (NEGATIVE); COLOR,URINE STRAW; GLUCOSE, URINE >=500 mg/dL (NEGATIVE); KETONES,URINE NEGATIVE (NEGATIVE); LEUKOCYTE ESTERASE,URINE NEGATIVE (NEGATIVE); NITRITE,URINE NEGATIVE (NEGATIVE); PROTEIN,URINE NEGATIVE (NEGATIVE); URINE SPECIFIC GRAVITY 1.016; UROBILINOGEN,URINE NEGATIVE mg/dL (<2.0)
[2018-11-05] MEDS ORDERED: KETOROLAC TROMETHAMINE INJ/PF 30 MG/1 ML SDV IV ONE (14:00)
[2018-11-05] MEDS ORDERED: ONDANSETRON HCL INJ/PF 4 MG/2 ML SDV IV ONE (14:00)
[2018-11-05] MEDS ORDERED: LORAZEPAM INJ 2 MG/1 ML VIAL IV ONE (14:24)
[2018-11-05 17:26] VITALS: BP 131/76
--- NOTE | 2018-11-05 17:47 | EKG REPORT ---
SEVERITY:- BORDERLINE ECG - SINUS RHYTHM BORDERLINE PROLONGED QT INTERVAL : Confirmed by: Pepito Hall MD 05-Nov-2018 17:46:23
== END 2018-11-05 17:45 | disposition home or self-care (01) ==
LOC: ER 11:10
DX: R07.9 Chest pain, unspecified (principal); I10 Essential (primary) hypertension; I25.2 Old myocardial infarction; E11.9 Type 2 diabetes mellitus without complications; R11.0 Nausea; R10.819 Abdominal tenderness, unspecified site; R06.00 Dyspnea, unspecified; Z88.8 Allergy status to other drugs, medicaments and biological substances; Z82.49 Family history of ischemic heart disease and other diseases of the circulatory system
CPT/HCPCS: 93005; 99285; 96374; 96375; 36415; 83690; 85025; 81025; 80053; 81001; 84484; 71045; 93010; J1885; J2060; J2405

== ENCOUNTER 2019-01-14 19:26 | Emergency (ER) | payer SELFPAY ==
[2019-01-14] MEDS ORDERED: MORPHINE SULFATE 10 MG/ML INJ IV ONE ×2 (20:21→22:27)
--- NOTE | 2019-01-14 20:26 | ER Document Report ---
ED Medical Screen (RME) - General Chief Complaint: Chest Pain > 30 Stated Complaint: CHEST PAIN Time Seen by Provider: 01/14/19 20:13 Primary Care Provider: LORENA LIZAMA,OLLIE [Primary Care Provider] - Follow up as needed Notes: Patient is a 33-year-old female presents emergency department with a chief complaint of chest pain. Patient has a history of an end STEMI May 2017.. Her pain started when she woke up today at 1130. It was in the middle of her chest that radiated along her left arm. She also states that she has some pain in her left upper back and in her neck. Patient has a past medical history of hypertension, anxiety, hyperlipidemia, and diabetes. Patient continues to smoke. Exam: S1, S2. Bilateral breath sounds clear to auscultation. I have greeted and performed a rapid initial assessment of this patient. A comprehensive ED assessment and evaluation of the patient, analysis of test results and completion of medical decision making process will be conducted by an additional ED providers. TRAVEL OUTSIDE OF THE [place] IN LAST 30 DAYS: No - Related Data Allergies/Adverse Reactions: trazodone Allergy (Verified 01/14/19 20:11) Past Medical History - Social History Frequency of alcohol use: None Drug Abuse: None Family history: Reviewed & Not Pertinent - Past Medical History Cardiac Medical History: Reports: Hx Heart Attack - May 2017, Hx Hyper cholesterolemia, Hx Hypertension Endocrine Medical History: Reports: Hx Diabetes Mellitus Type 2 Renal/ Medical History: Denies: Hx Peritoneal Dialysis Psychiatric Medical History: Reports: Hx Depression, Hx Post Traumatic Stress Disorder Past Surgical History: Reports: Hx Breast Surgery - R breast duct excision, Hx Cardiac Catheterization, Hx Cholecystectomy - Immunizations History of Influenza Vaccine for 03/2017 - 08/2017 Season: No Physical Exam - Vital signs Vitals: Temp Pulse Resp BP Pulse Ox 98.2 F 85 18 155/87 H 99 01/14/19 19:39 01/14/19 19:39 01/14/19 19:39 01/14/19 19:39 01/14/19 19:39 Course - Vital Signs Vital signs: Temp Pulse Resp BP Pulse Ox 98.2 F 85 18 155/87 H 99 01/14/19 19:39 01/14/19 19:39 01/14/19 19:39 01/14/19 19:39 01/14/19 19:39 Doctor's Discharge - Discharge Referrals: [facility] [Primary Care Provider] - Follow up as needed
[2019-01-14 20:38] LABS: ABSOLUTE BASOPHILS # (AUTO) 0.1 10^3/uL (0.0-0.2); ABSOLUTE EOSINOPHILS # (AUTO) 0.4 10^3/uL (0.0-0.6); ABSOLUTE LYMPHOCYTES (AUTO) 3.5 10^3/uL (0.5-4.7); ABSOLUTE MONOCYTES (AUTO) 0.7 10^3/uL (0.1-1.4); ABSOLUTE NEUT (AUTO) 8.2 10^3/uL (1.7-8.2); BASOPHILS % (AUTO) 1.1 % (0-2); EOSINOPHILS % (AUTO) 2.7 % (0-6); HEMATOCRIT 41.8 % (36.0-47.0); HEMOGLOBIN 13.8 g/dL (12.0-15.5); LYMPHOCYTES % (AUTO) 27.1 % (13-45); MEAN CORPUSCULAR HEMOGLOBIN 26.3 pg (27.0-33.4); MEAN CORPUSCULAR HGB CONC 33.1 g/dL (32.0-36.0); MEAN CORPUSCULAR VOLUME 80 fl (80-97); MONOCYTES % (AUTO) 5.4 % (3-13); PLATELET COUNT 288 10^3/uL (150-450); RED BLOOD COUNT 5.25 10^6/uL (3.72-5.28); RED CELL DISTRIBUTION WIDTH 14.4 % (11.5-14.0); SEGMENTED NEUTROPHILS % (AUTO) 63.7 % (42-78); TOTAL CELLS COUNTED % (AUTO) 100 %; WHITE BLOOD COUNT 12.9 10^3/uL (4.0-10.5)
[2019-01-14 20:56] LABS: ALANINE AMINOTRANSFERASE 25 U/L (9-52); ALBUMIN 4.5 g/dL (3.5-5.0); ALKALINE PHOSPHATASE 111 U/L (38-126); ANION GAP 13 (5-19); ASPARTATE AMINO TRANSFERASE 21 U/L (14-36); BILIRUBIN,DIRECT 0.2 mg/dL (0.0-0.4); BILIRUBIN,TOTAL 0.3 mg/dL (0.2-1.3); BLOOD UREA NITROGEN 11 mg/dL (7-20); CALCIUM 9.8 mg/dL (8.4-10.2); CARBON DIOXIDE 21 mmol/L (22-30); CHLORIDE 104 mmol/L (98-107); CREATINE KINASE 42 U/L (30-135); GLUCOSE 194 mg/dL (75-110); POTASSIUM 5.3 mmol/L (3.6-5.0); TOTAL PROTEIN 7.2 g/dL (6.3-8.2)
--- NOTE | 2019-01-14 21:08 | RADIOLOGY REPORT (SQ) ---
EXAM DESCRIPTION: XR CHEST 1 VIEW COMPLETED DATE/TME: 01/14/2019 20:21 CLINICAL HISTORY: 33 years Female chest pain COMPARISON: None. FINDINGS: The cardiomediastinal silhouette appears unremarkable. No consolidating infiltrates or pleural effusions. No pneumothorax. IMPRESSION: No acute abnormality is identified.
[2019-01-14 21:10] LABS: CREATINE KINASE MB < 0.22 ng/mL (<4.55); TROPONIN I < 0.012 ng/mL
--- NOTE | 2019-01-14 21:52 | EKG REPORT ---
SEVERITY:- BORDERLINE ECG - SINUS RHYTHM BORDERLINE PROLONGED QT INTERVAL : Confirmed by: Frannie Bonilla 14-Jan-2019 21:52:15
--- NOTE | 2019-01-14 22:17 | ER Document Report ---
ED General - General Chief Complaint: Chest Pain > 30 Stated Complaint: CHEST PAIN Time Seen by Provider: 01/14/19 20:13 Primary Care Provider: [facility] [Primary Care Provider] - Follow up as needed Mode of Arrival: Ambulatory Information source: Patient, [facility] Records Notes: 33-year-old female with coronary artery disease, diabetes, hyperlipidemia, hyp ertension, chronic kidney disease, anxiety presents with complaint of chest pain that started this morning upon awakening. Patient describes the pain as pressure-like, constant with radiation down her left arm. She denies any associated diaphoresis, dizziness, shortness of breath but does admit to associated nausea without vomiting. Patient also currently complaining of dysuria, increased urinary frequency. TRAVEL OUTSIDE OF THE [place] IN LAST 30 DAYS: No - HPI Onset: This morning Onset/Duration: Gradual, Constant, Persistent Quality of pain: Pressure Severity: Moderate Pain Level: 2 Associated symptoms: Chest pain, Nausea. denies: Nonproductive cough, Productive cough, Diarrhea, Fever, Headache, Vomiting, Shortness of breath, Sweating, Weakness Exacerbated by: Denies Relieved by: Denies Similar symptoms previously: Yes Recently seen / treated by doctor: No - Related Data Allergies/Adverse Reactions: trazodone Allergy (Verified 01/14/19 20:11) Past Medical History - General Information source: Patient - Social History Smoking Status: Current Every Day Smoker Cigarette use (# per day): Yes - 15 Smoking Education Provided: Yes - Smoking cessation counseling was provided for 4 minutes at the bedside Frequency of alcohol use: None Drug Abuse: None Lives with: Family, Spouse/Significant other Family History: CAD, DM, Hyperlipidemia, Hypertension, Other - CKD Patient has suicidal ideation: No Patient has homicidal ideation: No - Past Medical History Cardiac Medical History: Reports: Hx Heart Attack - May 2017, Hx Hypercholesterolemia, Hx Hypertension Endocrine Medical History: Reports: Hx Diabetes Mellitus Type 2 Renal/ Medical History: Denies: Hx Peritoneal Dialysis Psychiatric Medical History: Reports: Hx Depression, Hx Post Traumatic Stress Disorder Past Surgical History: Reports: Hx Breast Surgery - R breast duct excision, Hx Cardiac Catheterization, Hx Cholecystectomy Review of Systems - Review of Systems Notes: REVIEW OF SYSTEMS: CONSTITUTIONAL : Denies fever, chills, or sweats. Denies recent illness. De nies weight loss, recent hospitalizations. EENT: Denies visual changes, eye pain. Denies sore throat, oral lesions, difficulty swallowing. CARDIOVASCULAR: + chest pain. Denies palpitations. Denies lower extremity edema. RESPIRATORY: Denies cough. Denies shortness of breath, wheezing. GASTROINTESTINAL: Denies abdominal pain or distention. Denies vomiting, or diarrhea. Denies blood in vomitus, stools, or per rectum. Denies black, tarry stools. Denies constipation. GENITOURINARY: Denies difficulty urinating, blood in urine, or vaginal discharge. MUSCULOSKELETAL: Denies back or neck pain or stiffness. Denies joint pain or swelling. SKIN: Denies rash, lesions or sores. HEMATOLOGIC : Denies easy bruising or bleeding. LYMPHATIC: Denies swollen glands. NEUROLOGICAL: Denies confusion or altered mental status. Denies loss of consciousness. Denies dizziness or lightheadedness. Denies headache. Denies weakness or paralysis. Denies problems difficulty with ambulation, slurred speech. Denies sensory loss, numbness, or tingling. Denies seizures. PSYCHIATRIC: Denies anxiety or stress. Denies depression, suicidal ideation, or homicidal ideation. Denies visual or auditory hallucinations. Physical Exam - Vital signs Vitals: Temp Pulse Resp BP Pulse Ox 98.2 F 85 18 155/87 H 99 01/14/19 19:39 01/14/19 19:39 01/14/19 19:39 01/14/19 19:39 01/14/19 19:39 - Notes Notes: PHYSICAL EXAMINATION: GENERAL: Well-appearing, well-nourished and in no acute distress. HEAD: Atraumatic, normocephalic. EYES: Pupils equal round and reactive to light, extraocular movements intact, conjunctiva are normal. ENT: Nares patent, oropharynx clear without exudates. Moist mucous membranes. NECK: Normal range of motion, supple without lymphadenopathy LUNGS: Breath sounds clear to auscultation bilaterally and equal. No wheezes rales or rhonchi. HEART: Regular rate and rhythm without murmurs ABDOMEN: Soft, nontender, nondistended abdomen. No guarding, no rebound. No masses appreciated. Female : deferred Musculoskeletal: Normal range of motion, no pitting or edema. No cyanosis. NEUROLOGICAL: Cranial nerves grossly intact. Normal speech, normal gait. Normal sensory, motor exams PSYCH: Normal mood, normal affect. SKIN: Warm, Dry, normal turgor, no rashes or lesions noted. Course - Re-evaluation Re-evalutation: Temp Pulse Resp BP Pulse Ox 98.2 F 85 19 132/77 H 97 01/14/19 19:39 01/14/19 19:39 01/14/19 22:01 01/14/19 22:01 01/14/19 22:01 01/14/19 22:30 33-year-old female presents with complaint of chest pain that started this m orning upon awakening. Vital signs reviewed upon arrival and patient is afebrile, normotensive and not hypoxic. Patient does not appear toxic or dehydrated. She is in no acute distress. Previous medical records and nursing notes reviewed. Initial troponin negative. Will repeat troponin at 2315. Patient has received morphine, Zofran. 01/15/19 00:17 Presentation of chest pain in an otherwise well appearing patient. Low clinical suspicion for ACS given clinical history, exam, EKG without ST elevations or depressions, and negative initial troponin. HEART score less than or equal to 3. PE also seems unlikely given clinical history, absence of tachycardia or dyspnea. Patient is PERC criteria negative. CXR without evidence of pneumothorax or pneumonia. No widened mediastinum. Aortic dissection also seems unlikely given history, symmetric pulses, CXR, and vitals. HEART Score: History-0 ECG-0 Age-0 Risk Factors-2 Troponin-0 Total: 2 Chest pain in a patient without evidence of cardiac or other serious etiology on workup today. I discussed with patient that, based on their age, risk factors and emergency department testing today, the likelihood that their symptoms are related to a heart attack is very low (estimated risk of heart attack or over the next 30 days of less than 1%). The patient demonstrates decision making capacity and has verbalized an understanding of these risks to me. Based on this, the patient has chosen to follow-up as an outpatient. Usual chest pain return precautions reviewed. The patient states understanding and agreement with this plan. - Vital Signs Vital signs: Temp Pulse Resp BP Pulse Ox 98.0 F 85 19 117/73 96 01/15/19 00:01 01/14/19 19:39 01/15/19 00:01 01/15/19 00:01 01/15/19 00:01 - Laboratory Result Diagrams: 01/14/19 20:27 01/14/19 20:27 Laboratory results interpreted by me: 01/14/19 01/14/19 20:27 20:27 WBC 12.9 H MCH 26.3 L RDW 14.4 H Potassium 5.3 H Carbon Dioxide 21 L Glucose 194 H - Diagnostic Test Radiology reviewed: Image reviewed, Reports reviewed - EKG Interpretation by Me EKG shows normal: Sinus rhythm Rate: Normal Rhythm: NSR - Borderline prolonged QTC at 482. 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 The exact cause of your pain is unclear. However, based on your cardiac enzyme testing, chest x-ray, and EKG it does not appear that it is from an immediately life-threatening cause at this time. Although your testing here is normal is critical that you follow-up with your primary care physician for continued evaluation of this chest pain and possible stress testing. I recommended you see your physician within the next 24-48 hours to be evaluated for consideration of a stress test. Please return to emergency department immediately if you have worsening of your chest pain, shortness of breath, vomiting, become unable to exert yourself due to pain or difficulty breathing, you pass out, or have any pain that radiates into your arms, jaw, or back. Please also return if you have any additional symptoms that are concerning to you. Recommendations: It is recommended to followup with a primary care doctor within the next 2 days. If you do not have a primary care doctor or you are unable to get an apointment during that time, I left the number for some internal medicine physicians that are affiliated with this [facility] hospital. Dr. Levi Antony Cox [address], [place] [address] [phone] Dr Ellsworth Address: [address] [place] [address] , [place] [address] Dr Diaz Address: [address] [place] [address] , [place] [address] Forms: Elevated Blood Pressure, Smoking Cessation Education Referrals: [facility] [Primary Care Provider] - Follow up as needed
[2019-01-14 23:30] LABS: APPEARANCE,URINE CLEAR; BILIRUBIN,URINE NEGATIVE (NEGATIVE); COLOR,URINE STRAW; GLUCOSE, URINE NEGATIVE (NEGATIVE); KETONES,URINE NEGATIVE (NEGATIVE); LEUKOCYTE ESTERASE,URINE NEGATIVE (NEGATIVE); NITRITE,URINE NEGATIVE (NEGATIVE); PROTEIN,URINE NEGATIVE (NEGATIVE); URINE SPECIFIC GRAVITY 1.006; UROBILINOGEN,URINE NEGATIVE mg/dL (<2.0)
[2019-01-15] MEDS ORDERED: OXYCODONE-ACETAMINOPHEN 5-325 MG TABLET PO ONE (00:07)
[2019-01-15 00:30] VITALS: BP 117/73
--- NOTE | 2019-01-15 07:01 | EKG REPORT ---
SEVERITY:- BORDERLINE ECG - SINUS RHYTHM BORDERLINE PROLONGED QT INTERVAL : Confirmed by: Frannie Bonilla 15-Jan-2019 07:00:48
== END 2019-01-15 00:30 | disposition home or self-care (01) ==
LOC: ER 19:26
DX: R07.9 Chest pain, unspecified (principal); I10 Essential (primary) hypertension; E13.9 Other specified diabetes mellitus without complications; R11.0 Nausea; F17.210 Nicotine dependence, cigarettes, uncomplicated; Z90.49 Acquired absence of other specified parts of digestive tract
CPT/HCPCS: 93005 ×2; 96376; 99406; 99285; 96374; 36415; 82553; 82550; 85025; 81025; 80053; 81001; 84484; 71045; 93010 ×2; J2270

== ENCOUNTER 2019-02-21 07:25 | Emergency (ER) | payer SELFPAY ==
[2019-02-21 08:32] LABS: ABSOLUTE BASOPHILS # (AUTO) 0.1 10^3/uL (0.0-0.2); ABSOLUTE EOSINOPHILS # (AUTO) 0.3 10^3/uL (0.0-0.6); ABSOLUTE LYMPHOCYTES (AUTO) 3.1 10^3/uL (0.5-4.7); ABSOLUTE MONOCYTES (AUTO) 0.7 10^3/uL (0.1-1.4); ABSOLUTE NEUT (AUTO) 7.9 10^3/uL (1.7-8.2); EOSINOPHILS % (AUTO) 2.4 % (0-6); HEMATOCRIT 40.8 % (36.0-47.0); HEMOGLOBIN 13.5 g/dL (12.0-15.5); LYMPHOCYTES % (AUTO) 25.2 % (13-45); MEAN CORPUSCULAR HEMOGLOBIN 26.2 pg (27.0-33.4); MEAN CORPUSCULAR HGB CONC 33.2 g/dL (32.0-36.0); MEAN CORPUSCULAR VOLUME 79 fl (80-97); MONOCYTES % (AUTO) 5.6 % (3-13); PLATELET COUNT 248 10^3/uL (150-450); RED BLOOD COUNT 5.17 10^6/uL (3.72-5.28); RED CELL DISTRIBUTION WIDTH 14.9 % (11.5-14.0); SEGMENTED NEUTROPHILS % (AUTO) 65.8 % (42-78); TOTAL CELLS COUNTED % (AUTO) 100 %; WHITE BLOOD COUNT 12.1 10^3/uL (4.0-10.5)
[2019-02-21 08:56] LABS: ALBUMIN 4.2 g/dL (3.5-5.0); ALKALINE PHOSPHATASE 107 U/L (38-126); ANION GAP 13 (5-19); ASPARTATE AMINO TRANSFERASE 14 U/L (14-36); BILIRUBIN,DIRECT 0.2 mg/dL (0.0-0.4); BILIRUBIN,TOTAL 0.2 mg/dL (0.2-1.3); BLOOD UREA NITROGEN 10 mg/dL (7-20); CALCIUM 9.3 mg/dL (8.4-10.2); CARBON DIOXIDE 22 mmol/L (22-30); CHLORIDE 101 mmol/L (98-107); CREATINE KINASE 31 U/L (30-135); GLUCOSE 281 mg/dL (75-110); POTASSIUM 4.3 mmol/L (3.6-5.0); TOTAL PROTEIN 6.7 g/dL (6.3-8.2)
[2019-02-21 08:58] LABS: APPEARANCE,URINE CLEAR; BILIRUBIN,URINE NEGATIVE (NEGATIVE); COLOR,URINE STRAW; GLUCOSE, URINE 50 mg/dL (NEGATIVE); KETONES,URINE NEGATIVE (NEGATIVE); LEUKOCYTE ESTERASE,URINE NEGATIVE (NEGATIVE); NITRITE,URINE NEGATIVE (NEGATIVE); PROTEIN,URINE NEGATIVE (NEGATIVE); UROBILINOGEN,URINE NEGATIVE mg/dL (<2.0)
[2019-02-21 09:09] LABS: CREATINE KINASE MB < 0.22 ng/mL (<4.55); TROPONIN I < 0.012 ng/mL
--- NOTE | 2019-02-21 09:11 | ER Document Report ---
Entered by AYSHA CHRISTIANSON SCRIBE 02/21/19 0825 Acting as scribe for:DOMENIC TAPIA MD ED General - General Chief Complaint: Chest Pain Stated Complaint: CHEST PAIN Time Seen by Provider: 02/21/19 08:10 Primary Care Provider: YVETTE WELLER MD [Primary Care Provider] - Follow up as needed Information source: Patient Notes: Patient is a 33 year old female that presents to the emergency department today with complaints of chest pain. Patient reports having a previous [place] in [place] in 2017 stating that "they did a heart cath and the arteries were so clogged they couldn't fit in the balloon". On 10/17/2018 the patient had a cardiolite stress test which found "no scintigraphic evidence of Lexiscan induced myocardial ischeme and no scintigraphic evidence of myocardial infarction/scar". Patient describes her chest pain as "squeezing, crushing, achy everywhere" which radiates to her back. Patient states her chest pain is exacerbated with movement. Patient states she hasn't missed any medications other than her Lantus which she states she ran out of. There is mention in the patient's records that there was a cardiac catherization at [facility] but no results are mentioned. A discharge summary from this facility on 04/12 states "cardiac cath from May 2017 revealed a normal ejection fraction a 50% LAD a proximal 70% first diagonal and proximal 70% obtuse marginal. Stress test was negative. It was suspected patient may have had a vasospasm during the first catheterization. She will follow-up with cardiology. She has been counseled on aggressive dietary medical treatments for her coronary artery disease. Additionally strongly counseled on smoking cessation." TRAVEL OUTSIDE OF THE [place] IN LAST 30 DAYS: No - Related Data Allergies/Adverse Reactions: trazodone Allergy (Verified 02/21/19 07:26) Past Medical History - General Information source: Patient, [facility] Records, Outside Facility Records - Social History Smoking Status: Current Every Day Smoker Cigarette use (# per day): Yes Chew tobacco use (# tins/day): No Smoking Education Provided: No Frequency of alcohol use: None Drug Abuse: None Lives with: Family Family History: Reviewed & Not Pertinent, CAD, DM, Hyperlipidemia, Hypertension, Other - CKD - Past Medical History Cardiac Medical History: Reports: Hx Heart Attack - May 2017, Hx Hypercholesterolemia, Hx Hypertension Endocrine Medical History: Reports: Hx Diabetes Mellitus Type 2 Psychiatric Medical History: Reports: Hx Anxiety, Hx Bipolar Disorder, Hx Depression, Hx Post Traumatic Stress Disorder Past Surgical History: Reports: Hx Breast Surgery - R breast duct excision, Hx Cardiac Catheterization - no stents placed, Hx Cholecystectomy Review of Systems - Review of Systems Constitutional: No symptoms reported EENT: No symptoms reported Cardiovascular: See HPI, Chest pain Respiratory: No symptoms reported Gastrointestinal: No symptoms reported Genitourinary: No symptoms reported Female Genitourinary: No symptoms reported Musculoskeletal: No symptoms reported Skin: No symptoms reported Hematologic/Lymphatic: No symptoms reported Neurological/Psychological: No symptoms reported -: Yes All other systems reviewed and negative Physical Exam - Vital signs Vitals: Temp Pulse Resp BP Pulse Ox 98.1 F 93 18 186/91 H 98 02/21/19 07:28 02/21/19 07:28 02/21/19 07:28 02/21/19 07:28 02/21/19 07:28 - Notes Notes: Physical Exam: General: Alert, tearful. Obese. HEENT: Normocephalic. Atraumatic. PERRL. Extraocular movements intact. Oropharynx clear. Neck: Supple. Non-tender. Respiratory: No respiratory distress. Clear and equal breath sounds bilaterally. Cardiovascular: Regular rate and rhythm. Abdominal: Obese. Non-tender. No distension. Normal Bowel Sounds. Back: No gross abnormalities. Extremities: Moves all four extremities. Upper extremities: Normal inspection. Normal ROM. Lower extremities: Normal inspection. No edema. Normal ROM. Neurological: Normal cognition. AAOx4. Normal speech. Psychological: Tearful Skin: Warm. Dry. Normal color. Course - Re-evaluation Re-evalutation: 02/21/19 09:34 Patient has had constant pain for 2 to 3 days. EKG is normal. Troponin is undetectable. Lexiscan Cardiolite stress test 4 months ago was completely normal with no ischemic changes and no old scar suggesting myocardial infarction. I feel the patient can be safely discharged home at this time. - Vital Signs Vital signs: Temp Pulse Resp BP Pulse Ox 98.1 F 93 27 H 137/86 H 97 02/21/19 07:28 02/21/19 07:28 02/21/19 09:01 02/21/19 09:01 02/21/19 09:01 - Laboratory Result Diagrams: 02/21/19 08:13 02/21/19 08:13 Laboratory results interpreted by me: 02/21/19 02/21/19 02/21/19 08:13 08:13 08:46 WBC 12.1 H MCV 79 L MCH 26.2 L RDW 14.9 H Sodium 136.2 L Glucose 281 H Urine Glucose (UA) 50 H Urine Blood LARGE H - EKG Interpretation by Me EKG shows normal: Sinus rhythm, Griffin, Intervals, QRS Complexes, ST-T Waves Rate: Normal - 90 Rhythm: NSR Discharge - Discharge Clinical Impression: ATYPICAL CHEST PAIN Condition: Stable Disposition: HOME, SELF-CARE Additional Instructions: Chest Pain of Unclear Cause The exact cause of your chest pain isn't clear. Fortunately, there is no evidence of a dangerous medical condition. Further testing may be required to find the source of the pain. Most often, we find that this pain is coming from the chest wall -- the muscles or rib joints in the chest. But chest pain can come from the lung and lung lining, the esophagus, the heart valves or heart lining, and even the stomach or gallbladder. Rest. Eat lightly until the pain is gone. We may recommend medicine such as Tylenol and Aleve or ibuprofen for pain and inflammation. You should call the physician immediately if the pain radiates to the shelia ulder, jaw or arms; if you start to run a fever or develop a cough; or if you develop shortness of breath, or other new or alarming symptoms. Your EKG was normal today. Despite 2 to 3 days of nearly constant pain, your cardiac enzymes are undetectable. We do not feel that your chest discomfort is of a cardiac origin at this time. Follow-up with your primary care provider if your discomfort does not improve. RETURN TO THE EMERGENCY ROOM IF ANY NEW OR WORSENING SYMPTOMS. Referrals: YVETTE WELLER MD [Primary Care Provider] - Follow up as needed Scribe Attestation: 02/21/19 09:37 I personally performed the services described in the documentation, reviewed and edited the documentation which was dictated to the scribe in my presence, and it accurately records my words and actions. I personally performed the services described in the documentation, reviewed and edited the documentation which was dictated to the scribe in my presence, and it accurately records my words and actions.
[2019-02-21 10:01] VITALS: BP 139/84
--- NOTE | 2019-02-22 14:22 | EKG REPORT ---
SEVERITY:- NORMAL ECG - SINUS RHYTHM : Confirmed by: Frannie Bonilla 22-Feb-2019 14:21:20
== END 2019-02-21 10:01 | disposition home or self-care (01) ==
LOC: ER 07:25
DX: R07.89 Other chest pain (principal); I25.10 Atherosclerotic heart disease of native coronary artery without angina pectoris; I10 Essential (primary) hypertension; E11.9 Type 2 diabetes mellitus without complications; T38.3X6A Underdosing of insulin and oral hypoglycemic [antidiabetic] drugs, initial encounter; Z91.128 Patient's intentional underdosing of medication regimen for other reason; F17.210 Nicotine dependence, cigarettes, uncomplicated; Z88.8 Allergy status to other drugs, medicaments and biological substances; Z82.49 Family history of ischemic heart disease and other diseases of the circulatory system
CPT/HCPCS: 36415; 80053; 81001; 82550; 82553; 84484; 84703; 85025; 93005; 93010; 99285

== ENCOUNTER 2019-03-28 11:47 | Emergency (ER) | payer SELFPAY ==
[2019-03-28] MEDS ORDERED: ASPIRIN 81 MG TABLET, CHEWABLE PO ONE (12:17)
--- NOTE | 2019-03-28 12:19 | ER Document Report ---
ED Medical Screen (RME) - General Chief Complaint: Chest Pain Stated Complaint: CHEST PAIIN Time Seen by Provider: 03/28/19 12:09 Primary Care Provider: YVETTE WELLER MD [Primary Care Provider] - Follow up as needed Notes: Patient is a 33-year-old female presents emergency department with a chief complaint of chest pain. She states that her pain started last night and went away and then it came back this morning. The pain is in the left side of her chest and it radiates to her shoulder to her left arm. Patient has a history of myocardial infarctions in the past. She has hyperlipidemia and diabetes. Exam: S1, S2. I have greeted and performed a rapid initial assessment of this patient. A comprehensive ED assessment and evaluation of the patient, analysis of test results and completion of medical decision making process will be conducted by an additional ED providers. TRAVEL OUTSIDE OF THE [place] IN LAST 30 DAYS: No - Related Data Allergies/Adverse Reactions: trazodone Allergy (Verified 02/21/19 07:26) metformin Adverse Reaction (Severe, Verified 03/28/19 12:12) V/D Home Medications: metoprolol, lisinopril, lantus, novolog, atorvastatin, claritin, asa, tylenol, cymbalta, pepcid Past Medical History - Social History Chew tobacco use (# tins/day): No Frequency of alcohol use: None Drug Abuse: None Family history: Reviewed & Not Pertinent - Past Medical History Cardiac Medical History: Reports: Hx Heart Attack - May 2017, Hx Hypercholesterolemia, Hx Hypertension Endocrine Medical History: Reports: Hx Diabetes Mellitus Type 2 Renal/ Medical History: Denies: Hx Peritoneal Dialysis Psychiatric Medical History: Reports: Hx Anxiety, Hx Bipolar Disorder, Hx Depression, Hx Post Traumatic Stress Disorder Past Surgical History: Reports: Hx Breast Surgery - R breast duct excision, Hx Cardiac Catheterization - no stents placed, Hx Cholecystectomy Doctor's Discharge - Discharge Referrals: YVETTE WELLER MD [Primary Care Provider] - Follow up as needed
[2019-03-28 12:45] LABS: ABSOLUTE BASOPHILS # (AUTO) 0.1 10^3/uL (0.0-0.2); ABSOLUTE EOSINOPHILS # (AUTO) 0.3 10^3/uL (0.0-0.6); ABSOLUTE MONOCYTES (AUTO) 0.7 10^3/uL (0.1-1.4); ABSOLUTE NEUT (AUTO) 6.8 10^3/uL (1.7-8.2); BASOPHILS % (AUTO) 1.1 % (0-2); EOSINOPHILS % (AUTO) 2.8 % (0-6); HEMATOCRIT 41.5 % (36.0-47.0); HEMOGLOBIN 13.6 g/dL (12.0-15.5); LYMPHOCYTES % (AUTO) 33.8 % (13-45); MEAN CORPUSCULAR HEMOGLOBIN 25.8 pg (27.0-33.4); MEAN CORPUSCULAR HGB CONC 32.9 g/dL (32.0-36.0); MEAN CORPUSCULAR VOLUME 79 fl (80-97); MONOCYTES % (AUTO) 5.6 % (3-13); PLATELET COUNT 269 10^3/uL (150-450); RED BLOOD COUNT 5.28 10^6/uL (3.72-5.28); RED CELL DISTRIBUTION WIDTH 15.2 % (11.5-14.0); SEGMENTED NEUTROPHILS % (AUTO) 56.7 % (42-78); TOTAL CELLS COUNTED % (AUTO) 100 %
--- NOTE | 2019-03-28 12:54 | RADIOLOGY REPORT (SQ) ---
EXAM DESCRIPTION: CHEST SINGLE VIEW COMPLETED DATE/TIME: 03/28/2019 12:43 pm REASON FOR STUDY: chest pain COMPARISON: 01/14/2019 EXAM PARAMETERS: NUMBER OF VIEWS: One view. TECHNIQUE: Single frontal radiographic view of the chest acquired. RADIATION DOSE: NA LIMITATIONS: None. FINDINGS: LUNGS AND PLEURA: No opacities, masses or pneumothorax. No pleural effusion. MEDIASTINUM AND HILAR STRUCTURES: No masses. Contour normal. HEART AND VASCULAR STRUCTURES: Heart normal in size. Normal vasculature. BONES: No acute findings. HARDWARE: None in the chest. OTHER: No other significant finding. IMPRESSION: NO ACUTE RADIOGRAPHIC FINDING IN THE CHEST. TECHNICAL DOCUMENTATION: JOB ID: [id number] [employer]- All Rights Reserved Reading location - IP/workstation name: [email or web address]
--- NOTE | 2019-03-28 13:07 | EKG REPORT ---
SEVERITY:- NORMAL ECG - SINUS RHYTHM : Confirmed by: Pepito Hall MD 28-Mar-2019 13:06:43
[2019-03-28 13:13] LABS: ALBUMIN 4.6 g/dL (3.5-5.0); ALKALINE PHOSPHATASE 93 U/L (38-126); ANION GAP 12 (5-19); ASPARTATE AMINO TRANSFERASE 15 U/L (14-36); BILIRUBIN,DIRECT 0.1 mg/dL (0.0-0.4); BILIRUBIN,TOTAL 0.3 mg/dL (0.2-1.3); BLOOD UREA NITROGEN 12 mg/dL (7-20); CALCIUM 9.9 mg/dL (8.4-10.2); CARBON DIOXIDE 26 mmol/L (22-30); CHLORIDE 100 mmol/L (98-107); CREATINE KINASE 31 U/L (30-135); GLUCOSE 188 mg/dL (75-110); POTASSIUM 4.8 mmol/L (3.6-5.0); TOTAL PROTEIN 7.5 g/dL (6.3-8.2)
[2019-03-28 13:19] LABS: CREATINE KINASE MB < 0.22 ng/mL (<4.55); TROPONIN I < 0.012 ng/mL
[2019-03-28] MEDS ORDERED: KETOROLAC TROMETHAMINE INJ/PF 30 MG/1 ML SDV IV ONE (13:54)
--- NOTE | 2019-03-28 16:02 | ER Document Report ---
Entered by AYSHA CHRISTIANSON SCRIBE 03/28/19 1344 Acting as scribe for:DOMENIC TAPIA MD ED Cardiac - General Chief Complaint: Chest Pain Stated Complaint: CHEST PAIIN Time Seen by Provider: 03/28/19 12:09 Primary Care Provider: YVETTE WELLER MD [HONORARY] - Follow up as needed Notes: This 33-year-old female patient comes emergency room complaining of chest pain that started at 5 PM yesterday evening. She states she went to bed and to sleep at 6 PM yesterday but was still hurting when she fell asleep. She states he got better during the night and she felt better in the morning. She states the pain returned at 1030 this morning and has been getting progressively worse since then. She states the pain is very severe now in her left upper anterior chest going into the shoulder and arm, and into the neck and jaw. Patient did go to her primary care provider at the [facility] where an EKG was done that was normal. She was then referred to the emergency room because of her ongoing chest pain. In the past she reported having an CA in 2017 while she was in [place] and claims a cardiac cath showed the arteries so clogged that they could not fit the balloon in. She did have a Cardiolite stress test on 10/17/2018 that showed no evidence of myocardial ischemia or myocardial infarction or scar. The patient does continue to smoke. She was seen here on 02/21/2019 with essentially identical symptoms that have been going on for 2 to 3 days. She had a negative work-up at that time including negative troponins and a totally normal EKG. She states this pain is different and that is much worse. TRAVEL OUTSIDE OF THE [place] IN LAST 30 DAYS: No - Related Data Allergies/Adverse Reactions: trazodone Allergy (Verified 02/21/19 07:26) metformin Adverse Reaction (Severe, Verified 03/28/19 12:12) V/D Home Medications: metoprolol, lisinopril, lantus, novolog, atorvastatin, cl aritin, asa, tylenol, cymbalta, pepcid Past Medical History - General Information source: Patient - Social History Smoking Status: Current Every Day Smoker Cigarette use (# per day): Yes - 1-2 PPD Chew tobacco use (# tins/day): No Smoking Education Provided: No Frequency of alcohol use: None Drug Abuse: None Occupation: Unemployed Lives with: Spouse/Significant other Family History: Reviewed & Not Pertinent, CAD, DM, Hyperlipidemia, Hypertension, Other - CKD Patient has suicidal ideation: No Patient has homicidal ideation: No - Past Medical History Cardiac Medical History: Reports: Hx Heart Attack - May 2017, Hx Hypercholesterolemia, Hx Hypertension, Other - Negative Cardiolite stress test on 10/17/2018 Endocrine Medical History: Reports: Hx Diabetes Mellitus Type 2 Musculoskeletal Medical History: Reports None Psychiatric Medical History: Reports: Hx Anxiety, Hx Bipolar Disorder, Hx Depression, Hx Post Traumatic Stress Disorder Past Surgical History: Reports: Hx Breast Surgery - R breast duct excision, Hx Cardiac Catheterization - no stents placed, Hx Cholecystectomy Review of Systems - Review of Systems Constitutional: No symptoms reported EENT: No symptoms reported Cardiovascular: See HPI, Chest pain Respiratory: No symptoms reported Gastrointestinal: No symptoms reported Genitourinary: No symptoms reported Female Genitourinary: No symptoms reported Musculoskeletal: No symptoms reported Skin: No symptoms reported Hematologic/Lymphatic: No symptoms reported Neurological/Psychological: No symptoms reported -: Yes All other systems reviewed and negative Physical Exam - Vital signs Vitals: Resp Pulse Ox 21 H 97 03/28/19 12:51 03/28/19 12:51 - Notes Notes: PHYSICAL EXAMINATION: GENERAL: Well-appearing, well-nourished, complaining of severe pain in her chest.. HEAD: Atraumatic, normocephalic. EYES: Pupils equal round and reactive to light, extraocular movements intact, sclera anicteric, conjunctiva are normal. ENT: nares patent, oropharynx clear without exudates. Moist mucous membranes. NECK: Normal range of motion, supple without lymphadenopathy LUNGS: Breath sounds clear to auscultation bilaterally and equal. No wheezes rales or rhonchi. CHEST: There is no tenderness to palpate the left anterior chest wall, there is minimal tenderness in the left trapezius muscle going out over the deltoid muscle region. HEART: Regular rate and rhythm without murmurs ABDOMEN: Soft, nontender, normoactive bowel sounds. Somewhat obese. No guarding, no rebound. No masses appreciated. EXTREMITIES: Normal range of motion, no pitting or edema. No cyanosis. NEUROLOGICAL: Cranial nerves grossly intact. Normal speech, normal gait. Normal sensory, motor, and reflex exams. PSYCH: Normal mood, normal affect. SKIN: Warm, Dry, normal turgor, no rashes or lesions noted. Course - Re-evaluation Re-evalutation: 03/28/19 13:51 Patient's just came out of the room to report that his spouse is in "horrific pain". 03/28/19 15:36 The d-dimer is unremarkable. Chest x-ray is unremarkable. EKG is completely normal. Serial troponins are undetectable. The patient history, physical, and evaluation with chest x-ray, EKG, monitoring, and serial lab work does not suggest a cardiac origin for her discomfort. - Vital Signs Vital signs: Temp Pulse Resp BP Pulse Ox 98.6 F 23 H 160/78 H 97 03/28/19 13:12 03/28/19 13:01 03/28/19 13:12 03/28/19 13:01 - Laboratory Result Diagrams: 03/28/19 12:25 03/28/19 12:25 Laboratory results interpreted by me: 03/28/19 03/28/19 03/28/19 12:13 12:25 12:25 WBC 12.0 H MCV 79 L MCH 25.8 L RDW 15.2 H Glucose 188 H POC Glucose 174 H C-React Prot High Sens 03/28/19 12:25 WBC MCV MCH RDW Glucose POC Glucose C-React Prot High Sens > 15.0000 H - Diagnostic Test Radiology reviewed: Image reviewed, Reports reviewed - Chest x-ray does not show acute cardiopulmonary process. - EKG Interpretation by Ms EKG shows normal: Sinus rhythm, [place], Intervals, QRS Complexes, ST-T Waves Rate: Normal - 74 Rhythm: NSR Discharge - Discharge Clinical Impression: Chest pain Qualifiers: Chest pain type: unspecified Qualified Code(s): R07.9 - Chest pain, unspecified Disposition: HOME, SELF-CARE Additional Instructions: Chest Pain of Unclear Cause The exact cause of your chest pain isn't clear. Fortunately, there is no evidence of a dangerous medical condition. Further testing may be required to find the source of the pain. Most often, we find that this pain is coming from the chest wall -- the muscles or rib joints in the chest. But chest pain can come from the lung and lung lining, the esophagus, the heart valves or heart lining, and even the stomach or gallbladder. Rest. Eat lightly until the pain is gone. We may prescribe medicine for pain and inflammation. You should call the physician immediately if the pain radiates to the shoulder, jaw or arms; if you start to run a fever or develop a cough; or if you develop shortness of breath, or other new or alarming symptoms. Your evaluation today does not suggest that your chest pain is due to cardiac ischemia. Your EKG is completely normal, serial cardiac enzymes are negative. You should take Tylenol and ibuprofen for pain. Avoid activities that may make your pain worse. Follow-up with your primary care provider if not improving. RETURN TO THE EMERGENCY ROOM IF ANY NEW OR WORSENING SYMPTOMS. Referrals: YVETTE WELLER MD [HONORARY] - Follow up as needed Scribe Attestation: 03/28/19 13:51 I personally performed the services described in the documentation, reviewed and edited the documentation which was dictated to the scribe in my presence, and it accurately records my words and actions. I personally performed the services described in the documentation, reviewed and edited the documentation which was dictated to the scribe in my presence, and it accurately records my words and actions.
[2019-03-28 16:09] VITALS: BP 132/72
== END 2019-03-28 16:09 | disposition home or self-care (01) ==
LOC: ER 11:47
DX: R07.9 Chest pain, unspecified (principal); F17.210 Nicotine dependence, cigarettes, uncomplicated; E78.00 Pure hypercholesterolemia, unspecified; I10 Essential (primary) hypertension; Z90.49 Acquired absence of other specified parts of digestive tract; I25.2 Old myocardial infarction; E11.9 Type 2 diabetes mellitus without complications; Z79.4 Long term (current) use of insulin
CPT/HCPCS: 93005; 99285; 96374; 36415; 82553; 82962; 82550; 83735; 84703; 85025; 85652; 80053; 84484; 85379; 86141; 71045; 93010; J1885

== ENCOUNTER 2019-05-23 16:10 | Emergency (ER) | payer SELFPAY ==
[2019-05-23] MEDS ORDERED: ASPIRIN 81 MG TABLET, CHEWABLE PO ONE (16:45)
--- NOTE | 2019-05-23 16:46 | ER Document Report ---
ED Medical Screen (RME) - General Chief Complaint: Chest Pain Stated Complaint: CHEST PAIN Time Seen by Provider: 05/23/19 16:41 [facility] [Primary [facility] Provider] - Follow up as needed Mode of Arrival: Ambulatory Information source: Patient Notes: 33-year-old female with history of [place] in 2017 reports to the emergency department with complaints of chest pain radiating down her left arm. Also reports her stomach feels bloated and she is having urinary frequency. Reports she never had any kind of cardiac surgery because her vessels were too small. Reports the left side of her heart is too small. Reports she had her [place] in [place]. She reports they found she was having the [place] after her second troponin. I have greeted and performed a rapid initial assessment of this patient. A comprehensive ED assessment and evaluation of the patient, analysis of test results and completion of the medical decision making process will be conducted by additional ED providers. Dictation of this chart was performed using voice recognition software; therefore, there may be some unintended grammatical errors. TRAVEL OUTSIDE OF THE [place] IN LAST 30 DAYS: No - Related Data Allergies/Adverse Reactions: trazodone Allergy (Verified 05/23/19 16:27) metformin Adverse Reaction (Severe, Verified 05/23/19 16:27) V/D Home Medications: Metoprolol. Lisinopril. Cymbalta. Atorvastatin. Lantus. Novolog Past Medical History - Social History Chew tobacco use (# tins/day): No Frequency of alcohol use: None Drug Abuse: None Family history: Reviewed & Not Pertinent - Past Medical History Cardiac Medical History: Reports: Hx Heart Attack - May 2017, Hx Hyperch olesterolemia, Hx Hypertension Endocrine Medical History: Reports: Hx Diabetes Mellitus Type 2 Renal/ Medical History: Denies: Hx Peritoneal Dialysis Psychiatric Medical History: Reports: Hx Anxiety, Hx Bipolar Disorder, Hx Depression, Hx Post Traumatic Stress Disorder Past Surgical History: Reports: Hx Breast Surgery - R breast duct excision, Hx Cardiac Catheterization - no stents placed, Hx Cholecystectomy Physical Exam - Vital signs Vitals: Temp Pulse Resp BP Pulse Ox 97.6 F 76 22 H 152/91 H 100 05/23/19 16:28 05/23/19 16:28 05/23/19 16:28 05/23/19 16:28 05/23/19 16:28 Course - Vital Signs Vital signs: Temp Pulse Resp BP Pulse Ox 97.6 F 76 22 H 152/91 H 100 05/23/19 16:28 05/23/19 16:28 05/23/19 16:28 05/23/19 16:28 05/23/19 16:28 Doctor's Discharge - Discharge Referrals: [facility] [Primary Care Provider] - Follow up as needed
--- NOTE | 2019-05-23 17:08 | RADIOLOGY REPORT (SQ) ---
EXAM DESCRIPTION: CHEST 2 VIEWS COMPLETED DATE/TIME: 05/23/2019 4:55 pm REASON FOR STUDY: cp COMPARISON: 03/28/2019 EXAM PARAMETERS: NUMBER OF VIEWS: two views TECHNIQUE: Digital Frontal and Lateral radiographic views of the chest acquired. RADIATION DOSE: NA LIMITATIONS: none FINDINGS: LUNGS AND PLEURA: No opacities, masses or pneumothorax. No pleural effusion. MEDIASTINUM AND HILAR STRUCTURES: No masses or contour abnormalities. HEART AND VASCULAR STRUCTURES: Heart normal size. No evidence for failure. BONES: No acute findings. HARDWARE: None in the chest. OTHER: No other significant finding. IMPRESSION: 1. No significant interval changes since the prior examination dated 03/28/2019. No acu te findings. TECHNICAL DOCUMENTATION: JOB ID: [id number] [employer]- All Rights Reserved Reading location - IP/workstation name: [email or web address]
[2019-05-23 17:51] LABS: ABSOLUTE BASOPHILS # (AUTO) 0.1 10^3/uL (0.0-0.2); ABSOLUTE EOSINOPHILS # (AUTO) 0.5 10^3/uL (0.0-0.6); ABSOLUTE LYMPHOCYTES (AUTO) 3.9 10^3/uL (0.5-4.7); ABSOLUTE MONOCYTES (AUTO) 0.6 10^3/uL (0.1-1.4); ABSOLUTE NEUT (AUTO) 7.1 10^3/uL (1.7-8.2); BASOPHILS % (AUTO) 0.5 % (0-2); EOSINOPHILS % (AUTO) 3.8 % (0-6); HEMATOCRIT 40.7 % (36.0-47.0); HEMOGLOBIN 13.3 g/dL (12.0-15.5); LYMPHOCYTES % (AUTO) 32.3 % (13-45); MEAN CORPUSCULAR HEMOGLOBIN 26.2 pg (27.0-33.4); MEAN CORPUSCULAR HGB CONC 32.7 g/dL (32.0-36.0); MEAN CORPUSCULAR VOLUME 80 fl (80-97); MONOCYTES % (AUTO) 5.3 % (3-13); PLATELET COUNT 288 10^3/uL (150-450); RED BLOOD COUNT 5.07 10^6/uL (3.72-5.28); RED CELL DISTRIBUTION WIDTH 15.7 % (11.5-14.0); SEGMENTED NEUTROPHILS % (AUTO) 58.1 % (42-78); TOTAL CELLS COUNTED % (AUTO) 100 %; WHITE BLOOD COUNT 12.2 10^3/uL (4.0-10.5)
[2019-05-23 18:13] LABS: ALBUMIN 4.3 g/dL (3.5-5.0); ALKALINE PHOSPHATASE 84 U/L (38-126); ANION GAP 8 (5-19); ASPARTATE AMINO TRANSFERASE 16 U/L (14-36); BILIRUBIN,DIRECT 0.1 mg/dL (0.0-0.4); BILIRUBIN,TOTAL 0.3 mg/dL (0.2-1.3); BLOOD UREA NITROGEN 15 mg/dL (7-20); CALCIUM 9.4 mg/dL (8.4-10.2); CARBON DIOXIDE 26 mmol/L (22-30); CHLORIDE 104 mmol/L (98-107); CREATINE KINASE 42 U/L (30-135); GLUCOSE 187 mg/dL (75-110); POTASSIUM 4.6 mmol/L (3.6-5.0); TOTAL PROTEIN 7.1 g/dL (6.3-8.2)
[2019-05-23] MEDS ORDERED: ASPIRIN 81 MG TABLET, CHEWABLE ONE (20:28)
[2019-05-23 21:32] LABS: APPEARANCE,URINE CLEAR; BILIRUBIN,URINE NEGATIVE (NEGATIVE); COLOR,URINE STRAW; GLUCOSE, URINE NEGATIVE (NEGATIVE); KETONES,URINE NEGATIVE (NEGATIVE); LEUKOCYTE ESTERASE,URINE NEGATIVE (NEGATIVE); NITRITE,URINE NEGATIVE (NEGATIVE); PROTEIN,URINE NEGATIVE (NEGATIVE); URINE SPECIFIC GRAVITY 1.004; UROBILINOGEN,URINE NEGATIVE mg/dL (<2.0)
[2019-05-23] MEDS ORDERED: MORPHINE SULFATE 10 MG/ML INJ IV ONE (21:40)
--- NOTE | 2019-05-24 00:05 | EKG REPORT ---
SEVERITY:- BORDERLINE ECG - SINUS RHYTHM BORDERLINE PROLONGED QT INTERVAL : Confirmed by: Charito Quinonez MD 24-May-2019 00:04:30
--- NOTE | 2019-05-24 00:42 | ER Document Report ---
ED General - General Chief Complaint: Chest Pain Stated Complaint: CHEST PAIN Time Seen by Provider: 05/23/19 16:41 Primary Care Provider: [facility] [Primary Care Provider] - Follow up as needed Mode of Arrival: Ambulatory Information source: Patient TRAVEL OUTSIDE OF THE [place] IN LAST 30 DAYS: No - HPI Patient complains to provider of: Chest Pain going down left arm Onset: Other - this morning Onset/Duration: Gradual Quality of pain: Sharp, Stabbing Severity: Moderate Pain Level: 4 Associated symptoms: Nausea, Shortness of breath Exacerbated by: Other - Exertion Relieved by: Other - rest Similar symptoms previously: Yes Recently seen / treated by doctor: Yes - Patient was seen in the ER in March for the same Notes: 33 year old female with a history of a prior [place] in 2016 (she says she had a cath then showing a 70% stenosis but no stent was placed), HTN, HLD, DM, Anxiety, Depression here for chest pain since yesterday morning. The patient woke up and then developed chest pain which radiated down to her left arm. The patient says exertion makes the pain worse and rest makes the pain better. The patient thinks she had a stress test about 6 months which was normal. - Related Data Allergies/Adverse Reactions: trazodone Allergy (Verified 05/23/19 16:27) metformin Adverse Reaction (Severe, Verified 05/23/19 16:27) V/D Home Medications: Metoprolol. Lisinopril. Cymbalta. Atorvastatin. Lantus. Novolog Past Medical History - General Information source: Patient - Social History Smoking Status: Current Every Day Smoker Chew tobacco use (# tins/day): No Frequency of alcohol use: None Drug Abuse: None Family History: Reviewed & Not Pertinent, CAD, DM, Hyperlipidemia, Hypertension, Other - CKD Patient has suicidal ideation: No Patient has homicidal ideation: No - Past Medical History Cardiac Medical History: Reports: Hx Heart Attack - May 2017, Hx Hypercholesterolemia, Hx Hypertension Endocrine Medical History: Reports: Hx Diabetes Mellitus Type 2 Renal/ Medical History: Denies: Hx Peritoneal Dialysis Psychiatric Medical History: Reports: Hx Anxiety, Hx Bipolar Disorder, Hx Depression, Hx Post Traumatic Stress Disorder Past Surgical History: Reports: Hx Breast Surgery - R breast duct excision, Hx Cardiac Catheterization - no stents placed, Hx Cholecystectomy Review of Systems - Review of Systems Constitutional: No symptoms reported EENT: No symptoms reported Cardiovascular: Chest pain Respiratory: Short of breath Gastrointestinal: Nausea Genitourinary: No symptoms reported Female Genitourinary: No symptoms reported Musculoskeletal: No symptoms reported Skin: No symptoms reported Hematologic/Lymphatic: No symptoms reported Neurological/Psychological: No symptoms reported Physical Exam - Vital signs Vitals: Temp Pulse Resp BP Pulse Ox 97.6 F 76 22 H 152/91 H 100 05/23/19 16:28 05/23/19 16:28 05/23/19 16:28 05/23/19 16:28 05/23/19 16:28 - Notes Notes: GENERAL: Well-appearing, well-nourished and in no acute distress. HEAD: Atraumatic, normocephalic. EYES: Pupils equal round and reactive to light, extraocular movements intact, sclera anicteric, conjunctiva are normal. ENT: Nares patent, oropharynx clear without exudates. Moist mucous membranes. NECK: Normal range of motion, supple without lymphadenopathy or JVD. LUNGS: Breath sounds clear to auscultation bilaterally and equal. No wheezes rales or rhonchi. HEART: Regular rate and rhythm without murmurs, rubs or gallops. ABDOMEN: Soft, nontender, normoactive bowel sounds. No guarding, no rebound. No masses appreciated. EXTREMITIES: Normal range of motion, no pitting or edema. No clubbing or cyanosis. NEUROLOGICAL: Cranial nerves II through XII grossly intact. Normal speech, normal gait. PSYCH: Normal mood, normal affect. SKIN: Warm, Dry, normal turgor, no rashes or lesions noted. Course - Re-evaluation Re-evalutation: The patient is here for chest pain which she says started yesterday morning. The patient says she had an [place] in 2017 in [place] but never had an intervention since her "heart artery was too small." The patient has had 2 negative Trops in the ER and her EKG and Chest Xray are unremarkable. The patient is PERC negative making PE unlikely. The patient is safe for outpatient follow up. 05/24/19 00:51 - Vital Signs Vital signs: Temp Pulse Resp BP Pulse Ox 97.6 F 76 22 H 152/91 H 100 05/23/19 16:28 05/23/19 16:28 05/23/19 16:28 05/23/19 16:28 05/23/19 16:28 - Laboratory Result Diagrams: 05/23/19 17:21 05/23/19 17:21 Laboratory results interpreted by me: 05/23/19 05/23/19 17:21 17:21 WBC 12.2 H MCH 26.2 L RDW 15.7 H Glucose 187 H - EKG Interpretation by Me EKG shows normal: Sinus rhythm, [place] - normal axis, ST-T Waves - T wave inversion in aVR and V1 Rate: Normal Rhythm: NSR Discharge - Discharge Clinical Impression: Chest pain Qualifiers: Chest pain type: unspecified Qualified Code(s): R07.9 - Chest pain, unspecified Condition: Stable Disposition: HOME, SELF-CARE Instructions: Chest Pain of Unclear Cause ([facility]) Additional Instructions: Follow up with your primary care doctor and your [facility] and tell them about your ER visits for chest pains. Referrals: [facility] [Primary Care Provider] - Follow up as needed
[2019-05-24 01:13] VITALS: BP 148/82
== END 2019-05-24 01:12 | disposition home or self-care (01) ==
LOC: ER 16:10
DX: R07.9 Chest pain, unspecified (principal); R11.0 Nausea; R06.02 Shortness of breath; I10 Essential (primary) hypertension; E11.9 Type 2 diabetes mellitus without complications; F17.200 Nicotine dependence, unspecified, uncomplicated; E78.00 Pure hypercholesterolemia, unspecified; F32.9 Major depressive disorder, single episode, unspecified; I25.2 Old myocardial infarction; Z79.899 Other long term (current) drug therapy; Z79.4 Long term (current) use of insulin; Z88.8 Allergy status to other drugs, medicaments and biological substances
CPT/HCPCS: 93005; 99285; 96374; 36415; 82550; 85025; 81025; 80053; 81001; 84484; 71046; 93010; J2270

== ENCOUNTER 2019-06-11 23:31 | Emergency (ER) | payer SELFPAY ==
[2019-06-11] MEDS ORDERED: ASPIRIN 81 MG TABLET, CHEWABLE ONE (23:45)
[2019-06-11] MEDS ORDERED: ASPIRIN 81 MG TABLET, CHEWABLE PO ONE (23:46)
--- NOTE | 2019-06-11 23:58 | ER Document Report ---
ED Medical Screen (RME) - General Chief Complaint: Chest Pain Stated Complaint: CHEST PAIN Time Seen by Provider: 06/11/19 23:42 Primary Care Provider: [facility]LL[facility] [Primary Care Provider] - Follow up as needed Notes: 33-year-old female with history of [place] and in the past who presents with left- sided chest pain that radiates into her left shoulder blade that started approximately few hours ago. Associated shortness of breath, nausea, lightheadedness. Patient is also complaining of possible infection to her right lower jaw. Regular rate and rhythm. Lungs clear to auscultation bilaterally. I have greeted and performed a rapid initial assessment of this patient. A comprehensive ED assessment and evaluation of the patient, analysis of test results and completion of the medical decision making process with be conducted by additional ED providers. TRAVEL OUTSIDE OF THE [place] IN LAST 30 DAYS: No - Related Data Allergies/Adverse Reactions: trazodone Allergy (Verified 05/23/19 16:27) metformin Adverse Reaction (Severe, Verified 05/23/19 16:27) V/D Past Medical History - Social History Frequency of alcohol use: None Family history: Reviewed & Not Pertinent - Past Medical History Cardiac Medical History: Reports: Hx Heart Attack - May 2017, Hx Hypercholesterolemia, Hx Hypertension Endocrine Medical History: Reports: Hx Diabetes Mellitus Type 2 Renal/ Medical History: Denies: Hx Peritoneal Dialysis Psychiatric Medical History: Reports: Hx Anxiety, Hx Bipolar Disorder, Hx Depression, Hx Post Traumatic Stress Disorder Past Surgical History: Reports: Hx Breast Surgery - R breast duct excision, Hx Cardiac Catheterization - no stents placed, Hx Cholecystectomy Physical Exam - Vital signs Vitals: Temp Pulse Resp BP Pulse Ox 98.0 F 76 22 H 165/93 H 100 06/11/19 23:42 06/11/19 23:42 06/11/19 23:42 06/11/19 23:42 06/11/19 23:42 Course - Vital Signs Vital signs: Temp Pulse Resp BP Pulse Ox 98.0 F 76 22 H 165/93 H 100 06/11/19 23:42 06/11/19 23:42 06/11/19 23:42 06/11/19 23:42 06/11/19 23:42 Doctor's Discharge - Discharge [facility] [Primary [facility]] - Follow up as needed
[2019-06-12 00:02] LABS: ABSOLUTE BASOPHILS # (AUTO) 0.1 10^3/uL (0.0-0.2); ABSOLUTE EOSINOPHILS # (AUTO) 0.5 10^3/uL (0.0-0.6); ABSOLUTE LYMPHOCYTES (AUTO) 3.8 10^3/uL (0.5-4.7); ABSOLUTE MONOCYTES (AUTO) 0.7 10^3/uL (0.1-1.4); ABSOLUTE NEUT (AUTO) 9.9 10^3/uL (1.7-8.2); BASOPHILS % (AUTO) 0.9 % (0-2); EOSINOPHILS % (AUTO) 3.1 % (0-6); HEMATOCRIT 43.4 % (36.0-47.0); HEMOGLOBIN 14.5 g/dL (12.0-15.5); LYMPHOCYTES % (AUTO) 25.3 % (13-45); MEAN CORPUSCULAR HEMOGLOBIN 26.7 pg (27.0-33.4); MEAN CORPUSCULAR HGB CONC 33.3 g/dL (32.0-36.0); MEAN CORPUSCULAR VOLUME 80 fl (80-97); MONOCYTES % (AUTO) 4.9 % (3-13); PLATELET COUNT 288 10^3/uL (150-450); RED BLOOD COUNT 5.41 10^6/uL (3.72-5.28); RED CELL DISTRIBUTION WIDTH 15.6 % (11.5-14.0); SEGMENTED NEUTROPHILS % (AUTO) 65.8 % (42-78); TOTAL CELLS COUNTED % (AUTO) 100 %; WHITE BLOOD COUNT 15.1 10^3/uL (4.0-10.5)
[2019-06-12 00:27] LABS: ALBUMIN 4.4 g/dL (3.5-5.0); ALKALINE PHOSPHATASE 96 U/L (38-126); ANION GAP 12 (5-19); ASPARTATE AMINO TRANSFERASE 18 U/L (14-36); BILIRUBIN,DIRECT 0.2 mg/dL (0.0-0.4); BILIRUBIN,TOTAL 0.3 mg/dL (0.2-1.3); BLOOD UREA NITROGEN 11 mg/dL (7-20); CALCIUM 9.7 mg/dL (8.4-10.2); CARBON DIOXIDE 24 mmol/L (22-30); CHLORIDE 103 mmol/L (98-107); GLUCOSE 130 mg/dL (75-110); POTASSIUM 4.9 mmol/L (3.6-5.0); TOTAL PROTEIN 7.5 g/dL (6.3-8.2)
--- NOTE | 2019-06-12 00:39 | RADIOLOGY REPORT (SQ) ---
EXAM DESCRIPTION: XR CHEST 2 VIEWS COMPLETED DATE/TME: 06/11/2019 23:52 CLINICAL HISTORY: 33 years, Female, chest pain COMPARISON: 05/23/2019 chest NUMBER OF VIEWS: 2 TECHNIQUE: 2 views of the chest LIMITATIONS: None. FINDINGS: The heart size is normal. The lungs are clear. No pneumothorax IMPRESSION: Negative chest copyright 2010 [employer]- All Rights Reserved
[2019-06-12] MEDS ORDERED: KETOROLAC TROMETHAMINE INJ/PF 30 MG/1 ML SDV IV ONE (00:59)
[2019-06-12] MEDS ORDERED: AMOXICILLIN TRIHYDRATE 500 MG CAPSULE PO ONE (01:00)
[2019-06-12] MEDS: NITROGLYCERIN 0.4 MG/TAB 25 TAB/BOTTLE SL PRN ×3 (01:20→01:34)
[2019-06-12] MEDS ORDERED: LORAZEPAM INJ 2 MG/1 ML VIAL IV ONE (02:31)
[2019-06-12] MEDS ORDERED: HYDROMORPHONE HCL INJ/PF 2 MG/ML AMPULE IV ONE (02:32)
[2019-06-12] MEDS ORDERED: ONDANSETRON HCL INJ/PF 4 MG/2 ML SDV IV ONE (03:10)
--- NOTE | 2019-06-12 04:42 | ER Document Report ---
ED General - General Chief Complaint: Chest Pain Stated Complaint: CHEST PAIN Time Seen by Provider: 06/11/19 23:42 Primary Care Provider: [facility] [Primary Care Provider] - Follow up as needed Notes: This 33-year-old woman presents with a complaint of chest pain. Apparently she has a history of CAD, prior [place] and anginal episodes. She states that she had small vessel disease no stenting to be performed and she was not a candidate for surgical intervention. States that her doctor talked about putting her on isosorbide, she has no nitroglycerin. She describes the pain as a pressure in her left chest radiating to left arm. She also complains of a right lower jaw tooth which is giving her pain there is swelling in the lower jaw area. She denies fever TRAVEL OUTSIDE OF THE U[place] IN LAST 30 DAYS: No - Related Data Allergies/Adverse Reactions: trazodone Allergy (Verified 05/23/19 16:27) metformin Adverse Reaction (Severe, Verified 05/23/19 16:27) V/D Past Medical History - Social History Smoking Status: Current Every Day Smoker Frequency of alcohol use: None Family History: Reviewed & Not Pertinent, CAD, DM, Hyperlipidemia, Hypertension, Other - CKD Patient has suicidal ideation: No Patient has homicidal ideation: No - Past Medical History Cardiac Medical History: Reports: Hx Heart Attack - May 2017, Hx Hypercholesterolemia, Hx Hypertension Endocrine Medical History: Reports: Hx Diabetes Mellitus Type 2 Renal/ Medical History: Denies: Hx Peritoneal Dialysis Psychiatric Medical History: Reports: Hx Anxiety, Hx Bipolar Disorder, Hx Depression, Hx Post Traumatic Stress Disorder Past Surgical History: Reports: Hx Breast Surgery - R breast duct excision, Hx Cardiac Catheterization - no stents placed, Hx Cholecystectomy Review of Systems - Review of Systems Notes: Constitutional: Negative for fever. HENT: + Right lower jaw pain, negative for sore throat. Eyes: Negative for visual changes. Cardiovascular: + Chest pain. Respiratory: Negative for shortness of breath. Gastrointestinal: Negative for abdominal pain, vomiting or diarrhea. Genitourinary: Negative for dysuria. Musculoskeletal: Negative for back pain. Skin: Negative for rash. Neurological: Negative for headaches, weakness or numbness. 10 point ROS negative except as marked above and in HPI. Physical Exam - Vital signs Vitals: Temp Pulse Resp BP Pulse Ox 98.0 F 76 22 H 165/93 H 100 06/11/19 23:42 06/11/19 23:42 06/11/19 23:42 06/11/19 23:42 06/11/19 23:42 - Notes Notes: PHYSICAL EXAMINATION: Physical Exam: General: Well-nourished well-developed female in no acute distress HEENT: NC/AT, pupils equal round and reactive to light, MM moist,nares clear, + swelling around a decayed tooth in the right lower jaw third molar, Neck: supple, no adenopathy, no masses. Lungs: clear, no wheezing, no rales no rhonchi CVS: Regular rate and rhythm no murmur gallop or rub Abdomen: Soft active nontender, no masses, no hepatosplenomegaly Ext: No edema clubbing or cyanosis. Neuro: Alert and responsive, moving all 4 extremities on command, cranial nerves intact. Skin: Intact no open lesions, no rash PSYCH: Normal mood, normal affect. Course - Re-evaluation Re-evalutation: 06/12/19 04:41 Patient with a complaint of chest pain, EKG reveals normal sinus rhythm with a rate of 69, 2 sets of enzymes were performed both of which were negative, patient had relief of pain after receiving morphine. Does appear to be a muscle skeletal component to her chest pain. She also has a dental infection and she is diabetic. Patient is given amoxicillin 500 mg 3 times daily x10 days, Naprosyn 500 mg p.o. twice daily and I encouraged her to follow-up with her doctors for ongoing management. Patient acknowledges understanding of this plan and is in agreement. - Vital Signs Vital signs: Temp Pulse Resp BP Pulse Ox 98.0 F 77 18 127/71 H 100 06/11/19 23:42 06/12/19 01:33 06/12/19 03:01 06/12/19 03:00 06/12/19 03:01 - Laboratory Result Diagrams: 06/11/19 23:50 06/11/19 23:50 Laboratory results interpreted by me: 06/11/19 06/11/19 23:50 23:50 WBC 15.1 H RBC 5.41 H MCH 26.7 L RDW 15.6 H Absolute Neuts (auto) 9.9 H Glucose 130 H 06/12/19 04:42 I have reviewed laboratory data and used this information for the treatment decisions regarding the patient. - Diagnostic Test Radiology reviewed: Image reviewed, Reports reviewed - Chest x-ray: No acute fi ndings - EKG Interpretation by Me EKG shows normal: Sinus rhythm - Rate 69, no acute ST or T wave abnormalities noted Discharge - Discharge Clinical Impression: ATYPICAL CHEST PAIN, Dental infection, Diabetes mellitus type 2 in obese Disposition: HOME, SELF-CARE Instructions: Chest Pain of Unclear Cause ([facility]) Additional Instructions: Please take the antibiotic as prescribed amoxicillin, use Naprosyn for pain Follow-up with your doctors for continued treatment. Referrals: [facility] [Primary Care Provider] - Follow up as needed
[2019-06-12 05:10] VITALS: BP 128/75
--- NOTE | 2019-06-12 20:18 | EKG REPORT ---
SEVERITY:- NORMAL ECG - SINUS RHYTHM : Confirmed by: Charito Quinonez MD 12-Jun-2019 20:17:15
== END 2019-06-12 05:13 | disposition home or self-care (01) ==
LOC: ER 23:31
DX: R07.9 Chest pain, unspecified (principal); K04.7 Periapical abscess without sinus; E11.9 Type 2 diabetes mellitus without complications; E66.9 Obesity, unspecified; M79.602 Pain in left arm; R68.84 Jaw pain; I25.10 Atherosclerotic heart disease of native coronary artery without angina pectoris; I25.2 Old myocardial infarction; F17.200 Nicotine dependence, unspecified, uncomplicated
CPT/HCPCS: 93005; 99285; 96374; 96375; 36415; 85025; 80053; 84484; 71046; 93010; J1885; J1170; J2060; J2405

== ENCOUNTER 2019-08-07 07:14 | Emergency (ER) | payer SELFPAY ==
[2019-08-07] MEDS ORDERED: ASPIRIN 81 MG TABLET, CHEWABLE ONE (09:05)
[2019-08-07] MEDS ORDERED: ASPIRIN 81 MG TABLET, CHEWABLE PO ONE (09:10)
[2019-08-07 09:11] LABS: ABSOLUTE BASOPHILS # (AUTO) 0.1 10^3/uL (0.0-0.2); ABSOLUTE EOSINOPHILS # (AUTO) 0.4 10^3/uL (0.0-0.6); ABSOLUTE LYMPHOCYTES (AUTO) 4.2 10^3/uL (0.5-4.7); ABSOLUTE MONOCYTES (AUTO) 0.5 10^3/uL (0.1-1.4); ABSOLUTE NEUT (AUTO) 4.9 10^3/uL (1.7-8.2); BASOPHILS % (AUTO) 0.9 % (0-2); EOSINOPHILS % (AUTO) 3.6 % (0-6); HEMATOCRIT 39.9 % (36.0-47.0); HEMOGLOBIN 13.4 g/dL (12.0-15.5); LYMPHOCYTES % (AUTO) 41.3 % (13-45); MEAN CORPUSCULAR HGB CONC 33.5 g/dL (32.0-36.0); MEAN CORPUSCULAR VOLUME 81 fl (80-97); MONOCYTES % (AUTO) 5.3 % (3-13); PLATELET COUNT 298 10^3/uL (150-450); RED BLOOD COUNT 4.94 10^6/uL (3.72-5.28); RED CELL DISTRIBUTION WIDTH 15.3 % (11.5-14.0); SEGMENTED NEUTROPHILS % (AUTO) 48.9 % (42-78); TOTAL CELLS COUNTED % (AUTO) 100 %; WHITE BLOOD COUNT 10.1 10^3/uL (4.0-10.5)
[2019-08-07 09:21] LABS: ALBUMIN 4.3 g/dL (3.5-5.0); ALKALINE PHOSPHATASE 93 U/L (38-126); ANION GAP 8 (5-19); ASPARTATE AMINO TRANSFERASE 31 U/L (14-36); BILIRUBIN,DIRECT 0.1 mg/dL (0.0-0.4); BILIRUBIN,TOTAL 0.5 mg/dL (0.2-1.3); BLOOD UREA NITROGEN 10 mg/dL (7-20); CALCIUM 8.9 mg/dL (8.4-10.2); CARBON DIOXIDE 27 mmol/L (22-30); CHLORIDE 102 mmol/L (98-107); GLUCOSE 161 mg/dL (75-110); POTASSIUM 4.6 mmol/L (3.6-5.0); TOTAL PROTEIN 7.2 g/dL (6.3-8.2)
[2019-08-07 09:25] LABS: APPEARANCE,URINE CLEAR; BILIRUBIN,URINE NEGATIVE (NEGATIVE); COLOR,URINE STRAW; GLUCOSE, URINE NEGATIVE (NEGATIVE); KETONES,URINE NEGATIVE (NEGATIVE); LEUKOCYTE ESTERASE,URINE NEGATIVE (NEGATIVE); NITRITE,URINE NEGATIVE (NEGATIVE); PROTEIN,URINE NEGATIVE (NEGATIVE); URINE SPECIFIC GRAVITY 1.006; UROBILINOGEN,URINE NEGATIVE mg/dL (<2.0)
[2019-08-07 09:40] LABS: URINE AMPHETAMINES SCREEN NEGATIVE; URINE BARBITURATES SCREEN NEGATIVE; URINE BENZODIAZEPINES SCREEN NEGATIVE; URINE COCAINE SCREEN NEGATIVE; URINE MARIJUANA (THC) SCREEN NEGATIVE; URINE METHADONE SCREEN NEGATIVE; URINE PHENCYCLIDINE SCREEN NEGATIVE
--- NOTE | 2019-08-07 09:56 | RADIOLOGY REPORT (SQ) ---
EXAM DESCRIPTION: CHEST SINGLE VIEW COMPLETED DATE/TIME: 08/07/2019 9:36 am REASON FOR STUDY: chest pain COMPARISON: Chest films 06/12/2019, 05/23/2019, 03/28/2019 CT chest 04/11/2018 EXAM PARAMETERS: NUMBER OF VIEWS: One view. TECHNIQUE: Single frontal radiographic view of the chest acquired. RADIATION DOSE: NA LIMITATIONS: Lordotic positioning FINDINGS: LUNGS AND PLEURA: No opacities, masses or pneumothorax. No pleural effusion. MEDIASTINUM AND HILAR STRUCTURES: No masses. Contour normal. HEART AND VASCULAR STRUCTURES: Heart normal in size. Normal vasculature. BONES: No acute findings. HARDWARE: None in the chest. OTHER: No other significant finding. IMPRESSION: NO ACUTE RADIOGRAPHIC FINDING IN THE CHEST. TECHNICAL DOCUMENTATION: JOB ID: [id number] [employer]- All Rights Reserved Reading location - IP/workstation name: [email or web address]
[2019-08-07] MEDS ORDERED: METOPROLOL SUCCINATE 50 MG TAB.SR.24H PO ONE (10:11)
[2019-08-07] MEDS ORDERED: HYDROMORPHONE HCL INJ/PF 2 MG/ML AMPULE IV ONE (10:36)
--- NOTE | 2019-08-07 11:10 | ER Document Report ---
ED Cardiac - General Chief Complaint: Chest Pain Stated Complaint: CHEST PAIN/ARM PAIN/LUMP ON BREAST Time Seen by Provider: 08/07/19 10:11 Information source: Patient TRAVEL OUTSIDE OF THE [place] IN LAST 30 DAYS: No - HPI Notes: Patient presents with chest pain. This been going on for approximately 2 days. It is intermittent. Nothing makes it better or worse. It is moderate to severe. It is located in the center of her chest. She has no significant recent cough cold or congestion. She does states she has felt a lump in her left breast and wonders if this may be the cause of the pain. She also states she is been under a lot of stress and having anxiety. She is also felt short of breath and had some nausea. She states that she was seen for cardiac disease in the [facility] she was told that she had 70% blockage of a coronary artery but that her arteries were too small to stent. She states that since she has been in [place] she has had 2 stress tests and they both have been negative. 1 of those is within the last year. She has had several previous visits here which have been unremarkable for cardiac evaluations. Patient's pain has been sharp and in the center of the chest without significant radiation. - Related Data Allergies/Adverse Reactions: trazodone Allergy (Verified 05/23/19 16:27) metformin Adverse Reaction (Severe, Verified 05/23/19 16:27) V/D Past Medical History - General Information source: Patient - Social History Smoking Status: Current Every Day Smoker Chew tobacco use (# tins/day): No Frequency of alcohol use: None Drug Abuse: None Family History: Reviewed & Not Pertinent, CAD, DM, Hyperlipidemia, Hypertension, Other - CKD Patient has suicidal ideation: No Patient has homicidal ideation: No - Past Medical History Cardiac Medical History: Reports: Hx Heart Attack - May 2017, Hx Hypercholesterolemia, Hx Hypertension Endocrine Medical History: Reports: Hx Diabetes Mellitus Type 2 Renal/ Medical History: Denies: Hx Peritoneal Dialysis Psychiatric Medical History: Reports: Hx Anxiety, Hx Bipolar Disorder, Hx Depression, Hx Post Traumatic Stress Disorder Past Surgical History: Reports: Hx Breast Surgery - R breast duct excision, Hx Cardiac Catheterization - no stents placed, Hx Cholecystectomy Review of Systems - Review of Systems Constitutional: denies: Chills, Fever Cardiovascular: Chest pain. denies: Palpitations Respiratory: Short of breath. denies: Cough -: Yes All other systems reviewed and negative Physical Exam - Vital signs Vitals: Temp Pulse Resp BP Pulse Ox 98.0 F 76 22 H 164/91 H 99 08/07/19 07:22 08/07/19 07:22 08/07/19 07:22 08/07/19 07:22 08/07/19 07:22 Interpretation: Hypertensive - General General appearance: Appears well, Alert - HEENT Head: Normocephalic, Atraumatic Eyes: Normal Pupils: PERRL - Respiratory Respiratory status: No respiratory distress Chest status: Nontender Breath sounds: Normal Chest palpation: Normal - Cardiovascular Rhythm: Regular Heart sounds: Normal auscultation Murmur: No - Abdominal Inspection: Normal Distension: No distension Bowel sounds: Normal Tenderness: Nontender Organomegaly: No organomegaly - Back Back: Normal, Nontender - Extremities General upper extremity: Normal inspection, Nontender, Normal color, Normal ROM, Normal temperature General lower extremity: Normal inspection, Nontender, Normal color, Normal ROM, Normal temperature, Normal weight bearing. No: Joan's sign - Neurological Neuro grossly intact: Yes Cognition: Normal Orientation: AAOx4 [place] Coma Scale Eye Opening: Spontaneous Kenneth Coma Scale Verbal: Oriented Kenneth Coma Scale Motor: Obeys Commands Kenneth Coma Scale Total: 15 Speech: Normal Motor strength normal: LUE, RUE, LLE, RLE Sensory: Normal - Psychological Associated symptoms: Normal affect, Normal mood - Skin Skin Temperature: Warm Skin Moisture: Dry Skin Color: Normal Course - Re-evaluation Re-evalutation: 08/07/19 11:07 Patient presents with chest pain. I do not find any evidence of coronary artery disease at this time. The patient's description of the pain does not seem consistent with coronary artery disease. She has negative cardiac enzymes. She has a normal EKG. She also has an unremarkable x-ray. I feel this is most likely secondary to anxiety and explained this to the patient. I have stressed the importance of following up with an EMBEDDED SYSTEMS SOFTWARE ENGINEER or primary doctor for the breast lump and having this further investigated with possibly a mammogram or ultrasound. - Vital Signs Vital signs: Temp Pulse Resp BP Pulse Ox 98.0 F 76 23 H 157/90 H 100 08/07/19 07:22 08/07/19 07:22 08/07/19 09:01 08/07/19 09:01 08/07/19 09:01 - Laboratory Result Diagrams: 08/07/19 08:15 08/07/19 08:15 Laboratory results interpreted by me: 08/07/19 08/07/19 08:15 08:15 RDW 15.3 H Glucose 161 H - Diagnostic Test Radiology reviewed: Image reviewed, Reports reviewed - EKG Interpretation by Me EKG shows normal: Sinus rhythm Rate: Normal - 69 Rhythm: NSR Drew/QRS: No: Right axis deviation, Left axis deviation Discharge - Discharge Clinical Impression: Chest pain Qualifiers: Chest pain type: unspecified Qualified Code(s): R07.9 - Chest pain, unspecified Condition: Stable Disposition: HOME, SELF-CARE Instructions: Chest Pain of Unclear Cause ([facility]), Oral Narcotic Medication ([facility]) Additional Instructions: Please call your primary care doctor as soon as possible to arrange follow-up Prescriptions: Hydrocodone/Acetaminophen [[place] 5-325 mg Tablet] 1 tab PO Q6 PRN 3 Days #10 tablet PRN Reason: Forms: Return to Work Referrals: [facility] [Provider Group] - Follow up as needed
--- NOTE | 2019-08-07 11:38 | EKG REPORT ---
SEVERITY:- NORMAL ECG - SINUS RHYTHM : Confirmed by: Frannie Bonilla 07-Aug-2019 11:37:35
[2019-08-07 12:17] VITALS: BP 179/106
== END 2019-08-07 12:17 | disposition home or self-care (01) ==
LOC: ER 07:14
DX: R07.9 Chest pain, unspecified (principal); R06.02 Shortness of breath; M79.603 Pain in arm, unspecified; F17.200 Nicotine dependence, unspecified, uncomplicated; I25.2 Old myocardial infarction; E78.00 Pure hypercholesterolemia, unspecified; E11.9 Type 2 diabetes mellitus without complications; Z90.49 Acquired absence of other specified parts of digestive tract; Z88.6 Allergy status to analgesic agent
CPT/HCPCS: 93005; 36415; 85025; 80053; 81001; 84484; 80307; 71045; 93010; J1170; 96374; 99285

== ENCOUNTER 2019-08-26 20:22 | Emergency (ER) | payer SELFPAY ==
[2019-08-26] MEDS ORDERED: ASPIRIN 81 MG TABLET, CHEWABLE PO ONE ×2 (21:15→23:54)
--- NOTE | 2019-08-26 21:19 | ER Document Report ---
ED Medical Screen (RME) - General Chief Complaint: Chest Pain Stated Complaint: CHEST PAINS Time Seen by Provider: 08/26/19 21:11 Mode of Arrival: Ambulatory Information source: Patient Notes: 33-year-old female with history of DC 2 years ago presents emergency department with chest pain started this afternoon. She denies other symptoms such as nausea vomiting. Patient is short of breath when talking. She reports she had an DC because "everything is small on one side". I have greeted and performed a rapid initial assessment of this patient. A comprehensive ED assessment and evaluation of the patient, analysis of test results and completion of the medical decision making process will be conducted by additional ED providers. TRAVEL OUTSIDE OF THE U[place] IN LAST 30 DAYS: No - Related Data Allergies/Adverse Reactions: trazodone Allergy (Verified 08/26/19 21:09) metformin Adverse Reaction (Severe, Verified 08/26/19 21:09) V/D Past Medical History - Social History Frequency of alcohol use: None Drug Abuse: None Family history: Reviewed & Not Pertinent - Past Medical History Cardiac Medical History: Reports: Hx Heart Attack - May 2017, Hx Hyper cholesterolemia, Hx Hypertension Endocrine Medical History: Reports: Hx Diabetes Mellitus Type 2 Renal/ Medical History: Denies: Hx Peritoneal Dialysis Psychiatric Medical History: Reports: Hx Anxiety, Hx Bipolar Disorder, Hx Depression, Hx Post Traumatic Stress Disorder Past Surgical History: Reports: Hx Breast Surgery - R breast duct excision, Hx Cardiac Catheterization - no stents placed, Hx Cholecystectomy Physical Exam - Vital signs Vitals: Temp Pulse Resp BP Pulse Ox 98.3 F 72 24 H 149/83 H 98 08/26/19 20:36 08/26/19 20:36 08/26/19 20:36 08/26/19 20:36 08/26/19 20:36 Course - Vital Signs Vital signs: Temp Pulse Resp BP Pulse Ox 98.3 F 72 24 H 149/83 H 98 08/26/19 20:36 08/26/19 20:36 08/26/19 20:36 08/26/19 20:36 08/26/19 20:36
--- NOTE | 2019-08-26 21:31 | EKG REPORT ---
SEVERITY:- NORMAL ECG - SINUS RHYTHM : Confirmed by: Pepito Hall MD 26-Aug-2019 21:31:05
[2019-08-26 21:45] LABS: ABSOLUTE BASOPHILS # (AUTO) 0.1 10^3/uL (0.0-0.2); ABSOLUTE EOSINOPHILS # (AUTO) 0.3 10^3/uL (0.0-0.6); ABSOLUTE LYMPHOCYTES (AUTO) 3.8 10^3/uL (0.5-4.7); ABSOLUTE MONOCYTES (AUTO) 0.6 10^3/uL (0.1-1.4); ABSOLUTE NEUT (AUTO) 5.8 10^3/uL (1.7-8.2); BASOPHILS % (AUTO) 1.2 % (0-2); EOSINOPHILS % (AUTO) 2.7 % (0-6); HEMATOCRIT 41.5 % (36.0-47.0); LYMPHOCYTES % (AUTO) 36.1 % (13-45); MEAN CORPUSCULAR HGB CONC 33.8 g/dL (32.0-36.0); MEAN CORPUSCULAR VOLUME 80 fl (80-97); MONOCYTES % (AUTO) 5.5 % (3-13); PLATELET COUNT 280 10^3/uL (150-450); RED BLOOD COUNT 5.19 10^6/uL (3.72-5.28); SEGMENTED NEUTROPHILS % (AUTO) 54.5 % (42-78); TOTAL CELLS COUNTED % (AUTO) 100 %; WHITE BLOOD COUNT 10.5 10^3/uL (4.0-10.5)
[2019-08-26 21:48] LABS: APPEARANCE,URINE CLEAR; BILIRUBIN,URINE NEGATIVE (NEGATIVE); COLOR,URINE STRAW; GLUCOSE, URINE NEGATIVE (NEGATIVE); KETONES,URINE NEGATIVE (NEGATIVE); LEUKOCYTE ESTERASE,URINE NEGATIVE (NEGATIVE); NITRITE,URINE NEGATIVE (NEGATIVE); PROTEIN,URINE NEGATIVE (NEGATIVE); URINE SPECIFIC GRAVITY 1.005; UROBILINOGEN,URINE NEGATIVE mg/dL (<2.0)
[2019-08-26 21:54] LABS: ALBUMIN 4.7 g/dL (3.5-5.0); ALKALINE PHOSPHATASE 93 U/L (38-126); ANION GAP 11 (5-19); ASPARTATE AMINO TRANSFERASE 20 U/L (14-36); BILIRUBIN,DIRECT 0.3 mg/dL (0.0-0.4); BILIRUBIN,TOTAL 0.3 mg/dL (0.2-1.3); BLOOD UREA NITROGEN 10 mg/dL (7-20); CALCIUM 9.7 mg/dL (8.4-10.2); CARBON DIOXIDE 28 mmol/L (22-30); CHLORIDE 101 mmol/L (98-107); GLUCOSE 153 mg/dL (75-110); POTASSIUM 4.4 mmol/L (3.6-5.0); TOTAL PROTEIN 7.9 g/dL (6.3-8.2)
--- NOTE | 2019-08-26 21:55 | RADIOLOGY REPORT (SQ) ---
XR CHEST 2 VIEWS CLINICAL STATEMENT: cp COMPARISON: 08/07/2019 FINDINGS: Cardiomediastinal silhouette is within normal limits. There is no focal lung consolidation or pleural effusion. No evidence of pulmonary edema or pneumothorax. IMPRESSION: No acute cardiopulmonary disease.
[2019-08-26 22:04] LABS: URINE AMPHETAMINES SCREEN NEGATIVE; URINE BARBITURATES SCREEN NEGATIVE; URINE BENZODIAZEPINES SCREEN NEGATIVE; URINE COCAINE SCREEN NEGATIVE; URINE MARIJUANA (THC) SCREEN NEGATIVE; URINE METHADONE SCREEN NEGATIVE; URINE PHENCYCLIDINE SCREEN NEGATIVE
[2019-08-26] MEDS ORDERED: MORPHINE SULFATE 10 MG/ML INJ IV ONE (23:53)
[2019-08-26] MEDS ORDERED: LORAZEPAM INJ 2 MG/1 ML VIAL IV ONE (23:53)
[2019-08-26] MEDS ORDERED: NITROGLYCERIN 0.4 MG/TAB 25 TAB/BOTTLE SL PRN (23:54)
--- NOTE | 2019-08-27 00:08 | ER Document Report ---
ED General - General Chief Complaint: Chest Pain Stated Complaint: CHEST PAINS Time Seen by Provider: 08/26/19 21:11 Mode of Arrival: Ambulatory Notes: 33-year-old woman presents to the emergency department with a complaint of chest pain. States that she has a 70% blockage in 1 of her coronary vessels, states the vessels were too small for catheterization and she has been given nitroglycerin and aspirin for management. She states that the nitroglycerin has and she did not take anything for pain tonight presently she has chest pain which she rates 7/10. She also has nausea and radiation of pain into the left shoulder and arm. TRAVEL OUTSIDE OF THE [place] IN LAST 30 DAYS: No - Related Data Allergies/Adverse Reactions: trazodone Allergy (Verified 08/26/19 21:09) metformin Adverse Reaction (Severe, Verified 08/26/19 21:09) V/D Past Medical History - General Information source: Patient - Social History Smoking Status: Current Every Day Smoker Frequency of alcohol use: None Drug Abuse: None Family History: Reviewed & Not Pertinent, CAD, DM, Hyperlipidemia, Hypertension, Other - CKD Patient has suicidal ideation: No Patient has homicidal ideation: No - Past Medical History Cardiac Medical History: Reports: Hx Heart Attack - May 2017, Hx Hypercholesterolemia, Hx Hypertension Endocrine Medical History: Reports: Hx Diabetes Mellitus Type 2 Renal/ Medical History: Denies: Hx Peritoneal Dialysis Psychiatric Medical History: Reports: Hx Anxiety, Hx Bipolar Disorder, Hx Depre ssion, Hx Post Traumatic Stress Disorder Past Surgical History: Reports: Hx Breast Surgery - R breast duct excision, Hx Cardiac Catheterization - no stents placed, Hx Cholecystectomy Review of Systems - Review of Systems Notes: Constitutional: Negative for fever. HENT: Negative for sore throat. Eyes: Negative for visual changes. Cardiovascular: 1954 chest pain. Respiratory: Negative for shortness of breath. Gastrointestinal: Negative for abdominal pain, vomiting or diarrhea. Genitourinary: Negative for dysuria. Musculoskeletal: Negative for back pain. Skin: Negative for rash. Neurological: Negative for headaches, weakness or numbness. Psychiatric: + Anxiety 10 point ROS negative except as marked above and in HPI. Physical Exam - Vital signs Vitals: Temp Pulse Resp BP Pulse Ox 98.3 F 72 24 H 149/83 H 98 08/26/19 20:36 08/26/19 20:36 08/26/19 20:36 08/26/19 20:36 08/26/19 20:36 - Notes Notes: PHYSICAL EXAMINATION: Physical Exam: General: Well-nourished well-developed 83-year-old woman complaining of chest pain and tightness in her left upper trapezius HEENT: NC/AT, pupils equal round and reactive to light, MM moist,nares clear, oropharynx clear, airway patent Neck: supple, no adenopathy, no masses. Good range of motion Lungs: clear, no wheezing, no rales no rhonchi CVS: Regular rate and rhythm no murmur gallop or rub Abdomen: Soft, active, nontender, no masses, no hepatosplenomegaly Ext: No edema, clubbing or cyanosis. Neuro: Alert and responsive, moving all 4 extremities on command, cranial nerves intact, no focal findings Skin: Intact no open lesions, no rash PSYCH: Anxious, flat affect, denies suicidal or homicidal ideation. Course - Re-evaluation Re-evalutation: 08/27/19 01:21 EKG and labs were all negative, repeat troponin also negative. Medication was given for the patient's symptoms, she notes that the lorazepam helped 1 ADLs and in the past she has had problems with anxiety and somatic symptoms. 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 - Vital Signs Vital signs: Temp Pulse Resp BP Pulse Ox 98.3 F 72 14 137/63 H 98 08/26/19 20:36 08/26/19 20:36 08/27/19 01:01 08/27/19 01:01 08/27/19 01:01 - Laboratory Result Diagrams: 08/26/19 21:20 08/26/19 21:20 Laboratory results interpreted by me: 08/26/19 08/26/19 08/26/19 21:20 21:20 23:23 RDW 15.0 H Glucose 153 H POC Glucose 122 H - Diagnostic Test Radiology reviewed: Image reviewed, Reports reviewed - Chest x-ray: No acute infiltrate or effusions, cardiac silhouette normal. - EKG Interpretation by Hi EKG shows normal: Sinus rhythm - Normal sinus rhythm, rate [address] or T wave abnormalities, interpretation normal electrocardiogram. Rate: Normal Rhythm: NSR Discharge - Discharge Clinical Impression: Atypical chest pain, Anxiety Disposition: HOME, SELF-CARE Instructions: Chest Pain of Unclear Cause ([facility]), Anxiety ([facility]) Additional Instructions: You were diagnosed with atypical chest pain and anxiety in the emergency department tonight. You are given a prescription for lorazepam 1 mg, #10 tablets, please follow-up with your physician and duplicating machine operator. HOME CARE INSTRUCTIONS & INFORMATION: Thank you for choosing us for your medical needs. We hope you're satisfied with the care you received. After you leave, you must properly care for your problem and, at the same time, observe its progress. Any condition can change. Some illnesses can change rapidly over hours or days. If your condition worsens, return to the Emergency Department or see your physician promptly. ABOUT YOUR X-RAYS AND EKG'S: If you had an EKG or X-rays taken, they have been read by the Emergency Physician. The X-rays and EKG's will also be read by a Radiologist or Junior Paralegal within 24 hours. If discrepancies are noted, you will be notified by telephone. Please be certain the ED has a correct telephone number & address where you can be reached. Also, realize that some fractures or abnormalities do not show up on initial X-rays. If your symptoms continue, see your physician. ABOUT YOUR LABORATORY TEST: If you had laboratory tests, the results have been reviewed by the Emergency Physician. Some test results (for example cultures) may not be available for several days. You will be contacted if any test result shows you need additional treatment. Please be certain the ED has a correct telephone number and address where you can be reached. ABOUT YOUR MEDICATIONS: You will receive instructions on how to take your medicine on the prescription label you receive. Additional information may be provided by the Pharmacy. If you have questions afterwards, call the ED for clarification or further instructions. Some prescribed medications may cause drowsiness. Do not perform tasks such as driving a car or operating machinery without consulting your Pharmacist. If you feel you need a refill of pain medication, your condition will need re-evaluation. Please do not call for a refill of any medication. ABOUT YOUR SIGNATURE: Signature of this document acknowledges to followin. Understanding that you received emergency treatment and that you may be released before al medical problems are known or treated. Please be certain the ED has a correct phone number & address where you can be reached. 2. Acknowledgement that you will arrange for follow-up care as recommended. 3. Authorization for the Emergency Physician to provide information to your follow-up Physician in order to maximize your care. AT ANY TIME, IF YOUR SYMPTOMS CHANGE SIGNIFICANTLY OR WORSEN OR YOU DEVELOP NEW SYMPTOMS, RETURN TO THE EMERGENCY DEPARTMENT IMMEDIATELY FOR RE-EVALUATION. OUR GOAL IS TO PROVIDE EXCELLENT MEDICAL CARE! WE HOPE THAT WE HAVE MET YOUR EXPECTATIONS DURING YOUR EMERGENCY DEPARTMENT VISIT AND THAT YOU FEEL YOU HAVE RECEIVED EXCELLENT CARE! Prescriptions: Lorazepam [Ativan 1 mg Tablet] 1 mg PO Q8 PRN #10 tab PRN Reason:
[2019-08-27] MEDS ORDERED: ONDANSETRON HCL INJ/PF 4 MG/2 ML SDV IV ONE (00:50)
[2019-08-27 01:12] VITALS: BP 137/63
== END 2019-08-27 01:48 | disposition home or self-care (01) ==
LOC: ER 20:22
DX: F41.9 Anxiety disorder, unspecified (principal); R07.89 Other chest pain; R11.0 Nausea; I10 Essential (primary) hypertension; I25.2 Old myocardial infarction; E11.9 Type 2 diabetes mellitus without complications; F17.200 Nicotine dependence, unspecified, uncomplicated; Z79.82 Long term (current) use of aspirin; Z88.8 Allergy status to other drugs, medicaments and biological substances
CPT/HCPCS: 93005; 99285; 96374; 96375; 36415; 82962; 85025; 81025; 80053; 81001; 84484; 80307; 71046; 93010; J2270; J2060; J2405

== ENCOUNTER 2019-09-15 01:54 | Emergency (ER) | payer SELFPAY ==
[2019-09-15] MEDS ORDERED: PROMETHAZINE HCL 25 MG TABLET PO ONE (02:29)
[2019-09-15] MEDS ORDERED: LORAZEPAM 1 MG TABLET PO ONE ×2 (02:29→05:16)
--- NOTE | 2019-09-15 02:32 | ER Document Report ---
ED General - General Chief Complaint: Breathing Difficulty Stated Complaint: RESPIRATORY ISSUES Time Seen by Provider: 09/15/19 02:16 Notes: Patient is a 33-year-old female that comes into the emergency department for generalized symptoms for 1 week including chills, body aches, sore throat, sensation of shortness of breath, and frequent nausea. She denies vomiting, diarrhea, chest pain, headache, difficulty swallowing, nasal or sinus conge stion. She states she has been around her significant other who is coughing but she denies any obvious sick contacts otherwise, denies recent travel or exposures. She has not had the influenza vaccine. She states she feels very anxious and is requesting something for anxiety as well. She has a past medical history of type 2 diabetes, hypertension, hyperlipidemia, bipolar disorder, reports having a cardiac cath in 2016 with "a blockage too small to stent", states she takes as needed nitro, she had a negative stress test within the past year reportedly. She states she just saw cardiology and they made no adjustments or reported any concerns. She denies chest pain. Patient smokes, denies alcohol or recreational drugs. TRAVEL OUTSIDE OF THE [place] IN LAST 30 DAYS: No - Related Data Allergies/Adverse Reactions: trazodone Allergy (Verified 08/26/19 21:09) metformin Adverse Reaction (Severe, Verified 08/26/19 21:09) V/D Home Medications: metoprool. atorvastatin. cymbalta. hydroxizine. asa 81. clairatin. pepcid. tylenol. ibuprofen. nitro Past Medical History - General Information source: Patient - Social History Smoking Status: Former Smoker Chew tobacco use (# tins/day): No Frequency of alcohol use: None Drug Abuse: None Lives with: Family Family History: Reviewed & Not Pertinent, CAD, DM, Hyperlipidemia, Hypertension, Other - CKD Patient has suicidal ideation: No Patient has homicidal ideation: No - Past Medical History Cardiac Medical History: Reports: Hx Heart Attack - May 2017, Hx Hypercholesterolemia, Hx Hypertension Endocrine Medical History: Reports: Hx Diabetes Mellitus Type 2 Renal/ Medical History: Denies: Hx Peritoneal Dialysis Psychiatric Medical History: Reports: Hx Anxiety, Hx Bipolar Disorder, Hx Depression, Hx Post Traumatic Stress Disorder Past Surgical History: Reports: Hx Breast Surgery - R breast duct excision, Hx Cardiac Catheterization - no stents placed, Hx Cholecystectomy Review of Systems - Review of Systems Constitutional: See HPI EENT: See HPI Cardiovascular: No symptoms reported Respiratory: See HPI Gastrointestinal: See HPI Genitourinary: No symptoms reported Female Genitourinary: No symptoms reported Musculoskeletal: No symptoms reported Skin: No symptoms reported Hematologic/Lymphatic: No symptoms reported Neurological/Psychological: See HPI Physical Exam - Vital signs Vitals: Temp Pulse Resp BP Pulse Ox 98.4 F 71 20 176/78 H 100 09/15/19 02:02 09/15/19 02:02 09/15/19 02:02 09/15/19 02:02 09/15/19 02:02 - Notes Notes: GENERAL: Alert, interacts well. No acute distress. HEAD: Normocephalic, atraumatic. EYES: Pupils equal, round, and reactive to light. Extraocular movements intact. ENT: Oral mucosa moist, tongue midline. Oropharynx unremarkable. Airway patent. Minimal nasal congestion, no nasal septal hematoma, TM's intact. NECK: Full range of motion. Supple. Trachea midline. LUNGS: Clear to auscultation bilaterally, no wheezes, rales, or rhonchi. No respiratory distress. HEART: Regular rate and rhythm. No murmur ABDOMEN: Soft, non-tender. Non-distended. EXTREMITIES: Moves all 4 extremities spontaneously. No edema, normal radial and dorsalis pedis pulses bilaterally. No cyanosis. BACK: no cervical, thoracic, lumbar midline tenderness. No saddle anesthesia, normal distal neurovascular exam. Moves all extremities in full range of motion. NEUROLOGICAL: Alert and oriented x3. Normal speech. Cranial nerves II through XII grossly intact. PSYCH: Normal affect, normal mood. SKIN: Warm, dry, normal turgor. No rashes or lesions noted. Course - Re-evaluation Re-evalutation: Patient presents with a variety of reported symptoms. She is quite well- appearing. Vital signs unremarkable except for hypertension. Patient is asking to be treated for anxiety, she states that she has been given Ativan here before with good results. She was given a dose of this along with Phenergan for reported nausea. On reevaluation she continues to be well-appearing, blood pressure improved, vital signs again generally unremarkable. Symptoms have been going on for an extended period but work-up was unremarkable including CBC, chemistry, troponin, EKG, chest x-ray except for mildly elevated glucose without acidosis. Influenza negative, chronic test had been performed and is pending. Overall patient has mild viral symptoms with no concerning findings otherwise, discussed isolation recommendations, discussed work-up in detail. Patient states appreciation and agreement. Patient requests a prescription for Ativan for generalized anxiety. Unfortunately patient has fill ed 3 controlled substance prescriptions within the past month from this facility, I explained to her I would be unable to provide her with a prescription for this for her ongoing condition of anxiety, advised her to follow-up with her psychiatrist for additional management of anxiety. Patient does state understanding. She is not suicidal or homicidal. Stable and well- appearing at time of discharge. - Vital Signs Vital signs: Temp Pulse Resp BP Pulse Ox 98.3 F 72 16 143/78 H 100 09/15/19 05:09 09/15/19 05:09 09/15/19 05:09 09/15/19 05:09 09/15/19 05:09 - Laboratory Result Diagrams: 09/15/19 02:50 09/15/19 02:50 Laboratory results interpreted by me: 09/15/19 09/15/19 02:50 02:50 WBC 11.3 H MCH 26.9 L RDW 14.6 H Potassium 5.1 H Glucose 219 H - EKG Interpretation by Me Additional EKG results interpreted by me: EKG shows sinus rhythm at a rate of 69, QTC of 455, normal axis, no T wave inversions or ST segment changes in consecutive leads, machine reads as normal. Discharge - Discharge Clinical Impression: Body aches, Chills, Nausea, Anxiety Condition: Stable Disposition: HOME, SELF-CARE Additional Instructions: Your work-up is reassuring at this time. We do have the coronavirus test pending, please perform isolation until these results are back to avoid transmitting it to other people. Take Tylenol and ibuprofen for body aches and chills, take nausea medication as prescribed if needed, drink plenty fluids and rest. Follow-up with your primary care provider for additional evaluation and management of anxiety. Return if you worsen including difficulty breathing, spiking fevers, uncontrolled vomiting, or any other concerning or worsening symptoms. Prescriptions: Promethazine HCl [Phenergan 25 mg Tablet] 25 mg PO Q6H PRN #20 tablet PRN Reason:
[2019-09-15 03:05] LABS: ABSOLUTE BASOPHILS # (AUTO) 0.1 10^3/uL (0.0-0.2); ABSOLUTE EOSINOPHILS # (AUTO) 0.2 10^3/uL (0.0-0.6); ABSOLUTE LYMPHOCYTES (AUTO) 2.5 10^3/uL (0.5-4.7); ABSOLUTE MONOCYTES (AUTO) 0.5 10^3/uL (0.1-1.4); ABSOLUTE NEUT (AUTO) 8.1 10^3/uL (1.7-8.2); BASOPHILS % (AUTO) 0.5 % (0-2); EOSINOPHILS % (AUTO) 1.7 % (0-6); HEMATOCRIT 41.7 % (36.0-47.0); HEMOGLOBIN 13.9 g/dL (12.0-15.5); LYMPHOCYTES % (AUTO) 21.8 % (13-45); MEAN CORPUSCULAR HEMOGLOBIN 26.9 pg (27.0-33.4); MEAN CORPUSCULAR HGB CONC 33.4 g/dL (32.0-36.0); MEAN CORPUSCULAR VOLUME 81 fl (80-97); PLATELET COUNT 250 10^3/uL (150-450); RED BLOOD COUNT 5.18 10^6/uL (3.72-5.28); RED CELL DISTRIBUTION WIDTH 14.6 % (11.5-14.0); TOTAL CELLS COUNTED % (AUTO) 100 %; WHITE BLOOD COUNT 11.3 10^3/uL (4.0-10.5)
[2019-09-15 03:14] LABS: APPEARANCE,URINE SLIGHTLY-CLOUDY; BILIRUBIN,URINE NEGATIVE (NEGATIVE); COLOR,URINE YELLOW; GLUCOSE, URINE NEGATIVE (NEGATIVE); KETONES,URINE NEGATIVE (NEGATIVE); LEUKOCYTE ESTERASE,URINE NEGATIVE (NEGATIVE); NITRITE,URINE NEGATIVE (NEGATIVE); PROTEIN,URINE NEGATIVE (NEGATIVE); URINE SPECIFIC GRAVITY 1.018; UROBILINOGEN,URINE NEGATIVE mg/dL (<2.0)
[2019-09-15 03:24] LABS: ALBUMIN 4.7 g/dL (3.5-5.0); ALKALINE PHOSPHATASE 97 U/L (38-126); ANION GAP 8 (5-19); ASPARTATE AMINO TRANSFERASE 20 U/L (14-36); BILIRUBIN,TOTAL 0.3 mg/dL (0.2-1.3); BLOOD UREA NITROGEN 11 mg/dL (7-20); CALCIUM 9.5 mg/dL (8.4-10.2); CARBON DIOXIDE 27 mmol/L (22-30); CHLORIDE 102 mmol/L (98-107); GLUCOSE 219 mg/dL (75-110); POTASSIUM 5.1 mmol/L (3.6-5.0); TOTAL PROTEIN 7.5 g/dL (6.3-8.2)
[2019-09-15 03:31] LABS: A TYPE INFLUENZA AG NEGATIVE (NEGATIVE); B INFLUENZA AG NEGATIVE (NEGATIVE)
--- NOTE | 2019-09-15 03:33 | RADIOLOGY REPORT (SQ) ---
Chest one view on 09/15/2019 at 2:59 AM CLINICAL INDICATION: Shortness of breath COMPARISON: 08/26/2019 FINDINGS: The lungs are clear. Cardiac, hilar and mediastinal contours are within normal limits. Pulmonary vascularity is within normal limits. No bony abnormality is noted. IMPRESSION: No active disease.
[2019-09-15 05:11] VITALS: BP 143/78
--- NOTE | 2019-09-15 10:02 | EKG REPORT ---
SEVERITY:- NORMAL ECG - SINUS RHYTHM : Confirmed by: Pepito Hall MD 15-Sep-2019 10:02:17
== END 2019-09-15 05:40 | disposition home or self-care (01) ==
LOC: ER 01:54
DX: Z20.828 Contact with and (suspected) exposure to other viral communicable diseases (principal); R06.00 Dyspnea, unspecified; M79.10 Myalgia, unspecified site; F41.9 Anxiety disorder, unspecified; R11.0 Nausea; R68.83 Chills (without fever); R06.02 Shortness of breath; Z79.82 Long term (current) use of aspirin
CPT/HCPCS: 36415; 71045; 80053; 81001; 84484; 84703; 85025; 87635; 87804; 93005; 93010; 99284